=== PATIENT | male | born 1945 | race Caucasian/White ===

== ENCOUNTER 2017-01-25 09:02 | Outpatient (CLI) | payer MEDICARE, OTHER | END 2017-01-25 09:03 | disposition home or self-care (01) | DX: R73.02 Impaired glucose tolerance (oral) (principal); I25.10 Atherosclerotic heart disease of native coronary artery without angina pectoris; I10 Essential (primary) hypertension; E55.9 Vitamin D deficiency, unspecified; E78.00 Pure hypercholesterolemia, unspecified; E78.1 Pure hyperglyceridemia; E78.2 Mixed hyperlipidemia ==

== ENCOUNTER 2017-04-26 09:44 | Outpatient (CLI) | payer MEDICARE, OTHER ==
[2017-04-26 11:14] LABS: GTT GLUCOSE,FASTING 111 mg/dL (70-100)
[2017-04-28 18:48] LABS: TEST RESULT REPORT (())
== END 2017-04-26 09:45 | disposition home or self-care (01) ==
LOC: LAB 09:44
PROVIDERS: ATTEND Nurse Practitioner
DX: E55.9 Vitamin D deficiency, unspecified (principal); I10 Essential (primary) hypertension; E78.00 Pure hypercholesterolemia, unspecified; E78.2 Mixed hyperlipidemia
CPT/HCPCS: 36415; 81599; 82951; 83525; 85384

== ENCOUNTER 2017-07-26 09:59 | Outpatient (CLI) | payer MEDICARE, OTHER ==
[2017-07-26 11:05] LABS: CHOL/HDL RATIO 2.5 (<5.0); CHOLESTEROL 113 mg/dL; HDL CHOLESTEROL 45 mg/dL; LDL/HDL RATIO 1.3 (<3.6); TRIGLYCERIDES 53 mg/dL; VLDL CHOLESTEROL 11 mg/dL
[2017-07-28 11:01] LABS: TEST RESULT REPORT (())
== END 2017-07-26 10:00 | disposition home or self-care (01) ==
LOC: LAB 09:59
PROVIDERS: ATTEND Nurse Practitioner
DX: I10 Essential (primary) hypertension (principal); R73.02 Impaired glucose tolerance (oral); E55.9 Vitamin D deficiency, unspecified; E78.00 Pure hypercholesterolemia, unspecified; E78.2 Mixed hyperlipidemia; I25.10 Atherosclerotic heart disease of native coronary artery without angina pectoris
CPT/HCPCS: 36415; 80061; 81599; 82172

== ENCOUNTER 2017-11-28 09:57 | Outpatient (CLI) | payer MEDICARE, OTHER ==
[2017-11-28 11:26] LABS: CHOL/HDL RATIO 2.3 (<5.0); CHOLESTEROL 117 mg/dL; HDL CHOLESTEROL 51 mg/dL; LDL CHOLESTEROL,CALCULATED 56 mg/dL; LDL/HDL RATIO 1.1 (<3.6); VLDL CHOLESTEROL 10 mg/dL
== END 2017-11-28 09:58 | disposition home or self-care (01) ==
LOC: LAB 09:57
PROVIDERS: ATTEND Nurse Practitioner
DX: R73.02 Impaired glucose tolerance (oral) (principal); E78.2 Mixed hyperlipidemia; I10 Essential (primary) hypertension; E55.9 Vitamin D deficiency, unspecified; E78.00 Pure hypercholesterolemia, unspecified; E88.81 Metabolic syndrome and other insulin resistance; I25.10 Atherosclerotic heart disease of native coronary artery without angina pectoris
CPT/HCPCS: 36415; 80061; 81599; 82172; 83721

== ENCOUNTER 2018-03-14 10:07 | Outpatient (CLI) | payer MEDICARE, OTHER ==
[2018-03-14 11:13] LABS: BILIRUBIN,URINE NEGATIVE (NEGATIVE); GLUCOSE, URINE (UA) NEGATIVE (NEGATIVE); KETONES,URINE (UA) NEGATIVE (NEGATIVE); LEUKOCYTE ESTERASE, URINE NEGATIVE (NEGATIVE); NITRITE,URINE NEGATIVE (NEGATIVE); OCCULT BLOOD,URINE NEGATIVE (NEGATIVE); PROTEIN,URINE NEGATIVE (NEGATIVE); UROBILINOGEN,URINE 0.2 (NORMAL) E.U./dL (NORMAL)
[2018-03-14 11:28] LABS: CLARITY,URINE CLEAR (CLEAR)
[2018-03-14 11:29] LABS: CHOL/HDL RATIO 2.8 (<5.0); CHOLESTEROL 116 mg/dL; HDL CHOLESTEROL 41 mg/dL; LDL CHOLESTEROL,CALCULATED 66 mg/dL; LDL/HDL RATIO 1.6 (<3.6); VLDL CHOLESTEROL 9 mg/dL
[2018-03-15 11:16] LABS: HEPATITIS C ANTIBODY NON-REACTIVE (NON-REACTIVE)
== END 2018-03-14 10:08 | disposition home or self-care (01) ==
LOC: LAB 10:07
PROVIDERS: ATTEND Nurse Practitioner
DX: R73.02 Impaired glucose tolerance (oral) (principal); I10 Essential (primary) hypertension; E55.9 Vitamin D deficiency, unspecified; E78.00 Pure hypercholesterolemia, unspecified; E78.2 Mixed hyperlipidemia; E88.81 Metabolic syndrome and other insulin resistance; I25.10 Atherosclerotic heart disease of native coronary artery without angina pectoris
CPT/HCPCS: 36415; 80061; 81003; 81599; 82172; 82951; 83721; 84402; 84403; 85384; 86803

== ENCOUNTER 2018-08-24 11:00 | Outpatient (CLI) | payer MEDICARE, OTHER ==
[2018-08-24 17:37] LABS: BASOPHILS % (AUTO) 0.5 %; EOSINOPHILS # (AUTO) 0.1 10^3/uL (0.0-0.7); HGB - HEMOGLOBIN 10.6 g/dL (14.0-18.0); LYMPHOCYTES # (AUTO) 1.8 10^3/uL (1.5-3.5); LYMPHOCYTES % (AUTO) 21.8 %; MEAN CORPUSCULAR HEMOGLOBIN 28.2 pg (27.0-31.0); MEAN CORPUSCULAR HGB CONC 32.9 g/dL (32.0-36.0); MEAN CORPUSCULAR VOLUME 85.7 fL (80.0-94.0); MEAN PLATELET VOLUME 7.5 fL (7.4-11.4); MONOCYTES # (AUTO) 0.7 10^3/uL (0.0-1.0); MONOCYTES % (AUTO) 7.8 %; NEUTROPHILS # (AUTO) 5.8 10^3/uL (1.5-6.6); NEUTROPHILS % (AUTO) 68.9 %; PLT - PLATELET COUNT 341 10^3/uL (130-450); RED BLOOD COUNT 3.77 10^6/uL (4.70-6.10); RED CELL DISTRIBUTION WIDTH 15.8 % (12.0-15.0); WHITE BLOOD COUNT 8.4 x10^3/uL (4.8-10.8)
[2018-08-24 17:59] LABS: ALBUMIN/GLOBULIN RATIO 1.3 (1.0-2.2); BILIRUBIN,TOTAL 0.3 mg/dL (0.2-1.0); CALCIUM 9.8 mg/dL (8.5-10.3); CREATININE 0.7 mg/dL (0.6-1.2); TOTAL PROTEIN 7.1 g/dL (6.7-8.2)
== END 2018-08-24 11:01 | disposition home or self-care (01) ==
LOC: LAB.F 11:00
PROVIDERS: ATTEND Internal Medicine
DX: R10.13 Epigastric pain (principal)
CPT/HCPCS: 36415; 80053; 85025

== ENCOUNTER 2018-08-29 14:01 | Outpatient (CLI) | payer MEDICARE, OTHER ==
[2018-08-29 18:05] LABS: BASOPHILS % (AUTO) 0.4 %; EOSINOPHILS # (AUTO) 0.1 10^3/uL (0.0-0.7); EOSINOPHILS % (AUTO) 0.7 %; HGB - HEMOGLOBIN 10.6 g/dL (14.0-18.0); LYMPHOCYTES # (AUTO) 1.8 10^3/uL (1.5-3.5); LYMPHOCYTES % (AUTO) 21.5 %; MEAN CORPUSCULAR HEMOGLOBIN 28.4 pg (27.0-31.0); MEAN CORPUSCULAR HGB CONC 33.3 g/dL (32.0-36.0); MEAN CORPUSCULAR VOLUME 85.1 fL (80.0-94.0); MEAN PLATELET VOLUME 7.2 fL (7.4-11.4); MEAN RETIC VALUE 112.8; MONOCYTES # (AUTO) 0.6 10^3/uL (0.0-1.0); MONOCYTES % (AUTO) 7.1 %; NEUTROPHILS # (AUTO) 5.7 10^3/uL (1.5-6.6); NEUTROPHILS % (AUTO) 70.3 %; PLT - PLATELET COUNT 338 10^3/uL (130-450); RED BLOOD COUNT 3.72 10^6/uL (4.70-6.10); RED CELL DISTRIBUTION WIDTH 16.1 % (12.0-15.0); WHITE BLOOD COUNT 8.1 x10^3/uL (4.8-10.8)
[2018-08-29 18:38] LABS: THYROID STIMULATING HORMONE 1.11 uIU/mL (0.34-5.60)
[2018-08-29 18:46] LABS: FERRITIN 15.7 ng/mL (23.9-336.2)
[2018-08-29 18:49] LABS: FOLATE 20.45 ng/mL (5.90 - >24.8)
[2018-08-29 19:20] LABS: % IRON SATURATION 5 % (20-50); IRON 27 ug/dL (45-182); TOTAL IRON BINDING CAPACITY 504 ug/dL (250-450); TRANSFERRIN 360 mg/dL (180-329)
== END 2018-08-29 14:02 | disposition home or self-care (01) ==
LOC: LAB.F 14:01
PROVIDERS: ATTEND Internal Medicine
DX: D64.9 Anemia, unspecified (principal)
CPT/HCPCS: 36415; 81599; 82607; 82728; 82746; 83540; 84443; 84466; 85025; 85044

== ENCOUNTER 2018-09-04 16:57 | Outpatient (CLI) | payer MEDICARE, OTHER ==
--- NOTE | 2018-09-04 23:42 | Ultrasound Report ---
Reason: ABDOMINAL PAIN, EPIGASTRIC, ABDOMINAL AORTIC ANEUR Procedure Date: 09/04/2018 Accession Number: [id number] / [id number] Procedure: US - Abdomen Complete CPT Code: FULL RESULT: EXAM: ABDOMEN ULTRASOUND EXAM DATE: 09/04/2018 06:05 PM. CLINICAL HISTORY: Abdominal pain, epigastric, abdominal aortic aneurysm. COMPARISON: Retroperitoneal limited 11/25/2015 9:22 AM. Abdomen/pelvis with and without contrast 05/07/2014 1:27 PM. 11/26/2014 9:32 AM. TECHNIQUE: Real-time scanning was performed with static images obtained. FINDINGS: Liver: Normal in size and echotexture. 15.2 cm. Main portal vein flow: Hepatopetal. Gallbladder: Surgically absent. Biliary System: Common bile duct measures 6 mm. No intrahepatic or extrahepatic ductal dilatation. Pancreas: No mass, atrophy or calcifications. Pancreatic duct measures up to 2 mm. Kidneys: Right: 12.9 cm longitudinally. 0.7 cm echogenic focus noted in the mid right kidney with posterior acoustic shadowing. No renal mass is noted. There are multiple simple right-sided renal cysts with the largest including a 2.9 x 2.5 x 2.6 cm inferior right and 2.1 x 1.7 x 2.2 cm mid right renal simple cyst. Left: 12.7 cm longitudinally. No contour-deforming mass, stones, or hydronephrosis. There are multiple simple left-sided renal cysts with the largest cyst including a 4.7 x 3.4 x 4.8 cm superior left and 4.8 x 4.5 x 5.1 cm inferior left renal simple cyst. No concerning features. Spleen: 8 x 3.1 x 8.1 cm. Normal in size and echotexture. Aorta and Inferior Vena Cava: Distal abdominal aortic aneurysm measures 5.3 x 4.6 cm. Previously measuring 5.1 x 4.8 cm. Length of the aneurysm measures 7.2 cm. Mid abdominal aorta is ectatic measuring between 2.6 cm and 3.3 cm respectively. Normal proximal abdominal aorta. Eccentric thrombus is noted. Normal IVC. Other: Technically limited study due to body habitus. IMPRESSION: 1. No liver mass or intrahepatic bile duct dilation. 2. Gallbladder is surgically absent. No common bile duct or intrahepatic bile duct dilation. Pancreas grossly unremarkable. Pancreatic duct measures 2 mm. 3. Relatively stable distal abdominal aortic aneurysm with eccentric thrombus. No retroperitoneal hematoma. Ectasia of the midabdominal aorta. 4. Multiple bilateral renal cysts. No concerning features. Nonobstructing right-sided 0.7 cm renal stone. No mass. RADIA
== END 2018-09-04 16:58 | disposition home or self-care (01) ==
LOC: DI 16:57
PROVIDERS: ATTEND Internal Medicine
DX: I71.4 Abdominal aortic aneurysm, without rupture (principal); Q61.02 Congenital multiple renal cysts; N20.0 Calculus of kidney
CPT/HCPCS: 76700

== ENCOUNTER 2018-09-05 09:39 | Outpatient (CLI) | payer MEDICARE, OTHER ==
[2018-09-05 10:37] LABS: ALT ALANINE AMINOTRANSFERASE 13 IU/L (10-60); AST ASPARTATE AMINOTRANSFERASE 36 IU/L (10-42); CHOL/HDL RATIO 2.4 (<5.0); CHOLESTEROL 129 mg/dL; CREATININE 0.7 mg/dL (0.6-1.2); GFR - MDRD 111 (>89); GLUCOSE 102 mg/dL (70-100); HDL CHOLESTEROL 53 mg/dL
[2018-09-05 10:49] LABS: HEMOGLOBIN A1C 0.46 g/dL
[2018-09-05 10:57] LABS: LDL CHOLESTEROL,DIRECT 66 mg/dL; LDLD/HDL RATIO 1.2 (<3.6)
[2018-09-06 11:41] LABS: HEPATITIS C ANTIBODY NON-REACTIVE (NON-REACTIVE)
== END 2018-09-05 09:40 | disposition home or self-care (01) ==
LOC: LAB 09:39
PROVIDERS: ATTEND Nurse Practitioner
DX: R73.02 Impaired glucose tolerance (oral) (principal); I25.10 Atherosclerotic heart disease of native coronary artery without angina pectoris; I10 Essential (primary) hypertension; E55.9 Vitamin D deficiency, unspecified; E78.00 Pure hypercholesterolemia, unspecified; E78.2 Mixed hyperlipidemia
CPT/HCPCS: 36415; 80061; 81599; 82565; 82947; 83036; 83721; 84450; 84460; 86803

== ENCOUNTER 2018-11-27 10:49 | Outpatient (CLI) | payer MEDICARE, OTHER | END 2018-11-27 10:50 | disposition home or self-care (01) | LOC: LAB.F 10:49 | PROVIDERS: ATTEND Internal Medicine Gastroenterology | DX: R19.4 Change in bowel habit (principal); D50.9 Iron deficiency anemia, unspecified; R10.84 Generalized abdominal pain | CPT/HCPCS: 36415; 81599; 83516; 86255 ==

== ENCOUNTER 2019-01-16 09:27 | Outpatient (CLI) | payer MEDICARE, OTHER ==
[2019-01-16 10:25] LABS: CHOLESTEROL 110 mg/dL; HDL CHOLESTEROL 54 mg/dL
[2019-01-16 10:45] LABS: LDL CHOLESTEROL,DIRECT 53 mg/dL
== END 2019-01-16 09:28 | disposition home or self-care (01) ==
LOC: LAB 09:27
PROVIDERS: ATTEND Nurse Practitioner
DX: E55.9 Vitamin D deficiency, unspecified (principal); I10 Essential (primary) hypertension; E78.2 Mixed hyperlipidemia; I25.10 Atherosclerotic heart disease of native coronary artery without angina pectoris; R73.02 Impaired glucose tolerance (oral)
CPT/HCPCS: 36415; 80061; 81599; 82172; 83721

== ENCOUNTER 2019-04-04 08:10 | Outpatient (CLI) | payer MEDICARE, OTHER ==
[2019-04-04 10:56] LABS: BASOPHILS # (AUTO) 0.1 10^3/uL (0.0-0.1); BASOPHILS % (AUTO) 0.7 %; EOSINOPHILS # (AUTO) 0.2 10^3/uL (0.0-0.7); EOSINOPHILS % (AUTO) 2.2 %; HGB - HEMOGLOBIN 9.8 g/dL (14.0-18.0); LYMPHOCYTES # (AUTO) 1.7 10^3/uL (1.5-3.5); LYMPHOCYTES % (AUTO) 18.9 %; MEAN CORPUSCULAR HEMOGLOBIN 27.4 pg (27.0-31.0); MEAN CORPUSCULAR HGB CONC 32.2 g/dL (32.0-36.0); MEAN CORPUSCULAR VOLUME 85.2 fL (80.0-94.0); MONOCYTES # (AUTO) 0.7 10^3/uL (0.0-1.0); MONOCYTES % (AUTO) 7.3 %; NEUTROPHILS # (AUTO) 6.3 10^3/uL (1.5-6.6); NEUTROPHILS % (AUTO) 70.9 %; PLT - PLATELET COUNT 398 10^3/uL (130-450); RED BLOOD COUNT 3.58 10^6/uL (4.70-6.10); RED CELL DISTRIBUTION WIDTH 15.8 % (12.0-15.0); WHITE BLOOD COUNT 8.9 x10^3/uL (4.8-10.8)
[2019-04-04 11:01] LABS: ALBUMIN 3.6 g/dL (3.2-5.5); BILIRUBIN,TOTAL 0.3 mg/dL (0.2-1.0); CREATININE 0.9 mg/dL (0.6-1.2); TOTAL PROTEIN 7.3 g/dL (6.7-8.2)
[2019-04-04 11:17] LABS: HB2 TOTAL 10.2 g/dL; HEMOGLOBIN A1C 0.56 g/dL; HEMOGLOBIN A1C % 7.2 % (4.6-6.2)
== END 2019-04-04 08:11 | disposition home or self-care (01) ==
LOC: LAB.F 08:10
PROVIDERS: ATTEND Internal Medicine
DX: R63.4 Abnormal weight loss (principal); Z12.5 Encounter for screening for malignant neoplasm of prostate
CPT/HCPCS: 36415; 83036; G0103; 80053; 84153; 84443; 85025

== ENCOUNTER 2019-05-10 11:26 | Outpatient (CLI) | payer MEDICARE, OTHER ==
--- NOTE | 2019-05-10 16:30 | XRAY Report ---
Reason: WEIGHT LOSS ABNORMAL Procedure Date: 05/10/2019 Accession Number: [id number] / [id number] Procedure: XR - Chest 2 View X-Ray CPT Code: 15777 FULL RESULT: EXAM: CHEST RADIOGRAPHY 2 VIEWS EXAM DATE: 05/10/2019. CLINICAL HISTORY: Abnormal weight loss. COMPARISON: None. TECHNIQUE: PA and lateral views. FINDINGS: Lungs/Pleura: Normal vasculature. Left upper lobe mass anterior to the left hilum, 8.2 x 9.5 x 9.5 cm. The mass is contiguous with the left hilum, the left mediastinum, the ascending aorta in the anterior chest wall. The left diaphragm is elevated suggesting phrenic nerve involvement. No pleural fluid or pneumothorax. Mediastinum: Heart size is normal. Atherosclerotic calcifications in the aorta. Bones: Mild degenerative changes of the spine. Other: Upper abdominal aortic stent. Cholecystectomy clips in the upper abdomen. IMPRESSION: Large left upper lobe mass contiguous with the left hilum, left side of the mediastinum, ascending aorta and anterior left chest wall, consistent with carcinoma. Elevation of the left diaphragm suggests left phrenic nerve involvement. Recommend further evaluation with chest CT. Note: The findings were called to Perla, a nurse practitioner at the clinic, at 1625 on 05/10/2019. SANCHO
== END 2019-05-10 11:27 | disposition home or self-care (01) ==
LOC: DI 11:26
PROVIDERS: ATTEND Internal Medicine
DX: R63.4 Abnormal weight loss (principal); R91.8 Other nonspecific abnormal finding of lung field
CPT/HCPCS: 71046

== ENCOUNTER 2019-05-17 10:38 | Outpatient (CLI) | payer MEDICARE, OTHER ==
[2019-05-17] MEDS ORDERED: IOVERSOL 320 100 ML VIAL IVP ONE ×2 (10:53→11:07)
--- NOTE | 2019-05-17 17:25 | CT Report ---
Reason: WEIGHT LOSS ABNORMAL, NEOPLASM, LUNG, UNCERTAIN BE Procedure Date: 05/17/2019 Accession Number: [id number] / [id number] Procedure: CT - CHEST W CPT Code: FULL RESULT: EXAM: CT CHEST EXAM DATE: 05/17/2019 11:06 AM. CLINICAL HISTORY: WEIGHT LOSS ABNORMAL, NEOPLASM, LUNG, UNCERTAIN BE. COMPARISONS: CHEST 2 VIEW 05/10/2019 12:10 PM. TECHNIQUE: Routine helical CT imaging was performed through the chest. IV contrast: 80 cc Optiray 320. Reconstructions: Coronal and sagittal. In accordance with CT protocol optimization, one or more of the following dose reduction techniques were utilized for this exam: automated exposure control, adjustment of mA and/or KV based on patient size, or use of iterative reconstructive technique. FINDINGS: Lungs/Pleura: Large slightly lobulated anterior left upper lobe mass measuring as much as 10.0 x 7.7 x 8.4 cm, inseparable from the adjacent mediastinum and displacing it slightly. 4.5 mm nodule in right lower lobe on series 4 image 28. Roughly 5 mm poorly defined nodule in the left lung base on that same image. No effusion or pneumothorax. Mediastinum: Normal overall heart size. No pericardial effusion. At least 3 vessel coronary artery calcification. Left lung mass inseparable from mediastinum, making it difficult to exclude AP window adenopathy. No other evidence of lymphadenopathy. Bones: Mild scoliosis with degenerative changes. Visualized Abdomen: Abdominal aortic aneurysm incompletely seen, with stent in place. Multiple renal cysts. Status post cholecystectomy. Other: Mild to moderate bilateral gynecomastia. IMPRESSION: 1. Large anterior left upper lobe mass inseparable from adjacent mediastinum. Biopsy is recommended. 2. Other small nodular densities, one on the right and one on the left, benign versus metastatic. 3. Coronary artery calcifications and other chronic or incidental findings. RADIA
== END 2019-05-17 10:39 | disposition home or self-care (01) ==
LOC: DI 10:38
PROVIDERS: ATTEND Internal Medicine
DX: R91.8 Other nonspecific abnormal finding of lung field (principal); D38.1 Neoplasm of uncertain behavior of trachea, bronchus and lung; R63.4 Abnormal weight loss
CPT/HCPCS: 71260; Q9967

== ENCOUNTER 2019-06-12 08:56 | Outpatient (CLI) | payer MEDICARE, OTHER ==
[2019-06-12 10:19] LABS: BILIRUBIN,URINE NEGATIVE (NEGATIVE); GLUCOSE, URINE (UA) NEGATIVE (NEGATIVE); KETONES,URINE (UA) NEGATIVE (NEGATIVE); LEUKOCYTE ESTERASE, URINE NEGATIVE (NEGATIVE); NITRITE,URINE NEGATIVE (NEGATIVE); OCCULT BLOOD,URINE NEGATIVE (NEGATIVE); PROTEIN,URINE NEGATIVE (NEGATIVE); UROBILINOGEN,URINE 0.2 (NORMAL) E.U./dL (NORMAL)
[2019-06-12 10:20] LABS: BACTERIA,URINE None Seen /HPF (None Seen); CLARITY,URINE CLEAR (CLEAR); RBC,URINE None Seen /HPF (0-5); SQUAMOUS EPITHELIAL CELL,UR NONE SEEN (<= Few)
== END 2019-06-12 08:57 | disposition home or self-care (01) ==
LOC: LAB 08:56
PROVIDERS: ATTEND Nurse Practitioner
DX: E55.9 Vitamin D deficiency, unspecified (principal); E78.00 Pure hypercholesterolemia, unspecified; E78.2 Mixed hyperlipidemia; I10 Essential (primary) hypertension; R73.02 Impaired glucose tolerance (oral); E79.0 Hyperuricemia without signs of inflammatory arthritis and tophaceous disease; I25.10 Atherosclerotic heart disease of native coronary artery without angina pectoris; I70.90 Unspecified atherosclerosis
CPT/HCPCS: 36415; 81001; 82951; 82977; 87086

== ENCOUNTER 2019-07-17 15:27 | Outpatient (CLI) | payer MEDICARE, OTHER ==
[2019-07-17 17:45] LABS: CREATININE 1.1 mg/dL (0.6-1.2)
== END 2019-07-17 15:28 | disposition home or self-care (01) ==
LOC: LAB.S 15:27
PROVIDERS: ATTEND Specialist
DX: C79.31 Secondary malignant neoplasm of brain (principal); C34.90 Malignant neoplasm of unspecified part of unspecified bronchus or lung
CPT/HCPCS: 36415; 82565; 84520

== ENCOUNTER 2019-08-13 14:20 | Outpatient (CLI) | payer MEDICARE, OTHER ==
[2019-08-13 15:19] LABS: BASOPHILS # (AUTO) 0.1 10^3/uL (0.0-0.1); BASOPHILS % (AUTO) 0.5 %; EOSINOPHILS # (AUTO) 0.1 10^3/uL (0.0-0.7); EOSINOPHILS % (AUTO) 1.3 %; HGB - HEMOGLOBIN 8.2 g/dL (14.0-18.0); LYMPHOCYTES # (AUTO) 1.9 10^3/uL (1.5-3.5); LYMPHOCYTES % (AUTO) 17.7 %; MEAN CORPUSCULAR HEMOGLOBIN 24.1 pg (27.0-31.0); MEAN CORPUSCULAR VOLUME 80.3 fL (80.0-94.0); MEAN PLATELET VOLUME 7.9 fL (7.4-11.4); MONOCYTES # (AUTO) 0.8 10^3/uL (0.0-1.0); MONOCYTES % (AUTO) 7.3 %; NEUTROPHILS # (AUTO) 7.7 10^3/uL (1.5-6.6); NEUTROPHILS % (AUTO) 72.8 %; PLT - PLATELET COUNT 506 10^3/uL (130-450); RED CELL DISTRIBUTION WIDTH 15.7 % (12.0-15.0); WHITE BLOOD COUNT 10.6 x10^3/uL (4.8-10.8)
[2019-08-13 15:34] LABS: ALBUMIN 3.5 g/dL (3.2-5.5); ALBUMIN/GLOBULIN RATIO 0.9 (1.0-2.2); ALKALINE PHOSPHATASE 37 IU/L (42-121); ALT ALANINE AMINOTRANSFERASE < 10 IU/L (10-60); AST ASPARTATE AMINOTRANSFERASE 24 IU/L (10-42); BILIRUBIN,TOTAL 0.4 mg/dL (0.2-1.0); BUN - BLOOD UREA NITROGEN 21 mg/dL (6-20); CALCIUM 10.5 mg/dL (8.5-10.3); CARBON DIOXIDE - CO2 29 mmol/L (21-32); CHLORIDE 99 mmol/L (101-111); CREATININE 0.9 mg/dL (0.6-1.2); GFR - MDRD 83 (>89); GLUCOSE 141 mg/dL (70-100); SODIUM 139 mmol/L (135-145); TOTAL PROTEIN 7.4 g/dL (6.7-8.2)
== END 2019-08-13 14:21 | disposition home or self-care (01) ==
LOC: LAB.S 14:20 → LAB 14:21
PROVIDERS: ATTEND Internal Medicine
DX: C79.31 Secondary malignant neoplasm of brain (principal)
CPT/HCPCS: 36415; 80053; 84443; 85025

== ENCOUNTER 2019-08-21 12:59 | Outpatient (CLI) | payer MEDICARE, OTHER ==
[2019-08-21 17:22] LABS: BASOPHILS % (AUTO) 0.3 %; EOSINOPHILS # (AUTO) 0.2 10^3/uL (0.0-0.7); EOSINOPHILS % (AUTO) 2.5 %; HGB - HEMOGLOBIN 8.2 g/dL (14.0-18.0); LYMPHOCYTES # (AUTO) 1.2 10^3/uL (1.5-3.5); LYMPHOCYTES % (AUTO) 17.2 %; MEAN CORPUSCULAR HEMOGLOBIN 23.8 pg (27.0-31.0); MEAN CORPUSCULAR VOLUME 79.1 fL (80.0-94.0); MEAN PLATELET VOLUME 9.5 fL (7.4-11.4); MONOCYTES # (AUTO) 0.2 10^3/uL (0.0-1.0); MONOCYTES % (AUTO) 3.4 %; NEUTROPHILS # (AUTO) 5.5 10^3/uL (1.5-6.6); NEUTROPHILS % (AUTO) 76.2 %; PLT - PLATELET COUNT 471 10^3/uL (130-450); RED BLOOD COUNT 3.45 10^6/uL (4.70-6.10); RED CELL DISTRIBUTION WIDTH 15.9 % (12.0-15.0); WHITE BLOOD COUNT 7.2 x10^3/uL (4.8-10.8)
[2019-08-21 18:04] LABS: ALBUMIN 3.4 g/dL (3.2-5.5); ALBUMIN/GLOBULIN RATIO 0.9 (1.0-2.2); ALKALINE PHOSPHATASE 32 IU/L (42-121); ALT ALANINE AMINOTRANSFERASE < 10 IU/L (10-60); AST ASPARTATE AMINOTRANSFERASE 27 IU/L (10-42); BILIRUBIN,TOTAL 0.5 mg/dL (0.2-1.0); BUN - BLOOD UREA NITROGEN 28 mg/dL (6-20); CALCIUM 9.6 mg/dL (8.5-10.3); CARBON DIOXIDE - CO2 30 mmol/L (21-32); CHLORIDE 99 mmol/L (101-111); CREATININE 1.1 mg/dL (0.6-1.2); GFR - MDRD 66 (>89); GLUCOSE 164 mg/dL (70-100); SODIUM 138 mmol/L (135-145)
== END 2019-08-21 13:00 | disposition home or self-care (01) ==
LOC: LAB.S 12:59
PROVIDERS: ATTEND Internal Medicine
DX: C79.31 Secondary malignant neoplasm of brain (principal)
CPT/HCPCS: 36415; 80053; 85025

== ENCOUNTER 2019-09-04 11:25 | Outpatient (CLI) | payer MEDICARE, OTHER ==
[2019-09-04 17:54] LABS: BASOPHILS # (AUTO) 0.1 10^3/uL (0.0-0.1); EOSINOPHILS # (AUTO) 0.2 10^3/uL (0.0-0.7); EOSINOPHILS % (AUTO) 3.3 %; HGB - HEMOGLOBIN 8.6 g/dL (14.0-18.0); LYMPHOCYTES # (AUTO) 1.7 10^3/uL (1.5-3.5); LYMPHOCYTES % (AUTO) 27.8 %; MEAN CORPUSCULAR HEMOGLOBIN 23.2 pg (27.0-31.0); MEAN CORPUSCULAR HGB CONC 29.2 g/dL (32.0-36.0); MEAN CORPUSCULAR VOLUME 79.7 fL (80.0-94.0); MEAN PLATELET VOLUME 8.9 fL (7.4-11.4); MONOCYTES # (AUTO) 0.9 10^3/uL (0.0-1.0); MONOCYTES % (AUTO) 15.3 %; NEUTROPHILS # (AUTO) 3.2 10^3/uL (1.5-6.6); NEUTROPHILS % (AUTO) 51.9 %; PLT - PLATELET COUNT 393 10^3/uL (130-450); RED CELL DISTRIBUTION WIDTH 16.8 % (12.0-15.0); WHITE BLOOD COUNT 6.1 x10^3/uL (4.8-10.8)
[2019-09-04 18:23] LABS: ALBUMIN 3.6 g/dL (3.2-5.5); ALBUMIN/GLOBULIN RATIO 0.9 (1.0-2.2); ALKALINE PHOSPHATASE 38 IU/L (42-121); ALT ALANINE AMINOTRANSFERASE < 10 IU/L (10-60); AST ASPARTATE AMINOTRANSFERASE 21 IU/L (10-42); BILIRUBIN,TOTAL 0.5 mg/dL (0.2-1.0); BUN - BLOOD UREA NITROGEN 24 mg/dL (6-20); CALCIUM 9.7 mg/dL (8.5-10.3); CARBON DIOXIDE - CO2 29 mmol/L (21-32); CHLORIDE 102 mmol/L (101-111); CREATININE 0.9 mg/dL (0.6-1.2); GFR - MDRD 83 (>89); GLUCOSE 109 mg/dL (70-100); SODIUM 139 mmol/L (135-145); TOTAL PROTEIN 7.5 g/dL (6.7-8.2)
== END 2019-09-04 11:26 | disposition home or self-care (01) ==
LOC: LAB.S 11:25
PROVIDERS: ATTEND Internal Medicine
DX: C79.31 Secondary malignant neoplasm of brain (principal); C34.12 Malignant neoplasm of upper lobe, left bronchus or lung
CPT/HCPCS: 36415; 80053; 85025

== ENCOUNTER 2019-09-24 13:57 | Outpatient (CLI) | payer MEDICARE, OTHER ==
[2019-09-24 17:24] LABS: BASOPHILS % (AUTO) 0.4 %; EOSINOPHILS # (AUTO) 0.1 10^3/uL (0.0-0.7); EOSINOPHILS % (AUTO) 1.6 %; HGB - HEMOGLOBIN 9.1 g/dL (14.0-18.0); LYMPHOCYTES # (AUTO) 1.9 10^3/uL (1.5-3.5); LYMPHOCYTES % (AUTO) 41.5 %; MEAN CORPUSCULAR HEMOGLOBIN 24.3 pg (27.0-31.0); MEAN CORPUSCULAR HGB CONC 28.6 g/dL (32.0-36.0); MEAN PLATELET VOLUME 9.3 fL (7.4-11.4); MONOCYTES # (AUTO) 0.7 10^3/uL (0.0-1.0); MONOCYTES % (AUTO) 15.5 %; NEUTROPHILS # (AUTO) 1.8 10^3/uL (1.5-6.6); NEUTROPHILS % (AUTO) 40.6 %; PLT - PLATELET COUNT 340 10^3/uL (130-450); RED BLOOD COUNT 3.74 10^6/uL (4.70-6.10); RED CELL DISTRIBUTION WIDTH 24.7 % (12.0-15.0); WHITE BLOOD COUNT 4.5 x10^3/uL (4.8-10.8)
[2019-09-24 18:19] LABS: % IRON SATURATION 22 % (20-50); ALBUMIN 3.9 g/dL (3.2-5.5); ALBUMIN/GLOBULIN RATIO 1.1 (1.0-2.2); ALKALINE PHOSPHATASE 48 IU/L (42-121); ALT ALANINE AMINOTRANSFERASE < 10 IU/L (10-60); AST ASPARTATE AMINOTRANSFERASE 18 IU/L (10-42); BILIRUBIN,TOTAL 0.3 mg/dL (0.2-1.0); BUN - BLOOD UREA NITROGEN 24 mg/dL (6-20); CALCIUM 9.4 mg/dL (8.5-10.3); CARBON DIOXIDE - CO2 32 mmol/L (21-32); CHLORIDE 102 mmol/L (101-111); GFR - MDRD 73 (>89); GLUCOSE 123 mg/dL (70-100); IRON 115 ug/dL (45-182); SODIUM 142 mmol/L (135-145); TOTAL IRON BINDING CAPACITY 524 ug/dL (250-450); TOTAL PROTEIN 7.3 g/dL (6.7-8.2); TRANSFERRIN 374 mg/dL (180-329)
[2019-09-24 18:46] LABS: PLATELET ESTIMATE, MANUAL NORMAL (130-450,000) (NORMAL); PLATELET MORPHOLOGY NORMAL APPEARANCE (NORMAL)
== END 2019-09-24 13:58 | disposition home or self-care (01) ==
LOC: LAB.S 13:57
PROVIDERS: ATTEND Internal Medicine
DX: C34.12 Malignant neoplasm of upper lobe, left bronchus or lung (principal); C79.31 Secondary malignant neoplasm of brain
CPT/HCPCS: 36415; 80053; 82728; 83540; 84466; 85025

== ENCOUNTER 2019-09-25 08:46 | Outpatient (CLI) | payer MEDICARE, OTHER ==
[2019-09-25 09:47] LABS: CHOL/HDL RATIO 3.7 (<5.0); CHOLESTEROL 162 mg/dL; HDL CHOLESTEROL 44 mg/dL; LDL CHOLESTEROL,CALCULATED 101 mg/dL; LDL/HDL RATIO 2.3 (<3.6); VLDL CHOLESTEROL 17 mg/dL
== END 2019-09-25 08:47 | disposition home or self-care (01) ==
LOC: LAB 08:46
PROVIDERS: ATTEND Nurse Practitioner
DX: I10 Essential (primary) hypertension (principal); R73.02 Impaired glucose tolerance (oral); E55.9 Vitamin D deficiency, unspecified; E78.00 Pure hypercholesterolemia, unspecified; E78.2 Mixed hyperlipidemia; R73.09 Other abnormal glucose; E78.5 Hyperlipidemia, unspecified; I25.10 Atherosclerotic heart disease of native coronary artery without angina pectoris
CPT/HCPCS: 36415; 80061; 83721

== ENCOUNTER 2019-10-08 16:15 | Emergency (ER) | payer MEDICARE, OTHER ==
[2019-10-08] MEDS ORDERED: oxyCODONE 5 MG TABLET PO STA (17:27)
[2019-10-08] MEDS ORDERED: METHOCARBAMOL 500 MG TABLET PO STA (17:27)
[2019-10-08 18:20] LABS: BASOPHILS % (AUTO) 0.6 %; EOSINOPHILS % (AUTO) 0.6 %; HGB - HEMOGLOBIN 8.9 g/dL (14.0-18.0); LYMPHOCYTES % (AUTO) 29.7 %; MEAN CORPUSCULAR HEMOGLOBIN 25.9 pg (27.0-31.0); MEAN CORPUSCULAR HGB CONC 29.9 g/dL (32.0-36.0); MEAN CORPUSCULAR VOLUME 86.9 fL (80.0-94.0); MEAN PLATELET VOLUME 9.1 fL (7.4-11.4); MONOCYTES # (AUTO) 0.3 10^3/uL (0.0-1.0); MONOCYTES % (AUTO) 10.6 %; NEUTROPHILS # (AUTO) 1.9 10^3/uL (1.5-6.6); NEUTROPHILS % (AUTO) 58.2 %; PLT - PLATELET COUNT 186 10^3/uL (130-450); RED BLOOD COUNT 3.43 10^6/uL (4.70-6.10); RED CELL DISTRIBUTION WIDTH 27.8 % (12.0-15.0); WHITE BLOOD COUNT 3.2 x10^3/uL (4.8-10.8)
--- NOTE | 2019-10-08 18:36 | XRAY Report ---
Reason: Fall, R lat/post rib pain Procedure Date: 10/08/2019 Accession Number: [id number] / [id number] Procedure: XR - Ribs w/PA Chest RT CPT Code: Addended Final Report FULL RESULT: EXAM: RIGHT RIB RADIOGRAPHY EXAM DATE: 10/08/2019 05:54 PM. CLINICAL HISTORY: Fall, R lat/post rib pain. COMPARISON: CHEST 2 VIEW 05/10/2019 12:10 PM CHEST W/ 05/17/2019 10:57 AM. TECHNIQUE: 1 view of the chest and 4 views of the ribs. FINDINGS: Bones: Positive for a fracture of the lateral right seventh, eighth, and ninth ribs. There are nondisplaced fractures of the right 10th and 11th ribs. Lungs: There is a new moderate right pneumothorax. There is 73 mm of apical pleural separation. Mediastinum: There is a left hilar or AP window mass which appears less conspicuous or smaller in size. There is a new right-sided Port-A-Cath Other: There is subcutaneous emphysema in the lower lateral right chest wall. IMPRESSION: 1. New moderate right pneumothorax with 73 mm of apical pleural separation. 2. Fractures of the lateral right seventh through 11th ribs. RADIA The critical result notification system was initiated by Dr. Bam Patel at 06:34 PM on 10/08/2019. ADDENDUM: 10/08/19 18:40 The above critical result findings were discussed with Andrea Hernandez by Dr. Bam Patel at 06:40 PM on 10/08/2019.
[2019-10-08 18:37] LABS: ALBUMIN 4.1 g/dL (3.2-5.5); ALBUMIN/GLOBULIN RATIO 1.2 (1.0-2.2); BILIRUBIN,TOTAL 0.4 mg/dL (0.2-1.0); CALCIUM 9.8 mg/dL (8.5-10.3); CREATININE 0.8 mg/dL (0.6-1.2); TOTAL PROTEIN 7.6 g/dL (6.7-8.2)
[2019-10-08] MEDS ORDERED: LIDOCAINE 2%-EPI 1:100000 20 ML MDV SUBQ STA (18:51)
[2019-10-08] MEDS ORDERED: fentaNYL 100 MCG/2 ML VIAL IVP STA ×2 (18:53→19:56)
[2019-10-08 19:21] LABS: PLATELET ESTIMATE, MANUAL NORMAL (130-450,000) (NORMAL); PLATELET MORPHOLOGY NORMAL APPEARANCE (NORMAL)
--- NOTE | 2019-10-08 21:09 | ED Physician Documentation ---
History of Present Illness - Stated complaint Stated Complaint: GLF - RT SIDE PAIN - Chief complaint Chief Complaint: Trauma Ch/Bk - Additonal information Additional information: This is a 74-year-old male with a history of diabetes, peripheral vascular disease, hypertension, hyperlipidemia, lung cancer currently on chemotherapy, he follows at [facility] for his oncology, who presents with right sided chest pain. Patient was getting out of the shower and try to dry his feet when he tripped and fell landing with his right side on the edge of the bathtub. This occurred yesterday. He had immediate pain in the area and it worsened through today, it is worse when he takes of breath and when he moves. He states that he takes a deep breath and he has extreme pain so he is been breathing shallowly. He denies loss of consciousness pain in his neck, or any significant pain in his extremities. No abdominal pain or vomiting. Review of Systems Constitutional: denies: Fever Throat: denies: Dental pain / toothache Cardiac: reports: Chest pain / pressure Respiratory: reports: Dyspnea GI: denies: Abdominal Pain : denies: Dysuria Musculoskeletal: denies: Neck pain Neurologic: denies: Generalized weakness PD PAST MEDICAL HISTORY - Past Medical History Cardiovascular: High cholesterol, Coronary artery disease, Peripheral Vascular Disease, Other Respiratory: None Neuro: Peripheral neuropathy Endocrine/Autoimmune: Type 2 diabetes GI: Diverticulitis : Kidney stones HEENT: None Psych: None Musculoskeletal: Osteoarthritis Derm: None - Past Surgical History General: Cholecystectomy, Colonoscopy - Present Medications Home Medications: Ambulatory Orders Medication Instructions Recorded Confirmed Aspirin [Aspir 81] 81 mg PO DAILY 09/01/15 09/01/15 Cholecalciferol (Vitamin D3) 5,000 unit PO DAILY 09/01/15 09/01/15 [Vitamin D] Cinnamon Bark [Cinnamon] 1,700 mg PO DAILY 09/01/15 09/01/15 Fenofibrate Nanocrystallized 145 mg PO DAILY 09/01/15 09/01/15 [Tricor] Ferrous Gluconate 27 mg PO DAILY 09/01/15 09/03/15 Multivit-Mins/Iron/Folic/Lycop 1 tab PO DAILY 09/01/15 09/01/15 [Centrum Men's Tablet] Niacin [Niacin ER] 500 mg PO DAILY 09/01/15 09/01/15 Pioglitazone HCl [Actos] 45 mg PO DAILY 09/01/15 09/03/15 Ramipril 10 mg PO DAILY 09/01/15 09/03/15 Rosuvastatin Calcium [Crestor] 20 mg PO DAILY 09/01/15 09/03/15 - Allergies Allergies/Adverse Reactions: Allergies Allergy/AdvReac Type Severity Reaction Status Date / Time No Known Drug Allergies Allergy Verified 10/08/19 16:31 - Social History Does the pt smoke?: No Smoking Status: Former smoker Does the pt drink ETOH?: No Does the pt have substance abuse?: No - Immunizations Immunizations are current?: No PD ED PE NORMAL - Vitals Vital signs reviewed: Yes - General General: Alert and oriented X 3, No acute distress - HEENT HEENT: Atraumatic, PERRL, Pharynx benign - Neck Neck: Supple, no meningeal sign, No bony TTP - Cardiac Cardiac: Other (Mild tachycardia, regular rhythm) - Respiratory Respiratory: Other (Shallow breath sounds bilaterally, there is palpable crepitus on the right lateral side of his chest. There is no open wound. 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, No motor deficit, No sensory deficit, Normal speech Results - Vitals Vitals: Vital Signs - 24 hr 10/08/19 10/08/19 10/08/19 16:31 16:55 19:00 Temperature 36.6 C 36.8 C Heart Rate 114 H 104 H 88 Respiratory 16 22 18 Rate Blood Pressure 156/92 H 180/91 H 170/78 H O2 Saturation 94 92 91 L 10/08/19 10/08/19 10/08/19 20:20 20:34 20:41 Temperature Heart Rate 91 94 98 Respiratory 16 16 17 Rate Blood Pressure 197/106 H 192/104 H 182/92 H O2 Saturation 100 100 100 10/08/19 10/08/19 10/08/19 20:55 21:10 21:24 Temperature Heart Rate 97 93 Respiratory 17 18 Rate Blood Pressure 185/91 H 174/93 H O2 Saturation 93 91 L 95 10/08/19 10/08/19 22:03 22:24 Temperature 36.6 C Heart Rate 85 87 Respiratory 16 18 Rate Blood Pressure 152/86 H 155/91 H O2 Saturation 95 96 Oxygen O2 Source Nasal cannula - Labs Labs: Laboratory Tests 10/08/19 10/08/19 18:15 18:15 WBC 3.2 L RBC 3.43 L Hgb 8.9 L Hct 29.8 L MCV 86.9 MCH 25.9 L MCHC 29.9 L RDW 27.8 H Plt Count 186 MPV 9.1 Neut # (Auto) 1.9 Lymph # (Auto) 1.0 L [place] # (Auto) 0.3 Eos # (Auto) 0.0 Baso # (Auto) 0.0 Absolute Nucleated RBC 0.00 Nucleated RBC % 0.0 Manual Slide Review Indicated Platelet Estimate NORMAL (130-450,000) Platelet Morphology NORMAL APPEARANCE RBC Morph Micro Appear 2+ OVALOCYTES Sodium 139 Potassium 3.9 Chloride 101 Carbon Dioxide 27 Anion Gap 11.0 BUN 27 H Creatinine 0.8 Estimated GFR (MDRD) 95 Glucose 158 H Calcium 9.8 Total Bilirubin 0.4 AST 24 ALT 12 Alkaline Phosphatase 32 L Total Protein 7.6 Albumin 4.1 Globulin 3.5 Albumin/Globulin Ratio 1.2 Lipase 24 - Rads (name of study) Chest + ribs R Radiology: Other (Right seventh through 11th rib fractures, moderate pneumothorax on the right.) CXR post-chest tube Radiology: Other (Interval placement of right-sided chest tube terminating at the level of the right lung apex, reexpansion of the right lung with no residual pneumothorax, persistent right-sided rib fractures, trace right-sided pleural effusion/pneumothorax) Procedures - Chest Tube (location) 4th anterior axillary line Chest tube preparation: Consent obtained, Time out completed, Sterile prep and drape Chest tube location: Right, Anterior axillary line Chest tube anesthesia: Lidocaine Chest tube size: 16 (Nepali) Chest tube return: Air, Connected to suction Chest tube after care: Sutured, Confirmed with xray, Pt tolerated well PD MEDICAL DECISION MAKING - ED course Complexity details: considered differential (Rib fracture, pneumothorax, contusion, pneumonia) ED course: On arrival pt is non-toxic, his oxygen saturation is low-normal and he is tachycardic. XR shows moderate R pneumothorax and 7th-11th rib fractures. He has no signs of head, neck, abdomen, or extremity trauma. After consenting the patient a 16F surgical chest tube was placed and secured and pt had immediate improvement in his symptoms. Post-placement XR showed re-expansion of the lung and good placement. Labs showed stable anemia and expected leukopenia given his chemotherapy. Given he has 4 rib fractures, hospital policy is that he needs transfer a facility with higher level of care. I attempted to contact [facility] since he is established there with oncology, however they are on divert so he was transferred to [facility]. Dr. Hernández in the emergency department was accepting. Pt agrees with the plan, remains hemodynamically stable and pain is well controlled with intermittent fentanyl. He was transferred ALS. Departure - Departure Disposition: 02 Transfer Acute Care Hosp Clinical Impression: Ribs, multiple fractures Qualifiers: Encounter type: initial encounter Fracture type: closed Laterality: right Qualified Code(s): S22.41XA - Multiple fractures of ribs, right side, initial encounter for closed fracture Pneumothorax Qualifiers: Pneumothorax type: traumatic Encounter type: initial encounter Qualified Code(s): S27.0XXA - Traumatic pneumothorax, initial encounter Condition: Stable Discharge Date/Time: 10/08/19 23:15
--- NOTE | 2019-10-08 21:42 | XRAY Report ---
Reason: Chest tube placement Procedure Date: 10/08/2019 Accession Number: [id number] / [id number] Procedure: XR - Chest 1 View X-Ray CPT Code: 97339 Final Report FULL RESULT: EXAM: CHEST RADIOGRAPHY EXAM DATE: 10/08/2019 09:09 PM. CLINICAL HISTORY: Chest tube placement. COMPARISON: RIBS W/PA CHEST RT 10/08/2019 5:31 PM. TECHNIQUE: 1 view. FINDINGS: Lines and tubes: Interval placement of a right-sided chest tube which terminates at the level of the right lung apex. Stable position of the right chest wall infusion port. Lungs/Pleura: Interval reexpansion of the right lung. No significant residual pneumothorax identified status post chest tube placement. Trace right-sided pleural effusion. Mediastinum: Heart size within normal limits. No pulmonary vascular congestion. Osseous structures: Redemonstration of the displaced right sixth, seventh, and eighth rib fractures. The other rib fractures identified on the prior radiographs are not well visualized on this exam. IMPRESSION: 1. Interval placement of right-sided chest tube which terminates at the level of the right lung apex. 2. Interval reexpansion of the right lung. No significant residual pneumothorax identified status post tube placement. 3. Right-sided rib fractures. 4. Probable trace right-sided pleural effusion. RADIA
[2019-10-08 22:25] VITALS: BP 155/91
== END 2019-10-08 23:15 | disposition short-term general hospital (02) ==
LOC: ED 16:15
DX: S27.0XXA Traumatic pneumothorax, initial encounter (principal); S22.41XA Multiple fractures of ribs, right side, initial encounter for closed fracture; W18.2XXA Fall in (into) shower or empty bathtub, initial encounter; W22.8XXA Striking against or struck by other objects, initial encounter; Y93.E1 Activity, personal bathing and showering; Y92.002 Bathroom of unspecified non-institutional (private) residence as the place of occurrence of the external cause; I10 Essential (primary) hypertension; E11.42 Type 2 diabetes mellitus with diabetic polyneuropathy; Z79.899 Other long term (current) drug therapy; Z87.891 Personal history of nicotine dependence
CPT/HCPCS: 32551; 36415; 71101; 80053; 83690; 85025; 96374; 99284; 99285; A9270; 71045

== ENCOUNTER 2019-10-08 23:21 | Outpatient (CLI) | payer MEDICARE, OTHER | END 2019-10-08 23:59 | disposition short-term general hospital (02) | LOC: EMS 23:21 | PROVIDERS: ATTEND Surgery | DX: S27.0XXA Traumatic pneumothorax, initial encounter (principal); S22.41XA Multiple fractures of ribs, right side, initial encounter for closed fracture; W18.30XA Fall on same level, unspecified, initial encounter; M25.511 Pain in right shoulder; Z95.828 Presence of other vascular implants and grafts | CPT/HCPCS: A0425; A0426 ==

== ENCOUNTER 2019-10-17 10:35 | Outpatient (CLI) | payer MEDICARE, OTHER ==
[2019-10-17 10:56] LABS: BASOPHILS % (AUTO) 0.3 %; EOSINOPHILS # (AUTO) 0.1 10^3/uL (0.0-0.7); EOSINOPHILS % (AUTO) 1.4 %; HGB - HEMOGLOBIN 9.2 g/dL (14.0-18.0); LYMPHOCYTES # (AUTO) 1.8 10^3/uL (1.5-3.5); LYMPHOCYTES % (AUTO) 26.9 %; MEAN CORPUSCULAR HEMOGLOBIN 27.5 pg (27.0-31.0); MEAN CORPUSCULAR HGB CONC 29.8 g/dL (32.0-36.0); MEAN CORPUSCULAR VOLUME 92.2 fL (80.0-94.0); MEAN PLATELET VOLUME 8.7 fL (7.4-11.4); MONOCYTES # (AUTO) 0.8 10^3/uL (0.0-1.0); NEUTROPHILS # (AUTO) 3.8 10^3/uL (1.5-6.6); PLT - PLATELET COUNT 248 10^3/uL (130-450); RED BLOOD COUNT 3.35 10^6/uL (4.70-6.10); WHITE BLOOD COUNT 6.5 x10^3/uL (4.8-10.8)
[2019-10-17 11:14] LABS: ALBUMIN 3.7 g/dL (3.2-5.5); ALBUMIN/GLOBULIN RATIO 1.2 (1.0-2.2); BILIRUBIN,TOTAL 0.3 mg/dL (0.2-1.0); CALCIUM 9.4 mg/dL (8.5-10.3); CREATININE 0.8 mg/dL (0.6-1.2); TOTAL PROTEIN 6.9 g/dL (6.7-8.2)
[2019-10-17 11:24] LABS: THYROID STIMULATING HORMONE 5.1 uIU/mL (0.34-5.60)
[2019-10-17 11:29] LABS: FERRITIN 349.4 ng/mL (23.9-336.2)
== END 2019-10-17 10:36 | disposition home or self-care (01) ==
LOC: LAB 10:35
PROVIDERS: ATTEND Internal Medicine
DX: C34.12 Malignant neoplasm of upper lobe, left bronchus or lung (principal); C79.31 Secondary malignant neoplasm of brain
CPT/HCPCS: 36415; 80053; 82728; 83540; 84443; 84466; 85025

== ENCOUNTER 2019-10-25 03:54 | Outpatient (CLI) | payer MEDICARE, OTHER | END 2019-10-25 03:55 | disposition critical access hospital (66) | LOC: EMS 03:54 | PROVIDERS: ATTEND Surgery | DX: R06.02 Shortness of breath (principal); R19.5 Other fecal abnormalities; Z99.81 Dependence on supplemental oxygen | CPT/HCPCS: A0425; A0429 ==

== ENCOUNTER 2019-10-25 04:26 | Inpatient (IN) | payer MEDICARE, OTHER ==
--- NOTE | 2019-10-25 04:38 | ED Physician Documentation ---
History of Present Illness - Stated complaint Stated Complaint: SOA - Chief complaint Chief Complaint: Resp - Additonal information Additional information: This is a 74-year-old male with a history of lung cancer, currently on chemotherapy, recent fall with rib fractures and pneumothorax status post tube thoracostomy and hospitalization at [facility] on 10/08/2019, who presents with shortness of breath. Patient states that since recovering from his pneumothorax he has had slightly increased work of breathing, but tonight his breathing got a lot worse so EMS was called, they found him tripoding, put him on a nonrebreather and his work of breathing did improve somewhat. Patient states that he developed some increased shortness of breath a few hours ago and that mid abdominal pain shortly after this. He denies any vomiting, but EMS noted he had some bright red blood in the toilet bowl, which patient did not notice until EMS pointed out to him. He takes 81 mg of aspirin daily, no other blood thinners. He has a known anemia but this is been stable for him on past visits. Review of Systems Constitutional: denies: Fever Nose: denies: Rhinorrhea / runny nose Throat: denies: Sore throat Respiratory: reports: Dyspnea GI: denies: Abdominal Pain : denies: Dysuria Skin: denies: Rash Neurologic: reports: Generalized weakness Immunocompromised: reports: Chemotherapy PD PAST MEDICAL HISTORY - Past Medical History Past Medical History: Yes Cardiovascular: High cholesterol, Coronary artery disease, Peripheral Vascular Disease, Other Respiratory: None Neuro: Peripheral neuropathy Endocrine/Autoimmune: Type 2 diabetes GI: Diverticulitis : Kidney stones HEENT: None Psych: None Musculoskeletal: Osteoarthritis Derm: None - Past Surgical History Past Surgical History: Yes General: Cholecystectomy, Colonoscopy - Present Medications Home Medications: Ambulatory Orders Medication Instructions Recorded Confirmed Aspirin [Aspir 81] 81 mg PO DAILY 09/01/15 09/01/15 Cholecalciferol (Vitamin D3) 5,000 unit PO DAILY 09/01/15 09/01/15 [Vitamin D] Cinnamon Bark [Cinnamon] 1,700 mg PO DAILY 09/01/15 09/01/15 Fenofibrate Nanocrystallized 145 mg PO DAILY 09/01/15 09/01/15 [Tricor] Ferrous Gluconate 27 mg PO DAILY 09/01/15 09/03/15 Multivit-Mins/Iron/Folic/Lycop 1 tab PO DAILY 09/01/15 09/01/15 [Centrum Men's Tablet] Niacin [Niacin ER] 500 mg PO DAILY 09/01/15 09/01/15 Pioglitazone HCl [Actos] 45 mg PO DAILY 09/01/15 09/03/15 Ramipril 10 mg PO DAILY 09/01/15 09/03/15 Rosuvastatin Calcium [Crestor] 20 mg PO DAILY 09/01/15 09/03/15 - Allergies Allergies/Adverse Reactions: Allergies Allergy/AdvReac Type Severity Reaction Status Date / Time No Known Drug Allergies Allergy Verified 10/25/19 05:03 - Social History Does the pt smoke?: No Smoking Status: Never smoker Does the pt drink ETOH?: No Does the pt have substance abuse?: No - Immunizations Immunizations are current?: No PD ED PE NORMAL - Vitals Vital signs reviewed: Yes - General General: Alert and oriented X 3, No acute distress - HEENT HEENT: PERRL - Neck Neck: Supple, no meningeal sign - Cardiac Cardiac: RRR, No murmur - Respiratory Respiratory: Other (Thoracostomy tube site is closed with a clean bandage on the right anterior axillary line. Lung sounds are present bilaterally, no wheeze or stridor.) - Abdomen Abdomen: Normal bowel sounds, Soft, Non distended, Other (Mild tenderness in the mid abdomen palpation. No guarding) - Derm Derm: Warm and dry - Extremities Extremities: No deformity - Neuro Neuro: Alert and oriented X 3 - Psych Psych: Normal mood, Normal affect Results - Vitals Vitals: Vital Signs - 24 hr 10/25/19 10/25/19 10/25/19 04:30 05:20 06:21 Temperature 36.3 C L Heart Rate 111 H 103 H 98 Respiratory 26 H 22 18 Rate Blood Pressure 120/81 H 125/87 H 135/86 H O2 Saturation 100 98 100 10/25/19 10/25/19 10/25/19 07:02 07:07 07:18 Temperature 36.9 C 37.1 C 36.9 C Heart Rate 95 96 95 Respiratory 14 14 16 Rate Blood Pressure 119/104 H 120/100 H 143/88 H O2 Saturation 10/25/19 07:28 Temperature Heart Rate 90 Respiratory 13 Rate Blood Pressure 143/88 H O2 Saturation 100 Oxygen O2 Source Room air Oxygen Flow Rate 6 - EKG (time done) 4:32 Other comments: Other comments (Rate 107, rhythm sinus tachycardia cardia, there are no ST segment changes. Computer reads as borderline ST elevation in the lateral leads, I disagree. Intervals within normal limits.) - Labs Labs: Laboratory Tests 10/25/19 10/25/19 10/25/19 04:42 04:42 04:42 WBC 5.8 RBC 2.43 L Hgb 6.6 L* Hct 22.0 L MCV 90.5 MCH 27.2 MCHC 30.0 L Plt Count 192 MPV 10.1 Neut # (Auto) 4.2 Lymph # (Auto) 1.4 L Morgan # (Auto) 0.2 Eos # (Auto) 0.1 Baso # (Auto) 0.0 Absolute Nucleated RBC 0.00 Nucleated RBC % 0.0 Manual Slide Review Indicated Platelet Estimate NORMAL (130-450,000) RBC Morph Micro Appear 1+ OVALOCYTES PT 15.9 H INR 1.4 H Sodium 133 L Potassium 4.5 Chloride 94 L Carbon Dioxide 28 Anion Gap 11.0 BUN 41 H Creatinine 1.2 Estimated GFR (MDRD) 60 L Glucose 237 H Calcium 8.3 L Total Bilirubin 0.5 AST 19 ALT 10 Alkaline Phosphatase 33 L Troponin I High Sens B-Natriuretic Peptide Total Protein 5.7 L Albumin 2.9 L Globulin 2.8 Albumin/Globulin Ratio 1.0 Lipase 22 Blood Type Blood Type Recheck Antibody Screen Crossmatch IS Only 10/25/19 10/25/19 10/25/19 04:42 04:42 04:42 WBC RBC Hgb Hct MCV MCH MCHC Plt Count MPV Neut # (Auto) Lymph # (Auto) Morgan # (Auto) Eos # (Auto) Baso # (Auto) Absolute Nucleated RBC Nucleated RBC % Manual Slide Review Platelet Estimate RBC Morph Micro Appear PT INR Sodium Potassium Chloride Carbon Dioxide Anion Gap BUN Creatinine Estimated GFR (MDRD) Glucose Calcium Total Bilirubin AST ALT Alkaline Phosphatase Troponin I High Sens 7.0 B-Natriuretic Peptide 29 Total Protein Albumin Globulin Albumin/Globulin Ratio Lipase Blood Type Blood Type Recheck O POSITIVE Antibody Screen Crossmatch IS Only 10/25/19 05:10 WBC RBC Hgb Hct MCV MCH MCHC Plt Count MPV Neut # (Auto) Lymph # (Auto) Morgan # (Auto) Eos # (Auto) Baso # (Auto) Absolute Nucleated RBC Nucleated RBC % Manual Slide Review Platelet Estimate RBC Morph Micro Appear PT INR Sodium Potassium Chloride Carbon Dioxide Anion Gap BUN Creatinine Estimated GFR (MDRD) Glucose Calcium Total Bilirubin AST ALT Alkaline Phosphatase Troponin I High Sens B-Natriuretic Peptide Total Protein Albumin Globulin Albumin/Globulin Ratio Lipase Blood Type O POSITIVE Blood Type Recheck Antibody Screen NEGATIVE Crossmatch IS Only See Detail - Rads (name of study) CXR Radiology: Other (Left hilar enlargement with decreased right basilar opacities) CT abd/pelvis Radiology: Other (Multiple renal cysts and a new cystic structure in the right lobe of the liver, 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 ) CT chest angio Radiology: Other PD MEDICAL DECISION MAKING - ED course Complexity details: considered differential (PE, pneumonia, pneumothorax, ACS, dysrhythmia, pleural effusion, pericardial effusion, asthma, heart failure, Anemia, GI bleed, AAA complication) ED course: On arrival patient is tachycardic, he feels that he is breathing well and calmly when he is on a nonrebreather. IV was inserted labs were drawn, patient was placed in the monitor. EKG shows no signs of ischemia arrhythmia, shows sinus tachycardia, and his troponin is negative, making ACS highly unlikely. Chest x- ray shows no pneumothorax or other obvious acute cardiopulmonary abnormality. Labs are notable for hemoglobin of 6.6, which is an approximate three-point drop from his most recent labs. This in the setting of his bloody stool was concerning for symptomatic anemia. Because of his history of aortic repair as well as his abdominal pain, and his shortness of breath and history of cancer, CT PE study as well as CT abdomen were obtained, this shows no PE, no new focal consolidation or acute pulmonary pathology, no pericardial effusion. It also does not show any endograft leak. 2 units of blood are ordered and 1 unit was transfused. At this time I feel that patient has symptomatic anemia in the setting of relatively low respiratory reserve given his lung cancer and rib fractures, this combination of factors likely led to his acute worsening. On a non-rebreather he has remained comfortable. He was admitted to the hospital for further evaluation and work-up. Departure - Departure Disposition: 66 [facility] DC/Xfer Clinical Impression: Symptomatic anemia Condition: Stable
[2019-10-25 04:55] LABS: BASOPHILS % (AUTO) 0.3 %; EOSINOPHILS # (AUTO) 0.1 10^3/uL (0.0-0.7); EOSINOPHILS % (AUTO) 0.9 %; LYMPHOCYTES # (AUTO) 1.4 10^3/uL (1.5-3.5); LYMPHOCYTES % (AUTO) 23.4 %; MEAN CORPUSCULAR HEMOGLOBIN 27.2 pg (27.0-31.0); MEAN CORPUSCULAR VOLUME 90.5 fL (80.0-94.0); MEAN PLATELET VOLUME 10.1 fL (7.4-11.4); MONOCYTES # (AUTO) 0.2 10^3/uL (0.0-1.0); MONOCYTES % (AUTO) 3.3 %; NEUTROPHILS # (AUTO) 4.2 10^3/uL (1.5-6.6); NEUTROPHILS % (AUTO) 71.6 %; PLT - PLATELET COUNT 192 10^3/uL (130-450); RED BLOOD COUNT 2.43 10^6/uL (4.70-6.10); WHITE BLOOD COUNT 5.8 x10^3/uL (4.8-10.8)
[2019-10-25 04:58] LABS: INR 1.4 (0.8-1.2); PT - PROTHROMBIN TIME 15.9 secs (9.9-12.6)
[2019-10-25 05:00] LABS: HGB - HEMOGLOBIN 6.6 g/dL (14.0-18.0)
[2019-10-25 05:01] LABS: ALBUMIN 2.9 g/dL (3.2-5.5); BILIRUBIN,TOTAL 0.5 mg/dL (0.2-1.0); CALCIUM 8.3 mg/dL (8.5-10.3); CREATININE 1.2 mg/dL (0.6-1.2); TOTAL PROTEIN 5.7 g/dL (6.7-8.2)
--- NOTE | 2019-10-25 05:23 | XRAY Report ---
Reason: Chest Pain Procedure Date: 10/25/2019 Accession Number: [id number] / [id number] Procedure: XR - Chest 1 View X-Ray CPT Code: 46306 Final Report FULL RESULT: EXAM: CHEST RADIOGRAPHY EXAM DATE: 10/25/2019 04:47 AM. CLINICAL HISTORY: Chest Pain. COMPARISON: CHEST 1 VIEW 10/08/2019 8:50 PM. TECHNIQUE: 1 view. FINDINGS: Lungs/Pleura: Decreased right basilar opacities. No focal consolidation, pleural effusion, or pneumothorax. Mediastinum: Left hilar enlargement. Normal heart size. Other: The right internal jugular approach port catheter tip overlies the cavoatrial junction. IMPRESSION: Left hilar enlargement. Decreased right basilar opacities. RADIA
[2019-10-25 05:32] LABS: PLATELET ESTIMATE, MANUAL NORMAL (130-450,000) (NORMAL)
[2019-10-25] MEDS ORDERED: IOVERSOL 320 100 ML VIAL IVP ONE ×2 (06:20→07:01)
[2019-10-25] MEDS ORDERED: MORPHINE 2 MG/ML CARPUJECT IVP STA (07:46)
--- NOTE | 2019-10-25 08:25 | CT Report ---
Reason: Shortness of breath, abdominal pain, blood in stol Procedure Date: 10/25/2019 Accession Number: [id number] / [id number] Procedure: CT - Abdomen/Pelvis W CPT Code: Final Report FULL RESULT: EXAM: CT ABDOMEN AND PELVIS EXAM DATE: 10/25/2019 07:03 AM. CLINICAL HISTORY: PE study with abd run off please. COMPARISONS: CHEST W/ 05/17/2019 10:57 AM ABDOMEN/PELVIS W/ 10/25/2019 6:05 AM ABDOMEN/PELVIS W/WO 05/07/2014 1:27 PM. TECHNIQUE: Routine helical CT imaging was performed through the abdomen and pelvis. IV contrast: 80 mL Optiray 320. Enteric contrast: No. Reconstructions: Coronal and sagittal. In accordance with CT protocol optimization, one or more of the following dose reduction techniques were utilized for this exam: automated exposure control, adjustment of mA and/or KV based on patient size, or use of iterative reconstructive technique. FINDINGS: Lung Bases: Unremarkable. Liver: There is an ovoid hypodensity in the posterior inferior aspect of the right lobe of the liver measuring 2.4 cm and 34 HU (series 8, image 31). Gallbladder/Bile Ducts: Gallbladder is absent. Spleen: Normal. Pancreas: The pancreas is atrophic with multiple calcifications in the head of the pancreas Adrenal Glands: Normal. Kidneys: Multiple cystic structures in the right and left kidneys measuring up to 5.7 cm and 16 HU on the left 3.1 cm and 16 HU on the right. Multiple nonobstructing stones in the right kidney measuring up to 4 mm and left kidney measuring up to 3 mm. No hydronephrosis. Peritoneal Cavity/Bowel: Normal. No free fluid, free air or adenopathy. No masses or acute inflammatory process. The appendix is well visualized and normal. Pelvic Organs: Normal. The bladder and visualized pelvic organs are within normal limits. 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 The aneurysmal sac measures 5.7 x 5.0 cm, previously 4.7 x 4.5 cm on 05/15/2014. Bones: Multiple right-sided rib fractures. Please see separate chest CT report for details. Other: None. IMPRESSION: 1. There is a new ovoid hypodense structure in the posterior inferior aspect of the right lobe of the liver measuring 2.4 cm and 34 HU which does not meet imaging criteria for a simple cyst but may represent a proteinaceous cyst. Other etiologies not entirely excluded. This can be further assessed with a dedicated liver ultrasound to ensure that this is a simple cystic structure. 2. Multiple renal cysts redemonstrated, as described above. Multiple nonobstructing renal stones bilaterally. No hydronephrosis. 3. 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 The aneurysmal sac measures up to 5.7 x 5.0 cm, previously 4.7 x 4.5 cm on 05/15/2014. 4. Multiple right-sided rib fractures described in detail in the chest CT report. 5. Please see separate chest CT report from today for supradiaphragmatic findings. RADIA
--- NOTE | 2019-10-25 08:25 | CT Report ---
Reason: PE study with abd run off please Procedure Date: 10/25/2019 Accession Number: [id number] / [id number] Procedure: CT - ANGIO CHEST W/WO CPT Code: Final Report FULL RESULT: EXAM: CT ANGIOGRAM CHEST EXAM DATE: 10/25/2019 07:03 AM. CLINICAL HISTORY: Chest pain with history of lung cancer. Recent fall with rib fractures and pneumothorax. Status post tube thoracotomy and hospitalization. COMPARISON: CHEST W/ 05/17/2019 10:57 AM. TECHNIQUE: Routine helical imaging was performed through the chest in the pulmonary arterial phase. IV Contrast: 80 mL Optiray 320. Reconstructions: Coronal 3-D MIP reconstructions.Sagittal and coronal. In accordance with CT protocol optimization, one or more of the following dose reduction techniques were utilized for this exam: automated exposure control, adjustment of mA and/or KV based on patient size, or use of iterative reconstructive technique. FINDINGS: Pulmonary Arteries: Diagnostic quality: Adequate through the segmental arteries. No evidence for acute or chronic pulmonary emboli. RV/LV is within normal limits. There is no interventricular septal bowing. There is no reflux of contrast material in the IVC. Lungs/Pleura: There is a 6.1 x 5.2 cm, previously 8.3 x 8.1 cm, mass along the anterior medial aspect of left upper lobe (series 4, image 65) which contacts the left lateral aspect of the ascending thoracic aorta and proximal aortic arch and main pulmonary artery and left pulmonary artery. This produces significant mass-effect on the pulmonary bronchi supplying the left upper lobe and pulmonary artery supplying the left upper lobe. Small right-sided pleural effusion. Atelectatic changes in the right lung base posteriorly. Mild underlying emphysematous changes in the upper lobes. Mediastinum: Normal. No cardiac enlargement or adenopathy. Thoracic Aorta: Unremarkable. Upper Abdomen: Unremarkable. Other: Displaced fractures of the right seventh, eighth, ninth and 10th rib and nondisplaced fracture of the right 12th rib. In addition, the eighth, ninth, 10th and 11th ribs are fractured posterior medially. Flail chest? IMPRESSION: 1. No pulmonary emboli. 2. There is a 6.1 x 5.2 cm, previously 8.3 x 8.1 cm, mass along the anterior medial aspect of left upper lobe. 3. No new focal consolidation or new suspicious pulmonary masses. 4. Small right-sided pleural effusion with atelectatic changes in the right lung base. 5. Please see separate abdomen and pelvis CT report from today for subdiaphragmatic findings. 6. Displaced fractures of the right seventh, eighth, ninth and 10th rib and nondisplaced fracture of the right 12th rib. In addition, the eighth, ninth, 10th and 11th ribs are fractured posterior medially. Flail chest? RADIA
[2019-10-25] MEDS ORDERED: MORPHINE 2 MG/ML CARPUJECT IVP PRN (08:44)
[2019-10-25] MEDS ORDERED: ONDANSETRON ODT 4 MG TABLET TL PRN (08:44)
[2019-10-25] MEDS ORDERED: PROCHLORPERAZINE 10 MG/2 ML VIAL IVP PRN (08:44)
--- NOTE | 2019-10-25 08:50 | HISTORY & PHYSICAL EXAMINATION ---
Chief Complaint - Chief Complaint Chief Complaint: Shortness of breath History of Present Illness - Admitted From Admitted From:: Emergency Departement - History Obtained From Records Reviewed: Yes History obtained from: Patient Exam Limitations: None - History of Present Illness HPI Comment/Other: Patient is a very pleasant 74-year-old gentleman with a past medical history of diabetes mellitus type 2, hyperlipidemia, Coronary artery disease, peripheral vascular disease, History of tobacco abuse, history of abdominal aortic aneurysm status post repair and unfortunate diagnosis of metastatic lung cancer which was made in May 2019 with metastasis to his liver currently undergoing chemotherapy. The patient was recently seen here at [facility] on 10/08/2019 in the emergency department as he had had a fall. Due to the fall the patient suffered a moderate right pneumothorax with fractures of the lateral right seventh through 11th ribs. Patient had a chest tube placed in the emergency department and was sent to [facility] for this unfortunate trauma. The patient was hospitalized there until 10/13/2019 at which point he was discharged home. Patient states that when he returned home he felt okay. He states he was still suffering from some mild shortness of breath but was using an incentive spirometer and appeared to be improving. He states that on 10/18/2019 he received a dose of chemotherapy. He states that he has a 4 drug regimen and gets his chemotherapy at [facility] in [place]. The patient states that initially after the chemo he was feeling pretty good for abo ut 2 days. He states that on 10/21/2019 he began noticing increasing fatigue which is normal after chemotherapy and some shortness of breath. He states that shortness of breath continued to progress over the next 4 days and yesterday he states that he could not breathe. He became so short of breath that his called EMS and patient was brought to the emergency department. The patient denies any cough, fevers or chills. The patient denies any black or bloody stools but according to EMS the patient's stool was bloody when they picked him up at his home. The patient denies any chest pain. He does state he has had very poor appetite and poor oral intake for the last week. He denies any nausea or vomiting. The patient denies any diarrhea. The patient denies any urinary urgency or frequency. Patient denies any dysuria. The patient denies any focal neurologic deficits. On presentation to the emergency department the patient was in significant respiratory distress. He was tachycardic with a heart rate of 111, tachypneic with respiratory rate of 26 and was placed on a nonrebreather for comfort. The patient was in a tripod position and had increased work of breathing. Routine lab work was done in the emergency department which revealed the patient had a hemoglobin of 6.6 which was down from a baseline of 9.2. The patient's lab work also revealed that he was hyponatremic with a sodium of 133, hyperglycemic with a blood glucose of 237 and his creatinine was slightly up from his baseline of 0.8 up to 1.2 with a elevated BUN of 41. The patient did admit to some lower abdominal pain when he was in the emergency department therefore he did undergo a CT of his abdomen and pelvis this revealed a new ovoid hypodense structure in the posterior inferior aspect of the right lower lobe of the liver measuring 2.4 cm, there was also multiple renal cysts, nonobstructing renal stones and findings consistent with endograft repair of an infrarenal abdominal aortic aneurysm. Given his presentation with respiratory failure the patient also underwent a CT angiogram of his lungs to rule out a PE. There was no finding of PE but there was finding of 6.1 x 5.2 cm mass which had decreased in size from previous in the left upper lobe. There was no focal consolidation or suspicion of pneumonia. The patient did have displaced fractures of the right seventh, eighth, ninth and 10th ribs and a nondisplaced fracture of the 12th rib. The patient was admitted with symptomatic anemia and concern for possible GI bleed. Patient was transfused 1 unit of packed RBCs in the emergency department. History - Past Medical History Cardiovascular: reports: High cholesterol, Coronary artery disease, Peripheral Vascular Disease, Other Respiratory: reports: None Neuro: reports: Peripheral neuropathy Endocrine/Autoimmune: reports: Type 2 diabetes GI: reports: Diverticulitis : reports: Kidney stones HEENT: reports: None Psych: reports: None Musculoskeletal: reports: Osteoarthritis Derm: reports: None MRSA Hx?: No - Past Surgical History General: reports: Cholecystectomy, Colonoscopy - Family & Social History Family History: Mother: , CAD, Father: , CAD, Brother: , Renal Disease/Failure Living arrangement: At home Living Situation: With spouse/s.o. Social History Notes: Patient lives with his in [place], [place]. Patient is a former smoker smoked just less than 1 pack a day for 30 to 35 years. He occasionally drinks alcohol but is not a heavy drinker. He denies any illicit drug use. - Substance History Use: Uses substance without health or social issues: NONE Abuse: Recurrent use of substance despite neg consequences: NONE - POLST Patient has POLST: No POLST Status: Full Code Meds/Allgy - Home Medications Home Medications: Ambulatory Orders Medication Instructions Recorded Confirmed Aspirin [Aspir 81] 81 mg PO DAILY 09/01/15 10/25/19 Cholecalciferol (Vitamin D3) 5,000 unit PO DAILY 09/01/15 10/25/19 [Vitamin D] Cinnamon Bark [Cinnamon] 1,700 mg PO DAILY 09/01/15 10/25/19 Fenofibrate Nanocrystallized 145 mg PO DAILY 09/01/15 10/25/19 [Tricor] Multivit-Mins/Iron/Folic/Lycop 1 tab PO DAILY 09/01/15 10/25/19 [Centrum Men's Tablet] Niacin [Niacin ER] 500 mg PO DAILY 09/01/15 10/25/19 Pioglitazone HCl [Actos] 45 mg PO DAILY 09/01/15 10/25/19 Ramipril 10 mg PO BID 09/01/15 10/25/19 Rosuvastatin Calcium [Crestor] 20 mg PO DAILY 09/01/15 10/25/19 oxyCODONE [Roxicodone] 5 mg PO QID PRN 10/25/19 10/25/19 - Allergies Allergies/Adverse Reactions: Allergies Allergy/AdvReac Type Severity Reaction Status Date / Time No Known Drug Allergies Allergy Verified 10/25/19 05:03 Review of Systems - Other Findings Other Findings: A comprehensive review of systems was performed the pertinent positives and negatives are stated above in the HPI and the remainder of the review of systems is negative. Prior Level of Functionality: LIves at home with his and is independent Exam - Vital Signs Reviewed Vital Signs: Yes Vital Signs: Vital Signs x48h Temp Pulse Resp BP Pulse Ox 10/25/19 07:28 90 13 143/88 H 100 10/25/19 07:18 36.9 C 95 16 143/88 H 10/25/19 07:07 37.1 C 96 14 120/100 H 10/25/19 07:02 36.9 C 95 14 119/104 H 10/25/19 06:21 98 18 135/86 H 100 10/25/19 05:20 103 H 22 125/87 H 98 10/25/19 04:30 36.3 C L 111 H 26 H 120/81 H 100 - Physical Exam General Appearance: positive: Alert, Other (No longer in any distress, appears very thin and chronically ill-appearing) Eyes Bilateral: positive: Normal inspection, PERRL, EOMI, No lid inflammation, Conjunctivae nml, No scleral icterus ENT: positive: ENT inspection nml, Pharynx nml, Dry mucous membranes. negative: Purulent nasal drainage, Pharyngeal erythema, Oral lesions Neck: positive: Nml inspection, Thyroid nml, No JVD, Trachea midline. negative: Lymphadenopathy (R), Lymphadenopathy (L), Stiff neck Respiratory: positive: Chest non-tender, Other (Decreased breath sounds at the bases, coarse sounds bilaterally) Cardiovascular: positive: Regular rate & rhythm, No murmur, No gallop Peripheral Pulses: positive: 2+ Abdomen: positive: No organomegaly, Nml bowel sounds, No distention, Other (Mild tenderness in the lower abdomen). negative: Guarding, Rebound, Hepatomegaly Rectal: positive: Stool - heme POS Back: positive: Nml inspection. negative: CVA tenderness (R), CVA tenderness (L) Skin: positive: No rash, Warm, Dry, Pallor. negative: Cyanosis, Skin rash Extremities: positive: Non-tender, Full ROM, Nml appearance, No pedal edema Neurologic/Psychiatric: positive: Oriented x3, CN's nml (2-12), Motor nml, Sensation nml Conclusion/Plan - Problem List (1) Acute respiratory failure with hypoxia Conclusion/Plan: Likely multifactorial as the patient recently had multiple rib fractures with flail chest and pneumothorax which has been treated effectively but he likely continues to have some residual symptoms, with history of metastatic lung cancer which is being treated effectively with chemotherapy all in the setting of an acute anemia with hemoglobin down to 6.6 in the setting of getting chemotherapy. On presentation to the emergency department the patient was tachypneic, in tripod position and had significant respiratory distress. He had to be placed on a nonrebreather. Patient seen to have significant improvement after receiving just 1 unit of packed RBCs. He is now on room air and his respiratory failure appears to be improving. (2) Anemia Conclusion/Plan: Likely the patient's anemia secondary to chemotherapy. Patient had chemotherapy session about 1 week ago and hemoglobin dropped to 6.6. Patient was transfused 1 unit in the emergency department and will receive 1 more unit of packed RBCs on admission. With first unit of packed RBCs patient's hypoxia has resolved and patient is no longer having respiratory distress. The patient's stool guaiac was positive and patient had bright red blood per rectum per EMS. Patient does not report any recent black or bloody stools that he noticed at home. Patient could be having GI bleed. Continue to monitor hemoglobin Qualifiers: Anemia type: unspecified type Qualified Code(s): D64.9 - Anemia, unspecified (3) GI bleed Conclusion/Plan: Patient presented with symptomatic anemia Hemoglobin dropped from 9 down to 6.6 Patient is hemodynamically stable Although patient had positive stool guaiac and bloody stools according to EMS he has not had any further bloody stools I spoke with general surgery and they would not want to do EGD and colonoscopy in this patient with metastatic lung cancer unless absolutely necessary. We will monitor the patient for further bleeding if patient's bleeding is controlled and his hemoglobin remained stable then we will not consult general surgery for EGD or colonoscopy however if the patient has continued bleeding then he may benefit from scope to find the source and stop bleeding. For now patient will be placed on Protonix IV twice daily We will monitor H&H every 6 Transfuse for hemoglobin less than 7 Monitor for hemodynamic instability Avoid NSAIDs or anticoagulation Qualifiers: GI bleed type/associated pathology: unspecified gastrointestinal hemorrhage type Qualified Code(s): K92.2 - Gastrointestinal hemorrhage, unspecified (4) Metastatic lung carcinoma Conclusion/Plan: Patient has a left upper lobe mass which is currently 6.1 x 5.2 cm shrunk from 8.3 x 8.1 cm. He also has metastasis to his liver. Patient is undergoing chemotherapy as an outpatient. Last chemotherapy session was 1 week ago Treat for side effects of chemotherapy including nausea and vomiting. Cancer is likely contributing to the patient shortness of breath however it is improved after his transfusion. Qualifiers: Laterality: left Qualified Code(s): C78.02 - Secondary malignant neoplasm of left lung (5) Diabetes mellitus with hyperglycemia Conclusion/Plan: Patient has history of diabetes on presentation is hyperglycemic We will place the patient on sliding scale insulin while he is hospitalized Patient will placed on diabetic diet We will monitor blood glucose AC at bedtime Hold Actos Qualifiers: Diabetes mellitus type: type 2 Diabetes mellitus nursing home insulin use: without termite exterminator helper use Qualified Code(s): E11.65 - Type 2 diabetes mellitus with hyperglycemia (6) Hyperlipidemia Conclusion/Plan: Continue TriCor and Crestor Qualifiers: Hyperlipidemia type: unspecified Qualified Code(s): E78.5 - Hyperlipidemia, unspecified (7) Ribs, multiple fractures Conclusion/Plan: Patient has displaced fractures of the right seventh, eighth, ninth and 10th ribs and nondisplaced fracture of the 12th rib. Patient appears to have a flail chest. Patient had previous pneumothorax and required chest tube at [facility] just 2 weeks ago due to fall which caused the above rib fractures. Treat with incentive spirometer Monitor Qualifiers: Encounter type: subsequent encounter Fracture type: closed Laterality: right Qualified Code(s): S22.41XA - Multiple fractures of ribs, right side, initial encounter for closed fracture (8) Hypertension Conclusion/Plan: Hold antihypertensives given possible GI bleed Qualifiers: Hypertension type: essential hypertension Qualified Code(s): I10 - Essential (primary) hypertension - Lab Results Lab results reviewed: Yes Fish Bones: 10/25/19 09:37 10/25/19 04:42 Other Lab Results: Laboratory Tests 10/25/19 10/25/19 10/25/19 04:42 04:42 04:42 WBC 5.8 RBC 2.43 L Hgb 6.6 L* Hct 22.0 L MCV 90.5 MCH 27.2 MCHC 30.0 L RDW Plt Count 192 MPV 10.1 Neut # (Auto) 4.2 Lymph # (Auto) 1.4 L Stanton # (Auto) 0.2 Eos # (Auto) 0.1 Baso # (Auto) 0.0 Absolute Nucleated RBC 0.00 Nucleated RBC % 0.0 Manual Slide Review Indicated Platelet Estimate NORMAL (130-450,000) Platelet Morphology RBC Morph Micro Appear 1+ OVALOCYTES PT 15.9 H INR 1.4 H Sodium 133 L Potassium 4.5 Chloride 94 L Carbon Dioxide 28 Anion Gap 11.0 BUN 41 H Creatinine 1.2 Estimated GFR (MDRD) 60 L Glucose 237 H Calcium 8.3 L Total Bilirubin 0.5 AST 19 ALT 10 Alkaline Phosphatase 33 L Troponin I High Sens B-Natriuretic Peptide Total Protein 5.7 L Albumin 2.9 L Globulin 2.8 Albumin/Globulin Ratio 1.0 Lipase 22 Blood Type Blood Type Recheck Antibody Screen Crossmatch IS Only 10/25/19 10/25/19 10/25/19 04:42 04:42 04:42 WBC RBC Hgb Hct MCV MCH MCHC RDW Plt Count MPV Neut # (Auto) Lymph # (Auto) Stanton # (Auto) Eos # (Auto) Baso # (Auto) Absolute Nucleated RBC Nucleated RBC % Manual Slide Review Platelet Estimate Platelet Morphology RBC Morph Micro Appear PT INR Sodium Potassium Chloride Carbon Dioxide Anion Gap BUN Creatinine Estimated GFR (MDRD) Glucose Calcium Total Bilirubin AST ALT Alkaline Phosphatase Troponin I High Sens 7.0 B-Natriuretic Peptide 29 Total Protein Albumin Globulin Albumin/Globulin Ratio Lipase Blood Type Blood Type Recheck O POSITIVE Antibody Screen Crossmatch IS Only 10/25/19 10/25/19 05:10 09:37 WBC 4.7 L RBC 2.81 L Hgb 7.9 L Hct 24.9 L MCV 88.6 MCH 28.1 MCHC 31.7 L RDW 25.2 H Plt Count 137 MPV 9.6 Neut # (Auto) 3.0 Lymph # (Auto) 1.3 L Stanton # (Auto) 0.3 Eos # (Auto) 0.0 Baso # (Auto) 0.0 Absolute Nucleated RBC 0.00 Nucleated RBC % 0.0 Manual Slide Review Indicated Platelet Estimate NORMAL (130-450,000) Platelet Morphology NORMAL APPEARANCE RBC Morph Micro Appear 2+ POIKILOCYTOSIS PT INR Sodium Potassium Chloride Carbon Dioxide Anion Gap BUN Creatinine Estimated GFR (MDRD) Glucose Calcium Total Bilirubin AST ALT Alkaline Phosphatase Troponin I High Sens B-Natriuretic Peptide Total Protein Albumin Globulin Albumin/Globulin Ratio Lipase Blood Type O POSITIVE Blood Type Recheck Antibody Screen NEGATIVE Crossmatch IS Only See Detail - Diagnostic Imaging Results Diagnostic Imaging Results: positive: Final report reviewed Diagnostic Imaging Results Comments: EXAM: CT ANGIOGRAM CHEST EXAM DATE: 10/25/2019 07:03 AM. CLINICAL HISTORY: Chest pain with history of lung cancer. Recent fall with rib fractures and pneumothorax. Status post tube thoracotomy and hospitalization. COMPARISON: CHEST W/ 05/17/2019 10:57 AM. TECHNIQUE: Routine helical imaging was performed through the chest in the pulmonary arterial phase. IV Contrast: 80 mL Optiray 320. Reconstructions: Coronal 3-D MIP reconstructions.Sagittal and coronal. In accordance with CT protocol optimization, one or more of the following dose reduction techniques were utilized for this exam: automated exposure control, adjustment of mA and/or KV based on patient size, or use of iterative reconstructive technique. FINDINGS: Pulmonary Arteries: Diagnostic quality: Adequate through the segmental arteries. No evidence for acute or chronic pulmonary emboli. RV/LV is within normal limits. There is no interventricular septal bowing. There is no reflux of contrast material in the IVC. Lungs/Pleura: There is a 6.1 x 5.2 cm, previously 8.3 x 8.1 cm, mass along the anterior medial aspect of left upper lobe (series 4, image 65) which contacts the left lateral aspect of the ascending thoracic aorta and proximal aortic arch and main pulmonary artery and left pulmonary artery. This produces significant mass-effect on the pulmonary bronchi supplying the left upper lobe and pulmonary artery supplying the left upper lobe. Small right-sided pleural effusion. Atelectatic changes in the right lung base posteriorly. Mild underlying emphysematous changes in the upper lobes. Mediastinum: Normal. No cardiac enlargement or adenopathy. Thoracic Aorta: Unremarkable. Upper Abdomen: Unremarkable. Other: Displaced fractures of the right seventh, eighth, ninth and 10th rib and nondisplaced fracture of the right 12th rib. In addition, the eighth, ninth, 10th and 11th ribs are fractured posterior medially. Flail chest? IMPRESSION: 1. No pulmonary emboli. 2. There is a 6.1 x 5.2 cm, previously 8.3 x 8.1 cm, mass along the anterior medial aspect of left upper lobe. 3. No new focal consolidation or new suspicious pulmonary masses. 4. Small right-sided pleural effusion with atelectatic changes in the right lung base. 5. Please see separate abdomen and pelvis CT report from today for subdiaphragmatic findings. 6. Displaced fractures of the right seventh, eighth, ninth and 10th rib and nondisplaced fracture of the right 12th rib. In addition, the eighth, ninth, 10th and 11th ribs are fractured posterior medially. Flail chest? EXAM: CT ABDOMEN AND PELVIS EXAM DATE: 10/25/2019 07:03 AM. CLINICAL HISTORY: PE study with abd run off please. COMPARISONS: CHEST W/ 05/17/2019 10:57 AM ABDOMEN/PELVIS W10/25/2019 6:05 AM ABDOMEN/PELVIS W/WO 05/07/2014 1:27 PM. TECHNIQUE: Routine helical CT imaging was performed through the abdomen and pelvis. IV contrast: 80 mL Optiray 320. Enteric contrast: No. Reconstructions: Coronal and sagittal. In accordance with CT protocol optimization, one or more of the following dose reduction techniques were utilized for this exam: automated exposure control, adjustment of mA and/or KV based on patient size, or use of iterative reconstructive technique. FINDINGS: Lung Bases: Unremarkable. Liver: There is an ovoid hypodensity in the posterior inferior aspect of the right lobe of the liver measuring 2.4 cm and 34 HU (series 8, image 31). Gallbladder/Bile Ducts: Gallbladder is absent. Spleen: Normal. Pancreas: The pancreas is atrophic with multiple calcifications in the head of the pancreas Adrenal Glands: Normal. Kidneys: Multiple cystic structures in the right and left kidneys measuring up to 5.7 cm and 16 HU on the left 3.1 cm and 16 HU on the right. Multiple nonobstructing stones in the right kidney measuring up to 4 mm and left kidney measuring up to 3 mm. No hydronephrosis. Peritoneal Cavity/Bowel: Normal. No free fluid, free air or adenopathy. No masses or acute inflammatory process. The appendix is well visualized and normal. Pelvic Organs: Normal. The bladder and visualized pelvic organs are within normal limits. 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 The aneurysmal sac measures 5.7 x 5.0 cm, previously 4.7 x 4.5 cm on 05/15/2014. Bones: Multiple right-sided rib fractures. Please see separate chest CT report for details. Other: None. IMPRESSION: 1. There is a new ovoid hypodense structure in the posterior inferior aspect of the right lobe of the liver measuring 2.4 cm and 34 HU which does not meet imaging criteria for a simple cyst but may represent a proteinaceous cyst. Other etiologies not entirely excluded. This can be further assessed with a dedicated liver ultrasound to ensure that this is a simple cystic structure. 2. Multiple renal cysts redemonstrated, as described above. Multiple nonobstructing renal stones bilaterally. No hydronephrosis. 3. 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 The aneurysmal sac measures up to 5.7 x 5.0 cm, previously 4.7 x 4.5 cm on 05/15/2014. 4. Multiple right-sided rib fractures described in detail in the chest CT report. 5. Please see separate chest CT report from today for supradiaphragmatic findings. EXAM: CHEST RADIOGRAPHY EXAM DATE: 10/25/2019 04:47 AM. CLINICAL HISTORY: Chest Pain. COMPARISON: CHEST 1 VIEW 10/08/2019 8:50 PM. TECHNIQUE: 1 view. FINDINGS: Lungs/Pleura: Decreased right basilar opacities. No focal consolidation, pleural effusion, or pneumothorax. Mediastinum: Left hilar enlargement. Normal heart size. Other: The right internal jugular approach port catheter tip overlies the cavoatrial junction. IMPRESSION: Left hilar enlargement. Decreased right basilar opacities. - EKG Results EKG Interpreted Independently: Yes Core Measures - Anticipated LOS I expect patient to be DC'd or transferred within 96 hours.: Yes - DVT/VTE - Prophylaxis VTE/DVT Device ordered at admit?: Yes VTE/DVT Prophylaxis med ordered at admit?: No Not Ordered - Medical Reason: Contraindicated
[2019-10-25 09:44] LABS: BASOPHILS % (AUTO) 0.4 %; EOSINOPHILS % (AUTO) 0.2 %; HGB - HEMOGLOBIN 7.9 g/dL (14.0-18.0); LYMPHOCYTES # (AUTO) 1.3 10^3/uL (1.5-3.5); LYMPHOCYTES % (AUTO) 28.3 %; MEAN CORPUSCULAR HEMOGLOBIN 28.1 pg (27.0-31.0); MEAN CORPUSCULAR HGB CONC 31.7 g/dL (32.0-36.0); MEAN CORPUSCULAR VOLUME 88.6 fL (80.0-94.0); MEAN PLATELET VOLUME 9.6 fL (7.4-11.4); MONOCYTES # (AUTO) 0.3 10^3/uL (0.0-1.0); MONOCYTES % (AUTO) 5.8 %; NEUTROPHILS % (AUTO) 64.7 %; PLT - PLATELET COUNT 137 10^3/uL (130-450); RED BLOOD COUNT 2.81 10^6/uL (4.70-6.10); RED CELL DISTRIBUTION WIDTH 25.2 % (12.0-15.0); WHITE BLOOD COUNT 4.7 x10^3/uL (4.8-10.8)
[2019-10-25 10:30] LABS: PLATELET ESTIMATE, MANUAL NORMAL (130-450,000) (NORMAL); PLATELET MORPHOLOGY NORMAL APPEARANCE (NORMAL)
[2019-10-25] MEDS ORDERED: SODIUM CHLORIDE 0.9% 500 ML ONE (10:30)
[2019-10-25] MEDS: FERROUS GLUCONATE 324 MG TABLET PO SCH (10:36)
[2019-10-25] MEDS: SODIUM CHLORIDE FLUSH 0.9% 10 ML SYRINGE IVP SCH ×2 (10:36→18:10)
[2019-10-25] MEDS: PANTOPRAZOLE 40 MG VIAL IVP SCH ×2 (10:36→21:18)
[2019-10-25] MEDS: oxyCODONE 5 MG TABLET PO PRN ×2 (10:37→18:38)
[2019-10-25] MEDS: CHOLECALCIFEROL 5,000 UNIT CAPSULE PO SCH (10:37)
[2019-10-25] MEDS: MULTIVITAMIN W/MINERALS TABLET PO SCH (10:37)
[2019-10-25] MEDS: NIACIN ER 500 MG TABLET PO SCH (10:38)
[2019-10-25] MEDS: SODIUM CHLORIDE 0.9% 1,000 ML IV SCH ×2 (10:38→21:16)
--- NOTE | 2019-10-25 10:47 | PHARMACY PROGRESS NOTE ---
- Best Possible Medication History Admit Date and Time: 10/25/19 0844 Processed by: Pharmacy Medication History completed: Yes Patient Interview: Pt interview ONLY source As the person ultimately responsible for medication therapy, providers are able to order a medication from an existing home medication list in [facility] via the "Reconcile Routine" prior to Confirmation of that medication by collection support specialist. Such practice is discouraged except when the physician, in their clinical judgment, deems that a medical need exists for a medication without regard to previous use.
[2019-10-25 12:01] LABS: HB2 TOTAL 8.1 g/dL; HEMOGLOBIN A1C 0.36 g/dL; HEMOGLOBIN A1C % 6.2 % (4.6-6.2)
[2019-10-25] MEDS: INSULIN ASPART 300 UNIT/3 ML PEN SUBQ SCH ×3 (12:27→21:18)
[2019-10-25] MEDS: ONDANSETRON 4 MG/2 ML VIAL IVP PRN ×2 (12:29→18:38)
[2019-10-25 14:49] LABS: BASOPHILS % (AUTO) 0.5 %; HGB - HEMOGLOBIN 8.4 g/dL (14.0-18.0); LYMPHOCYTES % (AUTO) 25.6 %; MEAN CORPUSCULAR HGB CONC 32.1 g/dL (32.0-36.0); MEAN CORPUSCULAR VOLUME 87.3 fL (80.0-94.0); MEAN PLATELET VOLUME 10.2 fL (7.4-11.4); MONOCYTES # (AUTO) 0.2 10^3/uL (0.0-1.0); MONOCYTES % (AUTO) 6.1 %; NEUTROPHILS # (AUTO) 2.6 10^3/uL (1.5-6.6); NEUTROPHILS % (AUTO) 66.3 %; PLT - PLATELET COUNT 110 10^3/uL (130-450); RED CELL DISTRIBUTION WIDTH 23.2 % (12.0-15.0); WHITE BLOOD COUNT 3.9 x10^3/uL (4.8-10.8)
[2019-10-25 15:23] LABS: DIFFERENTIAL COMMENT MANUAL=AUTO DIFF; PLATELET ESTIMATE, MANUAL DECREASED (<130,000) (NORMAL); PLATELET MORPHOLOGY NORMAL APPEARANCE (NORMAL)
[2019-10-25 20:44] LABS: BASOPHILS % (AUTO) 0.2 %; EOSINOPHILS # (AUTO) 0.1 10^3/uL (0.0-0.7); EOSINOPHILS % (AUTO) 3.2 %; HGB - HEMOGLOBIN 7.8 g/dL (14.0-18.0); LYMPHOCYTES # (AUTO) 1.2 10^3/uL (1.5-3.5); LYMPHOCYTES % (AUTO) 29.5 %; MEAN CORPUSCULAR HEMOGLOBIN 27.8 pg (27.0-31.0); MEAN CORPUSCULAR HGB CONC 32.1 g/dL (32.0-36.0); MEAN CORPUSCULAR VOLUME 86.5 fL (80.0-94.0); MEAN PLATELET VOLUME 9.6 fL (7.4-11.4); MONOCYTES # (AUTO) 0.3 10^3/uL (0.0-1.0); MONOCYTES % (AUTO) 6.8 %; NEUTROPHILS # (AUTO) 2.5 10^3/uL (1.5-6.6); NEUTROPHILS % (AUTO) 59.8 %; PLT - PLATELET COUNT 109 10^3/uL (130-450); RED BLOOD COUNT 2.81 10^6/uL (4.70-6.10); RED CELL DISTRIBUTION WIDTH 23.5 % (12.0-15.0); WHITE BLOOD COUNT 4.1 x10^3/uL (4.8-10.8)
[2019-10-25 21:09] LABS: PLATELET ESTIMATE, MANUAL DECREASED (<130,000) (NORMAL); PLATELET MORPHOLOGY NORMAL APPEARANCE (NORMAL)
[2019-10-25] MEDS: ATORVASTATIN 40 MG TABLET PO SCH (21:18)
[2019-10-26] MEDS: oxyCODONE 5 MG TABLET PO PRN ×5 (00:51→21:20)
[2019-10-26] MEDS: ONDANSETRON 4 MG/2 ML VIAL IVP PRN ×2 (00:52→07:48)
[2019-10-26] MEDS: SODIUM CHLORIDE FLUSH 0.9% 10 ML SYRINGE IVP SCH ×3 (00:57→16:43)
[2019-10-26 02:57] LABS: BASOPHILS % (AUTO) 0.5 %; EOSINOPHILS # (AUTO) 0.2 10^3/uL (0.0-0.7); EOSINOPHILS % (AUTO) 4.2 %; HGB - HEMOGLOBIN 7.7 g/dL (14.0-18.0); LYMPHOCYTES # (AUTO) 1.1 10^3/uL (1.5-3.5); LYMPHOCYTES % (AUTO) 29.2 %; MEAN CORPUSCULAR HEMOGLOBIN 27.7 pg (27.0-31.0); MEAN CORPUSCULAR HGB CONC 31.6 g/dL (32.0-36.0); MEAN CORPUSCULAR VOLUME 87.8 fL (80.0-94.0); MEAN PLATELET VOLUME 9.5 fL (7.4-11.4); MONOCYTES # (AUTO) 0.3 10^3/uL (0.0-1.0); NEUTROPHILS # (AUTO) 2.3 10^3/uL (1.5-6.6); NEUTROPHILS % (AUTO) 59.1 %; PLT - PLATELET COUNT 105 10^3/uL (130-450); RED BLOOD COUNT 2.78 10^6/uL (4.70-6.10); RED CELL DISTRIBUTION WIDTH 23.5 % (12.0-15.0); WHITE BLOOD COUNT 3.8 x10^3/uL (4.8-10.8)
[2019-10-26 03:06] LABS: INR 1.3 (0.8-1.2); PT - PROTHROMBIN TIME 14.2 secs (9.9-12.6)
[2019-10-26 03:13] LABS: ALBUMIN 2.8 g/dL (3.2-5.5); ALBUMIN/GLOBULIN RATIO 1.1 (1.0-2.2); ALKALINE PHOSPHATASE 31 IU/L (42-121); ALT ALANINE AMINOTRANSFERASE < 10 IU/L (10-60); AST ASPARTATE AMINOTRANSFERASE 14 IU/L (10-42); BILIRUBIN,TOTAL 0.6 mg/dL (0.2-1.0); BUN - BLOOD UREA NITROGEN 27 mg/dL (6-20); CALCIUM 8.2 mg/dL (8.5-10.3); CARBON DIOXIDE - CO2 28 mmol/L (21-32); CHLORIDE 104 mmol/L (101-111); CREATININE 0.6 mg/dL (0.6-1.2); GFR - MDRD 132 (>89); GLUCOSE 97 mg/dL (70-100); SODIUM 138 mmol/L (135-145); TOTAL PROTEIN 5.3 g/dL (6.7-8.2)
[2019-10-26 03:23] LABS: PLATELET ESTIMATE, MANUAL DECREASED (<130,000) (NORMAL); PLATELET MORPHOLOGY NORMAL APPEARANCE (NORMAL)
[2019-10-26] MEDS ORDERED: BENZOCAINE/MENTHOL LOZENGE MM PRN (04:04)
[2019-10-26] MEDS: SODIUM CHLORIDE 0.9% 1,000 ML IV SCH ×2 (06:35→16:42)
[2019-10-26] MEDS: FERROUS GLUCONATE 324 MG TABLET PO SCH (07:41)
[2019-10-26] MEDS: MULTIVITAMIN W/MINERALS TABLET PO SCH (07:41)
[2019-10-26] MEDS: INSULIN ASPART 300 UNIT/3 ML PEN SUBQ SCH ×4 (08:06→21:13)
[2019-10-26 08:52] LABS: BASOPHILS % (AUTO) 0.5 %; EOSINOPHILS # (AUTO) 0.2 10^3/uL (0.0-0.7); HGB - HEMOGLOBIN 8.4 g/dL (14.0-18.0); LYMPHOCYTES # (AUTO) 1.4 10^3/uL (1.5-3.5); LYMPHOCYTES % (AUTO) 32.3 %; MEAN CORPUSCULAR HEMOGLOBIN 27.9 pg (27.0-31.0); MEAN CORPUSCULAR HGB CONC 32.2 g/dL (32.0-36.0); MEAN CORPUSCULAR VOLUME 86.7 fL (80.0-94.0); MEAN PLATELET VOLUME 9.7 fL (7.4-11.4); MONOCYTES # (AUTO) 0.3 10^3/uL (0.0-1.0); MONOCYTES % (AUTO) 7.7 %; NEUTROPHILS # (AUTO) 2.3 10^3/uL (1.5-6.6); NEUTROPHILS % (AUTO) 54.3 %; PLT - PLATELET COUNT 124 10^3/uL (130-450); RED BLOOD COUNT 3.01 10^6/uL (4.70-6.10); RED CELL DISTRIBUTION WIDTH 23.8 % (12.0-15.0); WHITE BLOOD COUNT 4.2 x10^3/uL (4.8-10.8)
[2019-10-26] MEDS: CHOLECALCIFEROL 5,000 UNIT CAPSULE PO SCH (10:52)
[2019-10-26] MEDS: FENOFIBRATE 48 MG TABLET PO SCH (10:52)
[2019-10-26] MEDS: NIACIN ER 500 MG TABLET PO SCH (10:52)
[2019-10-26] MEDS: PANTOPRAZOLE 40 MG VIAL IVP SCH ×2 (10:52→21:13)
--- NOTE | 2019-10-26 15:44 | PROVIDER PROGRESS NOTE ---
Assessment/Plan - Problem List (1) Acute respiratory failure with hypoxia Assessment/Plan: Patient still requiring supplemental O2. Continue to treat underlying pneumonia Will start to increase activity with physical therapy and assess oximetry before discharge (2) Anemia Qualifiers: Anemia type: unspecified type Qualified Code(s): D64.9 - Anemia, unspecified Assessment/Plan: He is required blood transfusion and if the hemoglobin stabilizes, no EGD will be done if possible. Follow CBC daily (3) GI bleed Qualifiers: GI bleed type/associated pathology: unspecified gastrointestinal hemorrhage type Qualified Code(s): K92.2 - Gastrointestinal hemorrhage, unspecified Assessment/Plan: He is get empiric treatment for ulcer disease. Continue to watch CBC daily (4) Metastatic lung carcinoma Qualifiers: Laterality: left Qualified Code(s): C78.02 - Secondary malignant neoplasm of left lung Assessment/Plan: He received chemotherapy recently which was the last 1 according to the patient. A PET scan is planned on November 04 and then if things are "under control" then maintenance therapy is planned (5) Diabetes mellitus Assessment/Plan: Continue with carb controlled diet and SS Insulin (6) Hyperlipidemia Qualifiers: Hyperlipidemia type: unspecified Qualified Code(s): E78.5 - Hyperlipidemia, unspecified Assessment/Plan: Continue his home tx (7) Hypertension Qualifiers: Hypertension type: essential hypertension Qualified Code(s): I10 - Essential (primary) hypertension Assessment/Plan: Home blood pressure meds reordered with hold orders if blood pressure is low (8) Ribs, multiple fractures Qualifiers: Encounter type: subsequent encounter Fracture type: closed Laterality: right Assessment/Plan: This occurred last month for which she required transfer to [facility] and had a chest tube and is stable from this standpoint, during this admission - Current Meds Current Meds: Current Medications Generic Name Dose Route Start Last Admin Trade Name Freq PRN Reason Stop Dose Admin Atorvastatin Calcium 40 mg 10/25/19 21:00 10/25/19 21:18 Lipitor PO 40 mg QPM KHUSHI Administration Cholecalciferol 5,000 unit 10/25/19 10:00 10/26/19 10:52 Vitamin D3 PO 5,000 unit DAILY KHUSHI Administration Fenofibrate 144 mg 10/26/19 09:00 10/26/19 10:52 Tricor PO 144 mg DAILY KHUSHI Administration Ferrous Gluconate 324 mg 10/25/19 10:00 10/26/19 07:41 Fergon PO 324 mg DAILYWM KHUHSI Administration Sodium Chloride 1,000 mls @ 100 mls/hr 10/25/19 09:00 10/26/19 06:35 Normal Saline 0.9% IV 100 mls/hr .Q10H KHUSHI Administration Insulin Aspart 1 - 5 unit 10/25/19 12:00 10/26/19 12:09 Novolog SUBQ Not Given 0800,1200,1700,2100 [facility] Protocol Morphine Sulfate 2 mg 10/25/19 08:44 10/25/19 16:03 Morphine (Carpuject) IVP 2 mg Q2HR PRN Administration Pain 8 to 10 Multivitamins/Minerals 1 tab 10/25/19 09:00 10/26/19 07:41 Theragran M PO 1 tab DAILYWM KHUSHI Administration Niacin 500 mg 10/25/19 09:00 10/26/19 10:52 Niaspan PO 500 mg DAILY KHUSHI Administration Ondansetron HCl 4 mg 10/25/19 08:44 10/26/19 07:48 Zofran Inj IVP 4 mg Q6HR PRN Administration Nausea / Vomiting Oxycodone HCl 5 mg 10/25/19 08:44 10/26/19 12:13 Roxicodone PO 5 mg Q4HR PRN Administration Pain 5 to 7 Pantoprazole Sodium 40 mg 10/25/19 09:00 10/26/19 10:52 Protonix IVP 40 mg BID KHUSHI Administration Sodium Chloride 10 ml 10/25/19 09:00 10/26/19 10:52 Normal Saline Flush 0.9% IVP 10 ml 0100,0900,1700 KHUSHI Administration Throat Lozenges 1 lozenge 10/26/19 04:04 10/26/19 04:12 Cepacol MM 1 lozenge Q2HR PRN Administration Throat pain - Lab Result Fish Bone Diagrams: 10/26/19 15:40 10/26/19 02:50 - Additional Planning My Orders: My Active Orders 10/26/19 10:37 Telemetry- [RC] Q4HR Subjective - Subjective Patient Reports: Feeling Better, Resting Comfortably, No Complaints Objective Vital Signs: Vital Signs - 24 hr 10/25/19 10/25/19 10/25/19 15:58 16:00 20:30 Temperature 36.6 C 36.7 C Heart Rate [ 80 85 83 Brachial] Respiratory 18 18 Rate Blood Pressure 148/87 H 170/81 H 131/70 H [Right Brachial artery] O2 Saturation 93 92 10/26/19 10/26/19 10/26/19 00:00 05:38 08:00 Temperature 36.6 C 36.8 C 36.5 C Heart Rate [ 87 86 87 Brachial] Respiratory 16 16 18 Rate Blood Pressure 148/79 H 164/83 H 152/90 H [Right Brachial artery] O2 Saturation 92 92 96 10/26/19 12:00 Temperature 36.6 C Heart Rate [ 84 Brachial] Respiratory 18 Rate Blood Pressure 149/122 H [Right Brachial artery] O2 Saturation 97 Oxygen O2 Source Room air Oxygen Flow Rate 6 I&O (Last 24 Hrs): Intake and Output Totals x24h 10/24/19 10/25/19 10/26/19 23:59 23:59 23:59 Intake Total 2101 1591.667 Balance 2101 1591.667 General: Alert, Oriented x3 HEENT: Mucous membr. moist/pink Neck: Supple, No JVD Neuro: Alert, Non Focal Cardiovascular: Regular rate Respiratory: No respiratory distress, Breath sounds nml Abdomen: Soft Extremities: No edema - Results Results: Laboratory Results WBC 4.2 x10^3/uL (4.8-10.8) L 10/26/19 08:30 RBC 3.01 10^6/uL (4.70-6.10) L 10/26/19 08:30 Hgb 8.4 g/dL (14.0-18.0) L 10/26/19 08:30 Hct 26.1 % (42.0-52.0) L 10/26/19 08:30 MCV 86.7 fL (80.0-94.0) 10/26/19 08:30 MCH 27.9 pg (27.0-31.0) 10/26/19 08:30 MCHC 32.2 g/dL (32.0-36.0) 10/26/19 08:30 RDW 23.8 % (12.0-15.0) H 10/26/19 08:30 Plt Count 124 10^3/uL (130-450) L 10/26/19 08:30 MPV 9.7 fL (7.4-11.4) 10/26/19 08:30 Neut # (Auto) 2.3 10^3/uL (1.5-6.6) 10/26/19 08:30 Lymph # (Auto) 1.4 10^3/uL (1.5-3.5) L 10/26/19 08:30 [place] # (Auto) 0.3 10^3/uL (0.0-1.0) 10/26/19 08:30 Eos # (Auto) 0.2 10^3/uL (0.0-0.7) 10/26/19 08:30 Baso # (Auto) 0.0 10^3/uL (0.0-0.1) 10/26/19 08:30 Absolute Nucleated RBC 0.00 x10^3/uL 10/26/19 08:30 Band Neuts % (Manual) Not Reportable 10/25/19 14:40 Abnorm Lymph % (Manual) Not Reportable 10/25/19 14:40 Nucleated RBC % 0.0 /100WBC 10/26/19 08:30 Neutrophils # (Manual) Not Reportable 10/25/19 14:40 Lymphocytes # (Manual) Not Reportable 10/25/19 14:40 Monocytes # (Manual) Not Reportable 10/25/19 14:40 Eosinophils # (Manual) Not Reportable 10/25/19 14:40 Basophils # (Manual) Not Reportable 10/25/19 14:40 Differential Comment MANUAL=AUTO DIFF 10/25/19 14:40 Manual Slide Review Indicated 10/26/19 02:50 WBC Morphology NORMAL APPEARANCE (NORMAL) 10/26/19 02:50 Platelet Estimate DECREASED (<130,000) (NORMAL) 10/26/19 02:50 Platelet Morphology NORMAL APPEARANCE (NORMAL) 10/26/19 02:50 RBC Morph Micro Appear 3+ ANISOCYTOSIS (NORMAL) 2+ HYPOCHROMASIA (NORMAL) 2+ POIKILOCYTOSIS (NORMAL) 10/25/19 09:37 RBC Morph Micro Appear 2+ ANISOCYTOSIS (NORMAL) 1+ MACROCYTOSIS (NORMAL) 1+ MICROCYTOSIS (NORMAL) 1+ OVALOCYTES (NORMAL) 1+ SCHISTOCYTES (NORMAL) 10/25/19 14:40 RBC Morph Micro Appear 2+ ANISOCYTOSIS (NORMAL) 1+ MACROCYTOSIS (NORMAL) 1+ MICROCYTOSIS (NORMAL) 1+ OVALOCYTES (NORMAL) 1+ SCHISTOCYTES (NORMAL) 10/25/19 14:40 RBC Morph Micro Appear 2+ ANISOCYTOSIS (NORMAL) 1+ MACROCYTOSIS (NORMAL) 1+ MICROCYTOSIS (NORMAL) 1+ OVALOCYTES (NORMAL) 1+ SCHISTOCYTES (NORMAL) 1 12/26/18 14:40 RBC Morph Micro Appear 2+ ANISOCYTOSIS (NORMAL) 1+ MACROCYTOSIS (NORMAL) 1+ MICROCYTOSIS (NORMAL) 1+ OVALOCYTES (NORMAL) 1+ SCHISTOCYTES (NORMAL) 10/25/19 14:40 RBC Morph Micro Appear 2+ ANISOCYTOSIS (NORMAL) 1+ MACROCYTOSIS (NORMAL) 1+ MICROCYTOSIS (NORMAL) 1+ OVALOCYTES (NORMAL) 1+ SCHISTOCYTES (NORMAL) 10/25/19 14:40 RBC Morph Micro Appear 2+ ANISOCYTOSIS (NORMAL) 1+ MACROCYTOSIS (NORMAL) 1+ MICROCYTOSIS (NORMAL) 2+ HYPOCHROMASIA (NORMAL) 1+ OVALOCYTES (NORMAL) 10/25/19 20:36 RBC Morph Micro Appear 2+ ANISOCYTOSIS (NORMAL) 1+ MACROCYTOSIS (NORMAL) 1+ MICROCYTOSIS (NORMAL) 2+ HYPOCHROMASIA (NORMAL) 1+ OVALOCYTES (NORMAL) 10/25/19 20:36 RBC Morph Micro Appear 2+ ANISOCYTOSIS (NORMAL) 1+ MACROCYTOSIS (NORMAL) 1+ MICROCYTOSIS (NORMAL) 2+ HYPOCHROMASIA (NORMAL) 1+ OVALOCYTES (NORMAL) 10/25/19 20:36 RBC Morph Micro Appear 2+ ANISOCYTOSIS (NORMAL) 1+ MACROCYTOSIS (NORMAL) 1+ MICROCYTOSIS (NORMAL) 2+ HYPOCHROMASIA (NORMAL) 1+ OVALOCYTES (NORMAL) 10/25/19 20:36 RBC Morph Micro Appear 2+ ANISOCYTOSIS (NORMAL) 1+ MACROCYTOSIS (NORMAL) 1+ MICROCYTOSIS (NORMAL) 2+ HYPOCHROMASIA (NORMAL) 1+ OVALOCYTES (NORMAL) 10/25/19 20:36 RBC Morph Micro Appear 2+ ANISOCYTOSIS (NORMAL) 1+ HYPOCHROMASIA (NORMAL) 10/26/19 02:50 RBC Morph Micro Appear 2+ ANISOCYTOSIS (NORMAL) 1+ HYPOCHROMASIA (NORMAL) 10/26/19 02:50 PT 14.2 secs (9.9-12.6) H 10/26/19 02:50 INR 1.3 (0.8-1.2) H 10/26/19 02:50 Sodium 138 mmol/L (135-145) 10/26/19 02:50 Potassium 3.9 mmol/L (3.5-5.0) 10/26/19 02:50 Chloride 104 mmol/L (101-111) 10/26/19 02:50 Carbon Dioxide 28 mmol/L (21-32) 10/26/19 02:50 Anion Gap 6.0 (6-13) 10/26/19 02:50 BUN 27 mg/dL (6-20) H 10/26/19 02:50 Creatinine 0.6 mg/dL (0.6-1.2) 10/26/19 02:50 Estimated GFR (MDRD) 132 (>89) 10/26/19 02:50 Glucose 97 mg/dL (70-100) 10/26/19 02:50 Glycated Hemoglobin 6.2 % (4.6-6.2) 10/25/19 09:43 Estim Average Glucose 131 (70-100) H 10/25/19 09:43 Calcium 8.2 mg/dL (8.5-10.3) L 10/26/19 02:50 Total Bilirubin 0.6 mg/dL (0.2-1.0) 10/26/19 02:50 AST 14 IU/L (10-42) 10/26/19 02:50 ALT < 10 IU/L (10-60) L 10/26/19 02:50 Alkaline Phosphatase 31 IU/L (42-121) L 10/26/19 02:50 Troponin I High Sens 7.0 ng/L (2.3-19.7) 10/25/19 04:42 B-Natriuretic Peptide 29 pg/mL (5-100) 10/25/19 04:42 Total Protein 5.3 g/dL (6.7-8.2) L 10/26/19 02:50 Albumin 2.8 g/dL (3.2-5.5) L 10/26/19 02:50 Globulin 2.5 g/dL (2.1-4.2) 10/26/19 02:50 Albumin/Globulin Ratio 1.1 (1.0-2.2) 10/26/19 02:50 Lipase 22 U/L (22-51) 10/25/19 04:42 Blood Type O POSITIVE 10/25/19 05:10 Blood Type Recheck O POSITIVE 10/25/19 04:42 Antibody Screen NEGATIVE 10/25/19 05:10 Crossmatch IS Only See Detail 10/25/19 05:10 - Procedures Procedures: Procedures EXCISION OF RIGHT KNEE JOINT, PERC ENDO APPROACH (09/03/15)
[2019-10-26 16:28] LABS: BASOPHILS % (AUTO) 0.5 %; EOSINOPHILS # (AUTO) 0.2 10^3/uL (0.0-0.7); EOSINOPHILS % (AUTO) 4.7 %; HGB - HEMOGLOBIN 7.7 g/dL (14.0-18.0); LYMPHOCYTES # (AUTO) 1.5 10^3/uL (1.5-3.5); LYMPHOCYTES % (AUTO) 38.4 %; MEAN CORPUSCULAR HEMOGLOBIN 27.6 pg (27.0-31.0); MEAN CORPUSCULAR HGB CONC 31.2 g/dL (32.0-36.0); MEAN CORPUSCULAR VOLUME 88.5 fL (80.0-94.0); MEAN PLATELET VOLUME 9.9 fL (7.4-11.4); MONOCYTES # (AUTO) 0.3 10^3/uL (0.0-1.0); MONOCYTES % (AUTO) 8.8 %; NEUTROPHILS # (AUTO) 1.8 10^3/uL (1.5-6.6); NEUTROPHILS % (AUTO) 47.1 %; PLT - PLATELET COUNT 113 10^3/uL (130-450); RED BLOOD COUNT 2.79 10^6/uL (4.70-6.10); RED CELL DISTRIBUTION WIDTH 23.6 % (12.0-15.0); WHITE BLOOD COUNT 3.9 x10^3/uL (4.8-10.8)
[2019-10-26 16:55] LABS: PLATELET MORPHOLOGY NORMAL APPEARANCE (NORMAL)
[2019-10-26 16:56] LABS: PLATELET ESTIMATE, MANUAL DECREASED (<130,000) (NORMAL)
[2019-10-26] MEDS: ATORVASTATIN 40 MG TABLET PO SCH (21:13)
[2019-10-26] MEDS: SODIUM CHLORIDE FLUSH 0.9% 10 ML SYRINGE IVP PRN (21:14)
[2019-10-27] MEDS: SODIUM CHLORIDE FLUSH 0.9% 10 ML SYRINGE IVP SCH ×3 (00:24→16:31)
[2019-10-27] MEDS: SODIUM CHLORIDE 0.9% 1,000 ML IV SCH (01:09)
[2019-10-27] MEDS: ONDANSETRON 4 MG/2 ML VIAL IVP PRN (01:13)
[2019-10-27] MEDS: LABETALOL 20 MG/4 ML SYRINGE IVP PRN ×2 (01:22→16:51)
[2019-10-27] MEDS: SODIUM CHLORIDE FLUSH 0.9% 10 ML SYRINGE IVP PRN ×3 (04:41→16:51)
[2019-10-27] MEDS: ACETAMINOPHEN 325 MG TABLET PO PRN ×2 (04:42→18:13)
[2019-10-27 04:59] LABS: BASOPHILS % (AUTO) 0.7 %; EOSINOPHILS # (AUTO) 0.1 10^3/uL (0.0-0.7); EOSINOPHILS % (AUTO) 4.6 %; HGB - HEMOGLOBIN 7.5 g/dL (14.0-18.0); LYMPHOCYTES # (AUTO) 1.4 10^3/uL (1.5-3.5); LYMPHOCYTES % (AUTO) 44.3 %; MEAN CORPUSCULAR HEMOGLOBIN 27.6 pg (27.0-31.0); MEAN PLATELET VOLUME 9.8 fL (7.4-11.4); MONOCYTES # (AUTO) 0.3 10^3/uL (0.0-1.0); MONOCYTES % (AUTO) 9.1 %; NEUTROPHILS # (AUTO) 1.3 10^3/uL (1.5-6.6); NEUTROPHILS % (AUTO) 41.3 %; PLT - PLATELET COUNT 113 10^3/uL (130-450); RED BLOOD COUNT 2.72 10^6/uL (4.70-6.10); RED CELL DISTRIBUTION WIDTH 23.5 % (12.0-15.0); WHITE BLOOD COUNT 3.1 x10^3/uL (4.8-10.8)
[2019-10-27 05:06] LABS: CREATININE 0.5 mg/dL (0.6-1.2)
[2019-10-27 05:21] LABS: RBC MORPHOLOGY (MULTIPLE) 2+ ANISOCYTOSIS (NORMAL)
[2019-10-27 05:22] LABS: PLATELET ESTIMATE, MANUAL DECREASED (<130,000) (NORMAL); PLATELET MORPHOLOGY NORMAL APPEARANCE (NORMAL)
[2019-10-27] MEDS: INSULIN ASPART 300 UNIT/3 ML PEN SUBQ SCH ×4 (08:37→20:47)
--- NOTE | 2019-10-27 08:52 | PROVIDER PROGRESS NOTE ---
Assessment/Plan - Problem List (1) Bradycardia Assessment/Plan: Patient received IV Labetalol x1 overnight, for treating high blood pressure and 2 hours later had profound bradycardia, during sleep (was asymptomatic), with two pauses of 2 seconds in sinus rhythm. Will avoid heart rate slowing medications. Continue telemetry (2) Acute respiratory failure with hypoxia Assessment/Plan: The etiology was felt to be multifactorial: R lung opacity, R pleural effusion a nd non-healed R sided rib fractures, plus lung cancer and anemia. He is comfortable at rest. Will order PT to begin Try to wean supplemental oxygen to off Probable DCh tomorrow (3) Anemia Qualifiers: Anemia type: unspecified type Qualified Code(s): D64.9 - Anemia, unspecified Assessment/Plan: Hemoglobin was 6.6 on admission and he received 2 units of PRBCs. He started oral iron replacement at admission The hemoglobin is now fluctuating between 8.4 and 7.5, watching it every 12 hours. (4) GI bleed Qualifiers: GI bleed type/associated pathology: unspecified gastrointestinal hemorrhage type Qualified Code(s): K92.2 - Gastrointestinal hemorrhage, unspecified Assessment/Plan: Patient would like to try to avoid an EGD if possible. The hemoglobin has been stable after 2 units PRBCs transfused immediately after admission: Hemoglobin ranging 8.4-7.5. Continue to watch the hemoglobin every 12 hours Treating with PPI empirically for ulcer prophylaxis (5) Metastatic lung carcinoma Qualifiers: Laterality: left Qualified Code(s): C78.02 - Secondary malignant neoplasm of left lung Assessment/Plan: He got "his last" chemo recently and a PET scan for planning maintenance therapy is scheduled for 11/04/19. (6) Diabetes mellitus Assessment/Plan: Continue cc diet and ss Insulin (7) Hyperlipidemia Qualifiers: Hyperlipidemia type: unspecified Qualified Code(s): E78.5 - Hyperlipidemia, unspecified Assessment/Plan: Continue his home meds (8) Hypertension Qualifiers: Hypertension type: essential hypertension Qualified Code(s): I10 - Essential (primary) hypertension Assessment/Plan: Bp control is OK on present meds and management. (9) Hx of coronary artery disease Assessment/Plan: No NV this admission - Current Meds Current Meds: Current Medications Generic Name Dose Route Start Last Admin Trade Name Freq PRN Reason Stop Dose Admin Acetaminophen 650 mg 10/25/19 08:44 10/27/19 04:42 Tylenol PO 650 mg Q4HR PRN Administration Pain 1 to 4 Atorvastatin Calcium 40 mg 10/25/19 21:00 10/26/19 21:13 Lipitor PO 40 mg QPM KHUSHI Administration Cholecalciferol 5,000 unit 10/25/19 10:00 10/26/19 10:52 Vitamin D3 PO 5,000 unit DAILY KHUSHI Administration Fenofibrate 144 mg 10/26/19 09:00 10/26/19 10:52 Tricor PO 144 mg DAILY KHUSHI Administration Ferrous Gluconate 324 mg 10/25/19 10:00 10/26/19 07:41 Fergon PO 324 mg DAILYWM KHUSHI Administration Sodium Chloride 1,000 mls @ 100 mls/hr 10/25/19 09:00 10/27/19 01:09 Normal Saline 0.9% IV 100 mls/hr .Q10H KHUSHI Administration Insulin Aspart 1 - 5 unit 10/25/19 12:00 10/27/19 08:37 Novolog SUBQ Not Given 0800,1200,1700,2100 [facility] Protocol Labetalol HCl 10 mg 10/26/19 23:14 10/27/19 01:22 Trandate Syringe IVP 10 mg Q4H PRN Administration PER PHYSICIAN ORDER Morphine Sulfate 2 mg 10/25/19 08:44 10/25/19 16:03 Morphine (Carpuject) IVP 2 mg Q2HR PRN Administration Pain 8 to 10 Multivitamins/Minerals 1 tab 10/25/19 09:00 10/26/19 07:41 Theragran M PO 1 tab DAILYWM KHUSHI Administration Niacin 500 mg 10/25/19 09:00 10/26/19 10:52 Niaspan PO 500 mg DAILY KHUSHI Administration Ondansetron HCl 4 mg 10/25/19 08:44 10/27/19 01:13 Zofran Inj IVP 4 mg Q6HR PRN Administration Nausea / Vomiting Oxycodone HCl 5 mg 10/25/19 08:44 10/26/19 21:20 Roxicodone PO 5 mg Q4HR PRN Administration Pain 5 to 7 Pantoprazole Sodium 40 mg 10/25/19 09:00 10/26/19 21:13 Protonix IVP 40 mg BID KHUSHI Administration Sodium Chloride 10 ml 10/25/19 08:44 10/27/19 04:41 Normal Saline Flush 0.9% IVP 10 ml PRN PRN Administration NEEDED PER PROVIDER ORDERS Sodium Chloride 10 ml 10/25/19 09:00 10/27/19 00:24 Normal Saline Flush 0.9% IVP 10 ml 0100,0900,1700 KHUSHI Administration Sodium Chloride 20 ml 10/27/19 04:25 10/27/19 04:41 Normal Saline Flush 0.9% IVP 20 ml PRN PRN Administration After Blood Draw Throat Lozenges 1 lozenge 10/26/19 04:04 10/26/19 04:12 Cepacol MM 1 lozenge Q2HR PRN Administration Throat pain - Lab Result Fish Bone Diagrams: 10/28/19 04:15 10/28/19 04:15 - Additional Planning My Orders: My Active Orders 10/26/19 10:37 Telemetry- [RC] Q4HR 10/27/19 Evaluate and Treat PT [PT] Routine 10/28/19 05:00 BMP - BASIC METABOLIC PANEL [CHEM] DAILYLAB CBC - COMP BLD CT W/AUTO DIFF [HEME] DAILYLAB Subjective - Subjective Patient Reports: Feeling Better, Resting Comfortably Objective Vital Signs: Vital Signs - 24 hr 10/26/19 10/26/19 10/26/19 12:00 16:00 16:30 Temperature 36.6 C 36.6 C Heart Rate [ 84 84 Brachial] Respiratory 18 20 Rate Blood Pressure 149/122 H 173/90 H 164/89 H [Right Brachial artery] O2 Saturation 97 95 10/26/19 10/27/19 10/27/19 23:08 00:00 01:24 Temperature 36.5 C Heart Rate [ 79 84 81 Brachial] Respiratory 18 Rate Blood Pressure 189/76 H 168/87 H 167/86 H [Right Brachial artery] O2 Saturation 94 10/27/19 10/27/19 10/27/19 01:33 01:36 01:43 Temperature Heart Rate [ 74 70 71 Brachial] Respiratory Rate Blood Pressure 159/80 H 142/75 H 136/75 H [Right Brachial artery] O2 Saturation 10/27/19 10/27/19 10/27/19 01:49 02:05 02:12 Temperature Heart Rate [ 71 73 74 Brachial] Respiratory Rate Blood Pressure 149/74 H 158/80 H 159/80 H [Right Brachial artery] O2 Saturation 10/27/19 10/27/19 10/27/19 02:45 03:17 03:44 Temperature 36.4 C L Heart Rate [ 80 72 Brachial] Respiratory 18 17 Rate Blood Pressure 170/83 H 145/73 H [Right Brachial artery] O2 Saturation 100 92 10/27/19 08:00 Temperature 36.6 C Heart Rate [ 76 Brachial] Respiratory 20 Rate Blood Pressure 146/80 H [Right Brachial artery] O2 Saturation 92 Oxygen O2 Source Room air Oxygen Flow Rate 6 I&O (Last 24 Hrs): Intake and Output Totals x24h 10/25/19 10/26/19 10/27/19 23:59 23:59 23:59 Intake Total 2101 2831.667 1085 Balance 2101 2831.667 1085 General: Alert, Oriented x3 HEENT: Mucous membr. moist/pink Neck: Supple, No JVD Neuro: Alert, Non Focal Cardiovascular: Regular rate, No murmurs Respiratory: No respiratory distress, Breath sounds nml Extremities: No edema - Results Results: Laboratory Results WBC 3.1 x10^3/uL (4.8-10.8) L 10/27/19 04:30 RBC 2.72 10^6/uL (4.70-6.10) L 10/27/19 04:30 Hgb 7.5 g/dL (14.0-18.0) L 10/27/19 04:30 Hct 24.2 % (42.0-52.0) L 10/27/19 04:30 MCV 89.0 fL (80.0-94.0) 10/27/19 04:30 MCH 27.6 pg (27.0-31.0) 10/27/19 04:30 MCHC 31.0 g/dL (32.0-36.0) L 10/27/19 04:30 RDW 23.5 % (12.0-15.0) H 10/27/19 04:30 Plt Count 113 10^3/uL (130-450) L 10/27/19 04:30 MPV 9.8 fL (7.4-11.4) 10/27/19 04:30 Neut # (Auto) 1.3 10^3/uL (1.5-6.6) L 10/27/19 04:30 Lymph # (Auto) 1.4 10^3/uL (1.5-3.5) L 10/27/19 04:30 [place] # (Auto) 0.3 10^3/uL (0.0-1.0) 10/27/19 04:30 Eos # (Auto) 0.1 10^3/uL (0.0-0.7) 10/27/19 04:30 Baso # (Auto) 0.0 10^3/uL (0.0-0.1) 10/27/19 04:30 Absolute Nucleated RBC 0.00 x10^3/uL 10/27/19 04:30 Band Neuts % (Manual) Not Reportable 10/25/19 14:40 Abnorm Lymph % (Manual) Not Reportable 10/25/19 14:40 Nucleated RBC % 0.0 /100WBC 10/27/19 04:30 Neutrophils # (Manual) Not Reportable 10/25/19 14:40 Lymphocytes # (Manual) Not Reportable 10/25/19 14:40 Monocytes # (Manual) Not Reportable 10/25/19 14:40 Eosinophils # (Manual) Not Reportable 10/25/19 14:40 Basophils # (Manual) Not Reportable 10/25/19 14:40 Differential Comment MANUAL=AUTO DIFF 10/25/19 14:40 Manual Slide Review Indicated 10/27/19 04:30 WBC Morphology NORMAL APPEARANCE (NORMAL) 10/27/19 04:30 Platelet Estimate DECREASED (<130,000) (NORMAL) 10/27/19 04:30 Platelet Morphology NORMAL APPEARANCE (NORMAL) 10/27/19 04:30 RBC Morph Micro Appear 2+ ANISOCYTOSIS (NORMAL) 1+ MACROCYTOSIS (NORMAL) 1+ MICROCYTOSIS (NORMAL) 1+ OVALOCYTES (NORMAL) 1+ SCHISTOCYTES (NORMAL) 10/25/19 14:40 RBC Morph Micro Appear 2+ ANISOCYTOSIS (NORMAL) 1+ MACROCYTOSIS (NORMAL) 1+ MICROCYTOSIS (NORMAL) 1+ OVALOCYTES (NORMAL) 1+ SCHISTOCYTES (NORMAL) 10/25/19 14:40 RBC Morph Micro Appear 2+ ANISOCYTOSIS (NORMAL) 1+ MACROCYTOSIS (NORMAL) 1+ MICROCYTOSIS (NORMAL) 1+ OVALOCYTES (NORMAL) 1+ SCHISTOCYTES (NORMAL) 10/25/19 14:40 RBC Morph Micro Appear 2+ ANISOCYTOSIS (NORMAL) 1+ MACROCYTOSIS (NORMAL) 1+ MICROCYTOSIS (NORMAL) 1+ OVALOCYTES (NORMAL) 1+ SCHISTOCYTES (NORMAL) 10/25/19 14:40 RBC Morph Micro Appear 2+ ANISOCYTOSIS (NORMAL) 1+ MACROCYTOSIS (NORMAL) 1+ MICROCYTOSIS (NORMAL) 2+ HYPOCHROMASIA (NORMAL) 1+ OVALOCYTES (NORMAL) 10/25/19 20:36 RBC Morph Micro Appear 2+ ANISOCYTOSIS (NORMAL) 1+ MACROCYTOSIS (NORMAL) 1+ MICROCYTOSIS (NORMAL) 2+ HYPOCHROMASIA (NORMAL) 1+ OVALOCYTES (NORMAL) 10/25/19 20:36 RBC Morph Micro Appear 2+ ANISOCYTOSIS (NORMAL) 1+ MACROCYTOSIS (NORMAL) 1+ MICROCYTOSIS (NORMAL) 2+ HYPOCHROMASIA (NORMAL) 1+ OVALOCYTES (NORMAL) 10/25/19 20:36 RBC Morph Micro Appear 2+ ANISOCYTOSIS (NORMAL) 1+ MACROCYTOSIS (NORMAL) 1+ MICROCYTOSIS (NORMAL) 2+ HYPOCHROMASIA (NORMAL) 1+ OVALOCYTES (NORMAL) 10/25/19 20:36 RBC Morph Micro Appear 2+ ANISOCYTOSIS (NORMAL) 1+ MACROCYTOSIS (NORMAL) 1+ MICROCYTOSIS (NORMAL) 2+ HYPOCHROMASIA (NORMAL) 1+ OVALOCYTES (NORMAL) 10/25/19 20:36 RBC Morph Micro Appear 2+ ANISOCYTOSIS (NORMAL) 1+ HYPOCHROMASIA (NORMAL) 10/26/19 02:50 RBC Morph Micro Appear 2+ ANISOCYTOSIS (NORMAL) 1+ HYPOCHROMASIA (NORMAL) 10/26/19 02:50 RBC Morph Micro Appear 2+ ANISOCYTOSIS (NORMAL) 2+ HYPOCHROMASIA (NORMAL) 10/26/19 15:40 RBC Morph Micro Appear 2+ ANISOCYTOSIS (NORMAL) 2+ HYPOCHROMASIA (NORMAL) 10/26/19 15:40 RBC Morph Micro Appear 2+ ANISOCYTOSIS (NORMAL) 10/27/19 04:30 PT 14.2 secs (9.9-12.6) H 10/26/19 02:50 INR 1.3 (0.8-1.2) H 10/26/19 02:50 Sodium 139 mmol/L (135-145) 10/27/19 04:30 Potassium 3.6 mmol/L (3.5-5.0) 10/27/19 04:30 Chloride 103 mmol/L (101-111) 10/27/19 04:30 Carbon Dioxide 29 mmol/L (21-32) 10/27/19 04:30 Anion Gap 7.0 (6-13) 10/27/19 04:30 BUN 15 mg/dL (6-20) 10/27/19 04:30 Creatinine 0.5 mg/dL (0.6-1.2) L 10/27/19 04:30 Estimated GFR (MDRD) 163 (>89) 10/27/19 04:30 Glucose 111 mg/dL (70-100) H 10/27/19 04:30 Glycated Hemoglobin 6.2 % (4.6-6.2) 10/25/19 09:43 Estim Average Glucose 131 (70-100) H 10/25/19 09:43 Calcium 8.0 mg/dL (8.5-10.3) L 10/27/19 04:30 Total Bilirubin 0.6 mg/dL (0.2-1.0) 10/26/19 02:50 AST 14 IU/L (10-42) 10/26/19 02:50 ALT < 10 IU/L (10-60) L 10/26/19 02:50 Alkaline Phosphatase 31 IU/L (42-121) L 10/26/19 02:50 Troponin I High Sens 7.0 ng/L (2.3-19.7) 10/25/19 04:42 B-Natriuretic Peptide 29 pg/mL (5-100) 10/25/19 04:42 Total Protein 5.3 g/dL (6.7-8.2) L 10/26/19 02:50 Albumin 2.8 g/dL (3.2-5.5) L 10/26/19 02:50 Globulin 2.5 g/dL (2.1-4.2) 10/26/19 02:50 Albumin/Globulin Ratio 1.1 (1.0-2.2) 10/26/19 02:50 Lipase 22 U/L (22-51) 10/25/19 04:42 Blood Type O POSITIVE 10/25/19 05:10 Blood Type Recheck O POSITIVE 10/25/19 04:42 Antibody Screen NEGATIVE 10/25/19 05:10 Crossmatch IS Only See Detail 10/25/19 05:10 - Procedures Procedures: Procedures EXCISION OF RIGHT KNEE JOINT, PERC ENDO APPROACH (09/03/15)
[2019-10-27] MEDS: FERROUS GLUCONATE 324 MG TABLET PO SCH (09:58)
[2019-10-27] MEDS: NIACIN ER 500 MG TABLET PO SCH (09:59)
[2019-10-27] MEDS: FENOFIBRATE 48 MG TABLET PO SCH (09:59)
[2019-10-27] MEDS: CHOLECALCIFEROL 5,000 UNIT CAPSULE PO SCH (09:59)
[2019-10-27] MEDS: MULTIVITAMIN W/MINERALS TABLET PO SCH (09:59)
[2019-10-27] MEDS: PANTOPRAZOLE 40 MG VIAL IVP SCH ×2 (09:59→20:47)
[2019-10-27] MEDS: oxyCODONE 5 MG TABLET PO PRN (13:31)
[2019-10-27] MEDS ORDERED: hydrALAZINE INJ 20 MG/ML VIAL IVP PRN (19:48)
[2019-10-27] MEDS: ATORVASTATIN 40 MG TABLET PO SCH (20:48)
[2019-10-28] MEDS: oxyCODONE 5 MG TABLET PO PRN (00:13)
[2019-10-28] MEDS: SODIUM CHLORIDE FLUSH 0.9% 10 ML SYRINGE IVP SCH ×2 (00:19→08:10)
[2019-10-28] MEDS: SODIUM CHLORIDE FLUSH 0.9% 10 ML SYRINGE IVP PRN ×3 (02:21→05:12)
[2019-10-28 05:39] LABS: BASOPHILS % (AUTO) 0.4 %; EOSINOPHILS # (AUTO) 0.1 10^3/uL (0.0-0.7); EOSINOPHILS % (AUTO) 4.9 %; HGB - HEMOGLOBIN 7.9 g/dL (14.0-18.0); LYMPHOCYTES # (AUTO) 1.1 10^3/uL (1.5-3.5); LYMPHOCYTES % (AUTO) 47.3 %; MEAN CORPUSCULAR HEMOGLOBIN 28.2 pg (27.0-31.0); MEAN CORPUSCULAR HGB CONC 31.1 g/dL (32.0-36.0); MEAN CORPUSCULAR VOLUME 90.7 fL (80.0-94.0); MEAN PLATELET VOLUME 9.7 fL (7.4-11.4); MONOCYTES # (AUTO) 0.4 10^3/uL (0.0-1.0); MONOCYTES % (AUTO) 18.1 %; NEUTROPHILS # (AUTO) 0.7 10^3/uL (1.5-6.6); NEUTROPHILS % (AUTO) 29.3 %; PLT - PLATELET COUNT 132 10^3/uL (130-450); RED CELL DISTRIBUTION WIDTH 23.9 % (12.0-15.0); WHITE BLOOD COUNT 2.3 x10^3/uL (4.8-10.8)
[2019-10-28 05:48] LABS: CALCIUM 7.8 mg/dL (8.5-10.3); CREATININE 0.5 mg/dL (0.6-1.2)
[2019-10-28 07:43] VITALS: BP 150/77
[2019-10-28] MEDS: INSULIN ASPART 300 UNIT/3 ML PEN SUBQ SCH ×2 (07:45→11:54)
[2019-10-28] MEDS: ACETAMINOPHEN 325 MG TABLET PO PRN (08:09)
[2019-10-28] MEDS: CHOLECALCIFEROL 5,000 UNIT CAPSULE PO SCH (08:09)
[2019-10-28] MEDS: FERROUS GLUCONATE 324 MG TABLET PO SCH (08:10)
[2019-10-28] MEDS: NIACIN ER 500 MG TABLET PO SCH (08:10)
[2019-10-28] MEDS: PANTOPRAZOLE 40 MG VIAL IVP SCH (08:10)
[2019-10-28] MEDS: MULTIVITAMIN W/MINERALS TABLET PO SCH (08:10)
[2019-10-28] MEDS: FENOFIBRATE 48 MG TABLET PO SCH (08:10)
--- NOTE | 2019-10-28 08:40 | Discharge Plan ---
Discharge Plan Problem Reviewed?: Yes Disposition: Home, Self Care Condition: Stable Prescriptions: Azithromycin [Zithromax Tri-Tino] 500 mg PO DAILY #3 tablet Ferrous Gluconate 240 mg PO DAILY #30 tablet Omeprazole 20 mg PO BID #60 capsule. Diet: Diabetic Activity Restrictions: Activity as Tolerated Shower Restrictions: No Driving Restrictions: No Assistance Devices: Cane Weight Bearing: Full Weight Health Concerns: You were admitted due to severe shortness of breath which was multifactorial: Related to the recent rib fractures with incomplete lung expansion on the right side, small right-sided fluid present, possible small right-sided pneumonia, symptoms worsened due to work of breathing increased for anemia compensation. Your anemia is felt to be from chemotherapy plus GI blood loss. You wanted to avoid having endoscopy if possible. You received blood transfusions and then your hemoglobin has been stable. You are being treated empirically for peptic ulcer disease. Plan of Treatment: During hospitalization here, we found that your heart rate has profound slowing if you get a beta-anuj. You should avoid getting any beta-anuj medications. You may resume all your prehospital medications, except STOP daily aspirin for 2-4 weeks. Avoid aspirin and anti-inflammatory medications like Motrin, for 2 to 4 weeks. Resume you diabetic management. New prescriptions are being ordered for treatment of the probable pneumonia and for a probable peptic ulcer. and Iron for the anemia. The prescriptions are electronically sent to your [facility]. You should see your PCP in 1 to 2 weeks to determine when aspirin can be restarted, and to check your blood test regarding the anemia and check your lungs. Keep using an Incentive Spirometer to avoid lung under inflation or collapse. Care Goals: Stabilization is the goal Assessment: The patient is agreeable with the plan. Additional Instructions or Follow Up instructions: If you have new or worsening symptoms, contact your PCP for advice or come to the ER. No Smoking: If you smoke, Please STOP! Call for help. Follow-up with: Pavel Francois MD [Primary Care Provider] -
--- NOTE | 2019-10-28 09:05 | DISCHARGE SUMMARY ---
Discharge Summary Admit Date: 10/25/19 Discharge Date: 10/28/19 Discharging Provider: Dr Mya Cornejo Primary Care Provider: Dr Pavel Francois Code Status: Attempt Resuscitation Condition at Discharge: Stable Discharge Disposition: 01 Home, Self Care - DIAGNOSES Admission Diagnoses: (1) Acute respiratory failure with hypoxia (2) Anemia (3) GI bleed (4) Metastatic lung carcinoma (5) Diabetes mellitus with hyperglycemia (6) Hyperlipidemia (7) Ribs, multiple fractures (8) Hypertension Discharge Diagnoses with Status of Each Condition: See below - HPI History of Present Illness: From the admission H&P of Dr Juan M Toribio: Patient is a very pleasant 74-year-old gentleman with a past medical history of diabetes mellitus type 2, hyperlipidemia, Coronary artery disease, peripheral vascular disease, History of tobacco abuse, history of abdominal aortic aneurysm status post repair and unfortunate diagnosis of metastatic lung cancer which was made in May 2019 with metastasis to his liver currently undergoing chemotherapy. The patient was recently seen here at [facility] on 10/08/2019 in the emergency department as he had had a fall. Due to the fall the patient suffered a moderate right pneumothorax with fractures of the lateral right seventh through 11th ribs. Patient had a chest tube placed in the emergency department and was sent to [facility] for this unfortunate trauma. The patient was hospitalized there until 10/13/2019 at which point he was discharged home. Patient states that when he returned home he felt okay. He states he was still suffering from some mild shortness of breath but was using an incentive spirometer and appeared to be improving. He states that on 10/18/2019 he received a dose of chemotherapy. He states that he has a 4 drug regimen and gets his chemotherapy at [facility] in [place]. The patient states that initially after the chemo he was feeling pretty good for about 2 days. He states that on 10/21/2019 he began noticing increasing fatigue which is normal after chemotherapy and some shortness of breath. He states that shortness of breath continued to progress over the next 4 days and yesterday he states that he could not breathe. He became so short of breath that his called EMS and patient was brought to the emergency department. The patient denies any cough, fevers or chills. The patient denies any black or bloody stools but according to EMS the patient's stool was bloody when they picked him up at his home. The patient denies any chest pain. He does state he has had very poor appetite and poor oral intake for the last week. He denies any nausea or vomiting. The patient denies any diarrhea. The patient denies any urinary urgency or frequency. Patient denies any dysuria. The patient denies any focal neurologic deficits. On presentation to the emergency department the patient was in significant respiratory distress. He was tachycardic with a heart rate of 111, tachypneic with respiratory rate of 26 and was placed on a nonrebreather for comfort. The patient was in a tripod position and had increased work of breathing. Routine lab work was done in the emergency department which revealed the patient had a hemoglobin of 6.6 which was down from a baseline of 9.2. The patient's lab work also revealed that he was hyponatremic with a sodium of 133, hyperglycemic with a blood glucose of 237 and his creatinine was slightly up from his baseline of 0.8 up to 1.2 with a elevated BUN of 41. The patient did admit to some lower abdominal pain when he was in the emergency department therefore he did undergo a CT of his abdomen and pelvis this revealed a new ovoid hypodense structure in the posterior inferior aspect of the right lower lobe of the liver measuring 2.4 cm, there was also multiple renal cysts, nonobstructing renal stones and findings consistent with endograft repair of an infrarenal abdominal aortic aneurysm. Given his presentation with respiratory failure the patient also underwent a CT angiogram of his lungs to rule out a PE. There was no finding of PE but there was finding of 6.1 x 5.2 cm mass which had decreased in size from previous in the left upper lobe. There was a small opacity and pleural fluid of the right lung base. The patient did have displaced fractures of the right seventh, eighth, ninth and 10th ribs and a nondisplaced fracture of the 12th rib. The patient was admitted with symptomatic anemia and concern for possible GI bleed. He was transfused 1 unit of packed RBCs in the emergency department and a second unit at admission, and admitted for management of respiratory distress. - HOSPITAL COURSE Hospital Course: (1) Acute respiratory failure with hypoxia The etiology was felt to be multifactorial: R lung opacity, R pleural effusion and non-healed R sided rib fractures causing splinting, plus lung cancer and anemia. Supplemental oxygen was used then weaned to off, when he felt better after the blood transfusions (see below). He was seen by physical therapy and saturations were good with walking. (2) Anemia Hemoglobin was 6.6 on admission and he received 2 units of PRBCs. The hemoglobin fluctuated between 8.4 and 7.5, watching it every 12 hours. He was started oral iron replacement at admission and discharged on this. (3) GI bleed His stool was heme (+). Patient wanted to try to avoid an EGD if possible. The hemoglobin was stable after 2 units PRBCs transfused immediately after admission, ranging 8.4-7.5. He was treated with PPI empirically for ulcer prophylaxis and was discharged on new Omeprazole 20 mg bid and told to stop daily aspirin for at least 2 weeks and to resume it when OKd by his PCP at a hospital follow-up office vsit in 1-2 weeks. (4) Lung opacity He had initiation of empiric antibiotics for a short course of treatment. (5) Recent rib fractures There is likely still some splinting and he was ordered to use incentive spirometry. (6) Bradycardia The patient received IV Labetalol twice, which was ordered prn for treating high blood pressure and 2 hours later each time had profound bradycardia (he had 2-5 sec pauses). He should avoid heart rate slowing medications. (7) Metastatic lung carcinoma He got "his last" chemo recently and a PET scan for planning maintenance therapy is scheduled for 11/04/19. (8) Diabetes mellitus His Actos was on hold and he was on a diabetic diet and had sliding scale Insulin coverage. His A1c was good at 6.2. His prior management was advised to be resumed at discharge. (9) Hyperlipidemia Continue his home meds (10) Hypertension BP was intermittently elevated, for which he got prn iv Labetolol, which caused thew above profound bradycardia. He should probably avoid heart-rate slowing meds. His home medication was resumed at discharge. (11) Hx of coronary artery disease No SD this admission, with normal hs-troponins. (12) S/P AAA repair He needs blood pressure and cholesterol management lifelong. - ALLERGIES Allergies/Adverse Reactions: Allergies Allergy/AdvReac Type Severity Reaction Status Date / Time No Known Drug Allergies Allergy Verified 10/25/19 05:03 - MEDICATIONS Home Medications: Ambulatory Orders Medication Instructions Recorded Confirmed Cholecalciferol (Vitamin D3) 5,000 unit PO DAILY 09/01/15 10/25/19 [Vitamin D3] Cinnamon Bark [Cinnamon] 1,700 mg PO DAILY 09/01/15 10/25/19 Fenofibrate Nanocrystallized 145 mg PO DAILY 09/01/15 10/25/19 [Tricor] Multivit-Mins/Iron/Folic/Lycop 1 tab PO DAILY 09/01/15 10/25/19 [Centrum Men's Tablet] Niacin [Niacin ER] 500 mg PO DAILY 09/01/15 10/25/19 Pioglitazone HCl [Actos] 45 mg PO DAILY 09/01/15 10/25/19 Ramipril 10 mg PO BID 09/01/15 10/25/19 Rosuvastatin Calcium [Crestor] 20 mg PO DAILY 09/01/15 10/25/19 oxyCODONE [Roxicodone] 5 mg PO QID PRN 10/25/19 10/25/19 Azithromycin [Zithromax Tri-Tino] 500 mg PO DAILY #3 tablet 10/28/19 Ferrous Gluconate 240 mg PO DAILY #30 tablet 10/28/19 Omeprazole 20 mg PO BID #60 capsule. 10/28/19 - PHYSICAL EXAM AT DISCHARGE General Appearance: positive: No acute distress, Alert, Other (Pale) Eyes Bilateral: positive: Normal inspection, EOMI ENT: positive: ENT inspection nml Neck: positive: Nml inspection, No JVD Respiratory: positive: No respiratory distress, Other (Diminishe breath sounds at bases) Cardiovascular: positive: Regular rate & rhythm, No murmur Abdomen: positive: Non-tender, Nml bowel sounds, No distention Skin: positive: Pallor Extremities: positive: No pedal edema Neurologic/Psychiatric: positive: Oriented x3, Other (Grossly intact) - LABS Result Diagrams: 10/28/19 04:15 10/28/19 04:15 - DIAGNOSTIC IMAGING Diagnostic Imaging Results: Final report reviewed - FOLLOW UP Follow Up: See PCP in 1 to 2 weeks. - TIME SPENT Time Spent in Discharge (Minutes): 45
== END 2019-10-28 12:20 | disposition home or self-care (01) | DRG 189 ==
LOC: EDUNIT# → ED 04:26 → MS2 08:44
PROVIDERS: ADMIT Internal Medicine; ATTEND Internal Medicine
DX: D64.9 Anemia, unspecified (principal); J96.01 Acute respiratory failure with hypoxia; J18.9 Pneumonia, unspecified organism; K92.2 Gastrointestinal hemorrhage, unspecified; E78.00 Pure hypercholesterolemia, unspecified; C34.12 Malignant neoplasm of upper lobe, left bronchus or lung; C34.90 Malignant neoplasm of unspecified part of unspecified bronchus or lung; C78.7 Secondary malignant neoplasm of liver and intrahepatic bile duct; E87.1 Hypo-osmolality and hyponatremia; D64.81 Anemia due to antineoplastic chemotherapy; T45.1X5A Adverse effect of antineoplastic and immunosuppressive drugs, initial encounter; Y92.531 Health care provider office as the place of occurrence of the external cause; E11.65 Type 2 diabetes mellitus with hyperglycemia; E11.42 Type 2 diabetes mellitus with diabetic polyneuropathy; E11.51 Type 2 diabetes mellitus with diabetic peripheral angiopathy without gangrene; R00.1 Bradycardia, unspecified; T44.8X5A Adverse effect of centrally-acting and adrenergic-neuron-blocking agents, initial encounter; Y92.230 Patient room in hospital as the place of occurrence of the external cause; E78.5 Hyperlipidemia, unspecified; S22.41XD Multiple fractures of ribs, right side, subsequent encounter for fracture with routine healing; W19.XXXD Unspecified fall, subsequent encounter; I25.10 Atherosclerotic heart disease of native coronary artery without angina pectoris; M19.90 Unspecified osteoarthritis, unspecified site; Z79.82 Long term (current) use of aspirin; Z79.84 Long term (current) use of oral hypoglycemic drugs; Z79.899 Other long term (current) drug therapy; Z86.79 Personal history of other diseases of the circulatory system; Z87.891 Personal history of nicotine dependence
CPT/HCPCS: 36415; 71045; 71275; 74177; 80048; 80053; 83036; 83690; 83880; 84484; 85025; 85610; 86850; 86900; 86901; 86920; 93005; 96374; 97162; 97530; 99284; 99285; A9270; P9016; Q9967

== ENCOUNTER 2019-11-01 10:46 | Outpatient (CLI) | payer MEDICARE, OTHER ==
[2019-11-01 17:27] LABS: HGB - HEMOGLOBIN 8.6 g/dL (14.0-18.0); MEAN CORPUSCULAR HEMOGLOBIN 29.3 pg (27.0-31.0); MEAN CORPUSCULAR HGB CONC 29.8 g/dL (32.0-36.0); MEAN CORPUSCULAR VOLUME 98.3 fL (80.0-94.0); MEAN PLATELET VOLUME 9.6 fL (7.4-11.4); RED BLOOD COUNT 2.94 10^6/uL (4.70-6.10); RED CELL DISTRIBUTION WIDTH 25.7 % (12.0-15.0); WHITE BLOOD COUNT 3.5 x10^3/uL (4.8-10.8)
== END 2019-11-01 10:47 | disposition home or self-care (01) ==
LOC: LAB.S 10:46
PROVIDERS: ATTEND Internal Medicine
DX: D50.9 Iron deficiency anemia, unspecified (principal); K92.2 Gastrointestinal hemorrhage, unspecified
CPT/HCPCS: 36415; 85027

== ENCOUNTER 2019-11-05 08:57 | Inpatient (IN) | payer MEDICARE, OTHER ==
--- NOTE | 2019-11-05 09:17 | ED Physician Documentation ---
PD HPI DYSPNEA - Stated complaint Stated Complaint: SOA - Chief complaint Chief Complaint: Resp - History obtained from History obtained from: Patient - History of Present Illness Timing - onset: Last night Timing - onset during: Light activity Timing - details: Abrupt onset Pain level now: 0 Improved by: O2 Worsened by: Exertion Associated symptoms: Bilateral edema. No: Fever, Cough, Chest pain / discomfort, Palpitations Similar symptoms before: Diagnosis Recently seen: Admitted - Additional information Additional information: This is a 74-year-old man with a history of lung cancer with metastasis to the brain and anemia requiring transfusion just within the past week who presents with complaints that he had trouble sleeping last night and was short of breath whenever he got up to the bathroom. This morning he was needing increasing oxygen requirements. He is normally on O2 at night but not during the day. Was very lightheaded through the night whenever he was up and walking around but did not fall or pass out. When he was admitted to the hospital he was found to have blood in his stools and decision was made not to scope him at that time. He failed to stop his be daily baby aspirin and was placed on Prilosec. He denies any headache. He denies any cough or bringing up any phlegm. No palpitations or chest pain. He has noted some bilateral lower extremity edema starting about the day after [place]. He has some neuropathy in his lower extremities due to the chemotherapy for the lung cancer. He just went to have a PET scan yesterday as he has finished his 4 rounds of chemotherapy. He is also had radiation to the brain metastasis in August 2019. Patient denies history of asthma, emphysema or NM. Denies urinary symptoms or hematuria. Review of Systems Constitutional: denies: Fever Eyes: denies: Loss of vision Nose: denies: Congestion Throat: denies: Sore throat Cardiac: reports: Pedal edema. denies: Chest pain / pressure, Palpitations Respiratory: reports: Dyspnea. denies: Cough GI: reports: Bloody / black stool. denies: Abdominal Pain : denies: Dysuria, Frequency, Hematuria Skin: denies: Rash Neurologic: reports: Generalized weakness, Near syncope. denies: Headache, LOC Endocrine: reports: Other (Patient is a diabetic) Immunocompromised: denies: Chemotherapy (No current chemotherapy treatment) PD PAST MEDICAL HISTORY - Past Medical History Cardiovascular: High cholesterol, Coronary artery disease, Peripheral Vascular Disease, Other Respiratory: None Neuro: Peripheral neuropathy Endocrine/Autoimmune: Type 2 diabetes GI: Diverticulitis : Kidney stones HEENT: None Psych: None Musculoskeletal: Osteoarthritis Derm: None - Past Surgical History Past Surgical History: Yes General: Cholecystectomy, Colonoscopy Cardiovascular: AAA - Present Medications Home Medications: Ambulatory Orders Medication Instructions Recorded Confirmed Cholecalciferol (Vitamin D3) 5,000 unit PO DAILY 09/01/15 11/05/19 [Vitamin D3] Cinnamon Bark [Cinnamon] 1,700 mg PO DAILY 09/01/15 11/05/19 Fenofibrate Nanocrystallized 145 mg PO DAILY 09/01/15 11/05/19 [Tricor] Multivit-Mins/Iron/Folic/Lycop 1 tab PO DAILY 09/01/15 11/05/19 [Centrum Men's Tablet] Niacin [Niacin ER] 500 mg PO DAILY 09/01/15 11/05/19 Pioglitazone HCl [Actos] 45 mg PO DAILY 09/01/15 11/05/19 Ramipril 10 mg PO BID 09/01/15 11/05/19 Rosuvastatin Calcium [Crestor] 20 mg PO QPM 09/01/15 11/05/19 oxyCODONE [Roxicodone] 5 mg PO QID PRN 10/25/19 11/05/19 Ferrous Gluconate 240 mg PO DAILY #30 tablet 10/28/19 11/05/19 Omeprazole 20 mg PO BID #60 capsule. 10/28/19 11/05/19 - Allergies Allergies/Adverse Reactions: Allergies Allergy/AdvReac Type Severity Reaction Status Date / Time No Known Drug Allergies Allergy Verified 11/05/19 09:06 - Social History Does the pt smoke?: No Smoking Status: Former smoker Does the pt drink ETOH?: No Does the pt have substance abuse?: No - Immunizations Immunizations are current?: No - POLST Patient has POLST: No POLST Status: Full Code PD ED PE NORMAL - Vitals Vital signs reviewed: Yes - General General: Alert and oriented X 3, No acute distress, Well developed/nourished, Other (Pale 74-year-old man. He is able to speak in full sentences but appears dyspneic) - HEENT HEENT: Atraumatic, PERRL Results - Vitals Vitals: Vital Signs - 24 hr 11/05/19 11/05/19 11/05/19 09:02 09:36 09:54 Temperature 36.5 C Heart Rate 127 H 101 H 98 Respiratory 24 17 18 Rate Blood Pressure 149/86 H 133/68 H 144/81 H O2 Saturation 100 100 100 11/05/19 10:06 Temperature Heart Rate 99 Respiratory 19 Rate Blood Pressure 135/81 H O2 Saturation 100 Oxygen O2 Source [With Activity] Room air O2 Source Nasal cannula Oxygen Flow Rate 2 - EKG (time done) 0905 Rate: Rate (enter#) (115), Tachy Rhythm: Sinus tachycardia Intervals: No: Wide QRS Ischemia: Q waves (II, III, aVF, V4-6), Non specific changes Compare to prior EKG: Unchanged from prior EKG - Labs Labs: Laboratory Tests 11/05/19 11/05/19 11/05/19 09:12 09:23 09:23 WBC 7.8 RBC 1.96 L Hgb 5.8 L* Hct 19.4 L* MCV 99.0 H MCH 29.6 MCHC 29.9 L RDW 26.5 H Plt Count 159 MPV 9.3 Neut # (Auto) 5.3 Lymph # (Auto) 1.7 Otero # (Auto) 0.8 Eos # (Auto) 0.0 Baso # (Auto) 0.0 Absolute Nucleated RBC 0.00 Nucleated RBC % 0.0 Manual Slide Review Indicated WBC Morphology NORMAL APPEARANCE Platelet Estimate NORMAL (130-450,000) Platelet Morphology NORMAL APPEARANCE RBC Morph Micro Appear OVALOCYTES PT 15.1 H INR 1.3 H Sodium Potassium Chloride Carbon Dioxide Anion Gap BUN Creatinine Estimated GFR (MDRD) Glucose Calcium Total Bilirubin AST ALT Alkaline Phosphatase B-Natriuretic Peptide Total Protein Albumin Globulin Albumin/Globulin Ratio Lipase Blood Type O POSITIVE Antibody Screen NEGATIVE Crossmatch IS Only See Detail 11/05/19 11/05/19 09:23 09:23 WBC RBC Hgb Hct MCV MCH MCHC RDW Plt Count MPV Neut # (Auto) Lymph # (Auto) Otero # (Auto) Eos # (Auto) Baso # (Auto) Absolute Nucleated RBC Nucleated RBC % Manual Slide Review WBC Morphology Platelet Estimate Platelet Morphology RBC Morph Micro Appear PT INR Sodium 135 Potassium 3.7 Chloride 101 Carbon Dioxide 25 Anion Gap 9.0 BUN 27 H Creatinine 0.7 Estimated GFR (MDRD) 111 Glucose 224 H Calcium 7.9 L Total Bilirubin 0.4 AST 16 ALT 10 Alkaline Phosphatase 37 L B-Natriuretic Peptide 28 Total Protein 5.3 L Albumin 3.0 L Globulin 2.3 Albumin/Globulin Ratio 1.3 Lipase 27 Blood Type Antibody Screen Crossmatch IS Only Departure - Departure Disposition: 66 [facility] DC/Xfer Clinical Impression: Anemia Qualifiers: Anemia type: other cause Other causes of anemia: other cause, not classified Qualified Code(s): D64.89 - Other specified anemias GI bleed Qualifiers: GI bleed type/associated pathology: unspecified gastrointestinal hemorrhage type Qualified Code(s): K92.2 - Gastrointestinal hemorrhage, unspecified Condition: Good Discharge Date/Time: 11/05/19 11:05
[2019-11-05] MEDS ORDERED: SODIUM CHLORIDE 0.9% 1,000 ML IV ONE (09:19)
[2019-11-05 09:32] LABS: BASOPHILS % (AUTO) 0.3 %; LYMPHOCYTES # (AUTO) 1.7 10^3/uL (1.5-3.5); LYMPHOCYTES % (AUTO) 22.1 %; MEAN CORPUSCULAR HEMOGLOBIN 29.6 pg (27.0-31.0); MEAN CORPUSCULAR HGB CONC 29.9 g/dL (32.0-36.0); MEAN PLATELET VOLUME 9.3 fL (7.4-11.4); MONOCYTES # (AUTO) 0.8 10^3/uL (0.0-1.0); MONOCYTES % (AUTO) 9.7 %; NEUTROPHILS # (AUTO) 5.3 10^3/uL (1.5-6.6); NEUTROPHILS % (AUTO) 67.4 %; PLT - PLATELET COUNT 159 10^3/uL (130-450); RED BLOOD COUNT 1.96 10^6/uL (4.70-6.10); RED CELL DISTRIBUTION WIDTH 26.5 % (12.0-15.0); WHITE BLOOD COUNT 7.8 x10^3/uL (4.8-10.8)
[2019-11-05 09:34] LABS: HGB - HEMOGLOBIN 5.8 g/dL (14.0-18.0)
[2019-11-05] MEDS ORDERED: FUROSEMIDE 20 MG/2 ML VIAL IVP PRN (09:40)
[2019-11-05 09:42] LABS: INR 1.3 (0.8-1.2); PT - PROTHROMBIN TIME 15.1 secs (9.9-12.6)
[2019-11-05 09:47] LABS: ALBUMIN/GLOBULIN RATIO 1.3 (1.0-2.2); BILIRUBIN,TOTAL 0.4 mg/dL (0.2-1.0); CALCIUM 7.9 mg/dL (8.5-10.3); CREATININE 0.7 mg/dL (0.6-1.2); TOTAL PROTEIN 5.3 g/dL (6.7-8.2)
--- NOTE | 2019-11-05 10:00 | XRAY Report ---
Reason: chest pain Procedure Date: 11/05/2019 Accession Number: [id number] / [id number] Procedure: XR - Chest 1 View X-Ray CPT Code: 01361 Final Report FULL RESULT: EXAM: CHEST RADIOGRAPHY EXAM DATE: 11/05/2019 09:30 AM. CLINICAL HISTORY: Chest pain. COMPARISON: CHEST 1 VIEW 10/25/2019 4:[address] SKULL BASE TO M 11/04/2019 12:08 PM. TECHNIQUE: 1 view. FINDINGS: Lungs/Pleura: The left hemidiaphragm remains elevated. There is no new airspace consolidation or pulmonary edema. There is blunting of the right costophrenic angle, possibly trace pleural effusion. No pneumothorax. Mediastinum: The cardiomediastinal silhouette is essentially unchanged, including left suprahilar/mediastinal mass. Other: Right-sided chest port with distal tip at the superior cavoatrial junction is again noted. A stent in the epigastric region is partially imaged. IMPRESSION: Essentially unchanged appearance with prominent mediastinal mass redemonstrated, better characterized on the PET/CT study obtained 11/04/2019. RADIA
[2019-11-05 10:07] LABS: PLATELET MORPHOLOGY NORMAL APPEARANCE (NORMAL)
[2019-11-05 10:08] LABS: PLATELET ESTIMATE, MANUAL NORMAL (130-450,000) (NORMAL)
[2019-11-05] MEDS ORDERED: FAMOTIDINE 20 MG/2 ML VIAL IVP STA (10:17)
[2019-11-05 10:35] LABS: BILIRUBIN,URINE NEGATIVE (NEGATIVE); GLUCOSE, URINE (UA) NEGATIVE (NEGATIVE); KETONES,URINE (UA) NEGATIVE (NEGATIVE); LEUKOCYTE ESTERASE, URINE NEGATIVE (NEGATIVE); NITRITE,URINE NEGATIVE (NEGATIVE); OCCULT BLOOD,URINE NEGATIVE (NEGATIVE); PROTEIN,URINE NEGATIVE (NEGATIVE); UROBILINOGEN,URINE 0.2 (NORMAL) E.U./dL (NORMAL)
[2019-11-05 10:47] LABS: CLARITY,URINE CLEAR (CLEAR)
--- NOTE | 2019-11-05 11:55 | PHARMACY PROGRESS NOTE ---
- Best Possible Medication History Admit Date and Time: 11/05/19 1018 Processed by: Pharmacy Medication History completed: Yes Patient Interview: Completed Secondary Source(s): Previous admit records As the person ultimately responsible for medication therapy, providers are able to order a medication from an existing home medication list in [facility] via the "Reconcile Routine" prior to Confirmation of that medication by manager support. Such practice is discouraged except when the physician, in their clinical judgment, deems that a medical need exists for a medication without regard to previous use.
--- NOTE | 2019-11-05 12:55 | CONSULTATION NOTE ---
Referring Provider Name of Referring Provider:: Dr. Cornejo Consult Date: 11/05/19 Chief Complaint - Chief Complaint Chief Complaint: anemia/GI bleed History of Present Illness - Admitted From Admitted From:: ER - History Obtained From Records Reviewed: yes History obtained from: pt, records Exam Limitations: none - History of Present Illness HPI Comment/Other: 74 yo male with Stage 4 lung cancer receiving palliative chemotherapy admitted today with GI bleeding and severe anemia. He reports dark stools for approximately one month, with stools occasionally becoming grossly bloody/maroon colored. This gross bleeding occurred approximately 10 days ago prompting admission and transfusion. Given his multiple medical comorbidities and his stability, he was treated with PPI therapy and transfusion, his bleeding stopped and he was discharged home only to return this morning complaining of dyspnea and having had a large bloody stool yesterday and again this morning. He had been told to take a PPI at home but just got the prescription filled several da ys ago. There has been no N/V. He reports vague abdominal discomfort over the past year and has tried a 2 week course of Prilosec with some improvement. He reports occasional heartburn and no dysphagia or hx of PUD. He reports a hx of regular NSAID use including daily aspirin as well as frequent ibuprofen over the past month for headache as well as chest wall pain. He fell and sustained multiple right sided rib fractures and a pneumothorax earlier this month. Since his recent hospitalization he reports no further aspirin or NSAID use. Alcohol use is minimal, he no longer smokes. There has been a gradual 20# wt loss over the past year or so. 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 A CT abd/pelvis earlier this month did not show evidence of gi tract involvement. It did show liver mets and an endovascular repair of his infrarenal AAA without apparent complication. He reports having neg EGD/colon in November of this year at [facility] to evaluate his abd pain. He was noted today to have a HGB of 5.8 and surgical consultation was requested. He has been hemodynamically stable. He reports a neg FH GI tumors. History - Past Medical History Cardiovascular: reports: High cholesterol, Coronary artery disease, Peripheral Vascular Disease, Other Respiratory: reports: None Neuro: reports: Peripheral neuropathy Endocrine/Autoimmune: reports: Type 2 diabetes GI: reports: Diverticulitis : reports: Incontinence, Kidney stones HEENT: reports: None Psych: reports: None Musculoskeletal: reports: Osteoarthritis Derm: reports: None MRSA Hx?: No Other Past Medical History: Lung CA - Past Surgical History General: reports: Cholecystectomy, Colonoscopy (Nov 2018, neg), EGD (Nov 2018, neg) Cardiovascular: reports: AAA (endovascular repair) - Family & Social History Family History: Mother: , CAD, Father: , CAD, Brother: , Renal Disease/Failure Living arrangement: At home Living Situation: With spouse/s.o. Social History Notes: Patient lives with his in [place], [place]. Patient is a former smoker smoked just less than 1 pack a day for 30 to 35 years. He occasionally drinks alcohol but is not a heavy drinker. He denies any illicit drug use. - Substance History Use: Uses substance without health or social issues: NONE - POLST Patient has POLST: No POLST Status: Full Code Meds/Allgy - Home Medications Home Medications: Ambulatory Orders Medication Instructions Recorded Confirmed Cholecalciferol (Vitamin D3) 5,000 unit PO DAILY 09/01/15 11/05/19 [Vitamin D3] Cinnamon Bark [Cinnamon] 1,700 mg PO DAILY 09/01/15 11/05/19 Fenofibrate Nanocrystallized 145 mg PO DAILY 09/01/15 11/05/19 [Tricor] Multivit-Mins/Iron/Folic/Lycop 1 tab PO DAILY 09/01/15 11/05/19 [Centrum Men's Tablet] Niacin [Niacin ER] 500 mg PO DAILY 09/01/15 11/05/19 Pioglitazone HCl [Actos] 45 mg PO DAILY 09/01/15 11/05/19 Ramipril 10 mg PO BID 09/01/15 11/05/19 Rosuvastatin Calcium [Crestor] 20 mg PO QPM 09/01/15 11/05/19 oxyCODONE [Roxicodone] 5 mg PO QID PRN 10/25/19 11/05/19 Ferrous Gluconate 240 mg PO DAILY #30 tablet 10/28/19 11/05/19 Omeprazole 20 mg PO BID #60 capsule. 10/28/19 11/05/19 - Allergies Allergies/Adverse Reactions: Allergies Allergy/AdvReac Type Severity Reaction Status Date / Time No Known Drug Allergies Allergy Verified 11/05/19 09:06 Review of Systems - Constitutional Constitutional: reports: Fatigue, Weakness, Poor appetite, Weight loss. denies: Fever, Chills - Gastrointestinal Gastrointestinal: reports: Abdominal pain (vague, mild), Change in bowel habits, Rectal bleeding, Black stools, Bloody stools, Poor appetite. denies: Abdominal distention, Constipation, Diarrhea, Nausea, Vomiting, Coffee grounds emesis, Reflux/heartburn, Bloating - Hematologic/Lymphatic Hematologic/Lymphatic: reports: Anemia. denies: Bruising, Blood clots, Bleeding tendencies - All Other Systems All Other Systems: reports: Reviewed and negative (or covered in HPI/PMH) Exam - Vital Signs Reviewed Vital Signs: Yes Vital Signs: Vital Signs x48h Temp Pulse Pulse Resp BP BP Pulse Ox 11/05/19 11:55 36.5 C 91 18 148/79 H 11/05/19 11:50 36.4 C L 95 20 131/82 H 11/05/19 11:20 36.4 C L 99 18 152/90 H 100 11/05/19 11:00 101 H 17 151/83 H 100 11/05/19 10:30 96 15 151/86 H 100 11/05/19 10:06 99 19 135/81 H 100 11/05/19 09:54 98 18 144/81 H 100 11/05/19 09:36 101 H 17 133/68 H 100 11/05/19 09:02 36.5 C 127 H 24 149/86 H 100 - Physical Exam General Appearance: positive: No acute distress, Alert Eyes Bilateral: positive: Normal inspection, No scleral icterus ENT: positive: ENT inspection nml, Pharynx nml, No signs of dehydration Neck: positive: No JVD, Trachea midline. negative: Lymphadenopathy (R), Lymphadenopathy (L) Respiratory: positive: Chest non-tender, No respiratory distress, Breath sounds nml. negative: Wheezes, Rales, Rhonchi Cardiovascular: positive: Regular rate & rhythm, No murmur, No gallop Abdomen: positive: Non-tender, No organomegaly, No distention. negative: Guarding, Rebound, Hepatomegaly, Splenomegaly, Mass Skin: positive: No rash, Warm, Dry, Pallor. negative: Cyanosis Extremities: positive: No pedal edema. negative: Calf tenderness Neurologic/Psychiatric: positive: Oriented x3 Conclusion and Plan - Lab Results Laboratory Results 11/05/19 10:25: Urine Color LT. YELLOW, Urine Clarity CLEAR, Urine pH 6.0, Ur Specific [place] 1.010, Urine Protein NEGATIVE, Urine Glucose (UA) NEGATIVE, Urine Ketones NEGATIVE, Urine Occult Blood NEGATIVE, Urine Nitrite NEGATIVE, Urine Bilirubin NEGATIVE, Urine Urobilinogen 0.2 (NORMAL), Ur Leukocyte Esterase NEGATIVE, Ur Microscopic Review NOT INDICATED, Urine Culture Comments NOT INDICATED 11/05/19 09:23: B-Natriuretic Peptide 28 11/05/19 09:23: Sodium 135, Potassium 3.7, Chloride 101, Carbon Dioxide 25, Anion Gap 9.0, BUN 27 H, Creatinine 0.7, Estimated GFR (MDRD) 111, Glucose 224 H, Calcium 7.9 L, Total Bilirubin 0.4, AST 16, ALT 10, Alkaline Phosphatase 37 L, Total Protein 5.3 L, Albumin 3.0 L, Globulin 2.3, Albumin/Globulin Ratio 1.3, Lipase 27 11/05/19 09:23: PT 15.1 H, INR 1.3 H 11/05/19 09:23: WBC 7.8, RBC 1.96 L, Hgb 5.8 L*, Hct 19.4 L*, MCV 99.0 H, MCH 29.6, MCHC 29.9 L, RDW 26.5 H, Plt Count 159, MPV 9.3, Neut # (Auto) 5.3, Lymph # (Auto) 1.7, [place] # (Auto) 0.8, Eos # (Auto) 0.0, Baso # (Auto) 0.0, Absolute Nucleated RBC 0.00, Nucleated RBC % 0.0, Manual Slide Review Indicated, WBC Morphology NORMAL APPEARANCE, Platelet Estimate NORMAL (130-450,000), Platelet Morphology NORMAL APPEARANCE, RBC Morph Micro Appear OVALOCYTES 11/05/19 09:12: Blood Type O POSITIVE, Antibody Screen NEGATIVE, Crossmatch IS Only See Detail - Diagnostic Imaging Results Diagnostic Imaging Results: positive: Final report reviewed (CXR notable for large left perihilar mass CT abd/pelvis as per HPI), Read independently Diagnostic Imaging Results Comments: see HPI/PM - EKG Results EKG Interpreted Independently: No EKG Findings: sinus tach - Diagnosis Diagnosis: GI bleed, major, recurrent; ddx includes upper as well as lower gi sources. He appears to be actively bleeding at present although with hemodynamic stability. NSAID gastropathy, H. Pylori infection, neoplasm, dieulafoy lesion are possible UGI sources; lower gi sources include angiodysplasia, diverticulosis, doubt neoplasm given recent favorable evaluation. - Plan Plan: EGD today with possible therapy if source identified. If neg, proceed to colonoscopy tomorrow after bowel prep later today. PAR conf with pt and consent obtained. Thanks,
[2019-11-05] MEDS ORDERED: FAMOTIDINE 20 MG/2 ML VIAL IVP SCH ×2 (13:05→21:00)
--- NOTE | 2019-11-05 13:09 | ANESTHESIA ---
Pre-Anesthesia VS, & Labs - Diagnosis Diagnosis GI bleed, major, recurrent; ddx includes upper as well as lower gi sources. He appears to be actively bleeding at present although with hemodynamic stability. NSAID gastropathy, H. Pylori infection, neoplasm, dieulafoy lesion are possible UGI sources; lower gi sources include angiodysplasia, diverticulosis, doubt neoplasm given recent favorable evaluation. - Procedure EGD Vital Signs: Temp Pulse Resp BP Pulse Ox 36.5 C 91 18 148/79 H 100 11/05/19 11:55 11/05/19 11:55 11/05/19 11:55 11/05/19 11:55 11/05/19 11:20 Height 5 ft 9 in Weight (kg) 66 kg Body Mass Index 21.4 - Lab Results Current Lab Results: Laboratory Tests 11/05/19 09:23: B-Natriuretic Peptide 28 11/05/19 09:23: Sodium 135, Potassium 3.7, Chloride 101, Carbon Dioxide 25, Anion Gap 9.0, BUN 27 H, Creatinine 0.7, Estimated GFR (MDRD) 111, Glucose 224 H , Calcium 7.9 L, Total Bilirubin 0.4, AST 16, ALT 10, Alkaline Phosphatase 37 L, Total Protein 5.3 L, Albumin 3.0 L, Globulin 2.3, Albumin/Globulin Ratio 1.3, Lipase 27 11/05/19 09:23: PT 15.1 H, INR 1.3 H 11/05/19 09:23: WBC 7.8, RBC 1.96 L, Hgb 5.8 L*, Hct 19.4 L*, MCV 99.0 H, MCH 29.6, MCHC 29.9 L, RDW 26.5 H, Plt Count 159, MPV 9.3, Neut # (Auto) 5.3, Lymph # (Auto) 1.7, [place] # (Auto) 0.8, Eos # (Auto) 0.0, Baso # (Auto) 0.0, Absolute Nucleated RBC 0.00, Nucleated RBC % 0.0, Manual Slide Review Indicated, WBC Morphology NORMAL APPEARANCE, Platelet Estimate NORMAL (130-450,000), Platelet Morphology NORMAL APPEARANCE, RBC Morph Micro Appear OVALOCYTES 11/05/19 09:12: Blood Type O POSITIVE, Antibody Screen NEGATIVE, Crossmatch IS Only See Detail Fish Bones: 11/05/19 09:23 11/05/19 09:23 Home Medications and Allergies Active Medications Acetaminophen (Tylenol) 650 mg PO Q4HR PRN PRN Reason: Pain 1 to 4 Famotidine (Pepcid) 20 mg IVP BID [facility] Sodium Chloride (Normal Saline Flush 0.9%) 10 ml IVP PRN PRN PRN Reason: NEEDED PER PROVIDER ORDERS Sodium Chloride (Normal Saline Flush 0.9%) 10 ml IVP 0100,0900,1700 KHUSHI Cholecalciferol (Vitamin D3) [Vitamin D3] 5,000 unit PO DAILY 09/01/15 Cinnamon Bark [Cinnamon] 1,700 mg PO DAILY 09/01/15 Fenofibrate Nanocrystallized [Tricor] 145 mg PO DAILY 09/01/15 Multivit-Mins/Iron/Folic/Lycop [Centrum Men's Tablet] 1 tab PO DAILY 09/01/15 Niacin [Niacin ER] 500 mg PO DAILY 09/01/15 Pioglitazone HCl [Actos] 45 mg PO DAILY 09/01/15 Ramipril 10 mg PO BID 09/01/15 Rosuvastatin Calcium [Crestor] 20 mg PO QPM 09/01/15 oxyCODONE [Roxicodone] 5 mg PO QID PRN 10/25/19 Allergies/Adverse Reactions: Allergies Allergy/AdvReac Type Severity Reaction Status Date / Time No Known Drug Allergies Allergy Verified 11/05/19 09:06 Anes History & Medical History - Anesthetic History Anesthesia Complications: reports: No previous complications Family history of Anesthesia Complications: Denies Family history of Malignant Hyperthermia: Denies - Medical History Cardiovascular: reports: High cholesterol, Coronary artery disease, Peripheral Vascular Disease, Other Pulmonary: reports: None, Other (lung cancer. broke ribs on 07 of october. uses o2 at night since after the rib fractures) Gastrointestinal: reports: Diverticulitis, Other (GI Bleed) Urinary: reports: Incontinence, Kidney stones Neuro: reports: Peripheral neuropathy Musculoskeletal: reports: Osteoarthritis Endocrine/Autoimmune: reports: Type 2 diabetes Blood Disorders: reports: Anemia Skin: reports: None Smoking Status: Former smoker Psychosocial: reports: Alcohol (very seldom) Other Past Medical History: Lung CA - Surgical History General: Cholecystectomy, Colonoscopy (Nov 2018, neg), EGD (Nov 2018, neg) Cardiothoracic: AAA (endovascular repair) Results - EKG Results EKG Comparison: Reviewed EKG Exam General: Alert, Oriented x3, Cooperative, No acute distress Dental: WNL Mouth Openin Fingerbreadth Neck Mobility: Normal Mallampati classification: II Thyromental Distance: 4-6 cm Respiratory: Lungs clear, Normal breath sounds, No respiratory distress, No accessory muscle use, Decreased breath sounds Cardiovascular: Regular rate, Normal S1, Normal S2, No murmurs Abdomen: Normal bowel sounds, Soft, No tenderness, No hepatospenomegaly, No masses Extremities: No clubbing, No cyanosis, Normal pulses, No tenderness/swelling, Other (bilateral pedal edema) Neurological: Normal gait, Normal speech, Strength at 5/5 X4 ext, Normal tone, Sensation intact, Cranial nerves 3-12 NL, Reflexes 2+ Mental/Cognitive Status: Alert/Oriented X3, Normal for patient Cognitive Status: Within normal limits Plan Anesthesia Type: MAC Consent for Procedure(s) Verified and Reviewed: Yes Code Status: Attempt Resuscitation ASA classification: 3-Severe systemic disease Is this case an emergency?: Yes
[2019-11-05] MEDS: SODIUM CHLORIDE FLUSH 0.9% 10 ML SYRINGE IVP PRN ×5 (13:40→22:00)
[2019-11-05] MEDS ORDERED: EPINEPHrine 1 MG/ML AMP ONE (13:56)
--- NOTE | 2019-11-05 13:58 | HISTORY & PHYSICAL EXAMINATION ---
DATE OF SERVICE: 11/05/2019 Physician: Mya Cornejo MD HISTORY OF PRESENT ILLNESS: This is a 74-year-old white male with a history of metastatic lung carcinoma, diabetes mellitus, hyperlipidemia, hypertension, fall with rib fractures approximately a month ago, requiring a chest tube for which he was hospitalized at another hospital. He was admitted here from 10/25/2019 to 10/28/2019 with shortness of breath, which was felt to be multifactorial, from a right pleural effusion, splinting from not healed right-sided rib fractures, his lung cancer, anemia and possibly pneumonia. He received 2 units of blood for hemoglobin of 6.6, which ale to 8.4. The patient at that time stated that he would like to not have endoscopy if it was possible. His hemoglobin was watched and fluctuated between 8.4 and 7.5, he was started on oral iron and there were no signs of active bleeding. Therefore, he did not undergo endoscopy. He did have heme-positive stools on that admission and he was discharged with empiric PPI treatment, and told to stop his aspirin for at least two weeks and to followup with his PCP. He did have a blood test done four days ago, which showed a stable hemoglobin of 8.7. Over the past for three or four days, he has noticed worsening dyspnea on exertion, PND and orthopnea, dizziness with walking and marked fatigue. With this, he came to the emergency room today. He did not stop his aspirin, forgot to do so. He has noticed maroon stools. In the emergency room, he was now found to have a hemoglobin of 5.8, heme-positive stool and is being admitted for management of GI blood loss anemia with transfusion and now he will require endoscopy, which he agrees to. PAST MEDICAL HISTORY: Lung cancer, diabetes, history of CAD, hypertension, hyperlipidemia, bradycardia when he got IV labetalol twice in the last admission, recent rib fractures requiring a chest tube one month ago, and GI blood loss anemia as described above. FAMILY HISTORY: Heart disease runs in the family. SOCIAL HISTORY: He lives with his in [place], he has not smoked cigarettes in 30 years, drinks rare alcohol, no illicit drug use history. REVIEW OF SYSTEMS: A comprehensive review of systems was performed and pertinent positives are listed, the rest are negative. PHYSICAL EXAMINATION: GENERAL: Elderly white male. He is in mild respiratory distress at rest with talking. He is very pale. He has male pattern baldness. VITAL SIGNS: Blood pressure 130/80, heart rate 95 in sinus rhythm, but he was tachycardic on presentation at 127 in sinus rhythm, room air saturation 95%. HEENT: Moist oral mucosa. Good dentition and pallor. NECK: Without JVD in a vertical position. CHEST: Clear at the anterior bases. HEART: 2/6 systolic murmur heard throughout the precordium. There is no gallop or RV heave. ABDOMEN: Soft with positive bowel sounds, nontender. No organomegaly. EXTREMITIES: No clubbing, cyanosis or edema. NEUROLOGIC: Grossly intact. LABORATORY DATA: Normal electrolytes, BUN 27, creatinine 0.7. Normal liver tests. BNP normal at 28. White blood count 7.8, hemoglobin 5.8, platelet count normal at 159. INR 1.3. Urinalysis unremarkable. IMAGING: Chest x-ray, right-sided chest port is present, a mediastinal mass is noted, and there is no consolidation or pulmonary edema. There is a trace pleural effusion on the right. EKG: Sinus tachycardia at a rate of 115, left atrial enlargement, early R/S transition and these are old findings compared to his 10/25/2019 EKG. IMPRESSION: 1. Gastrointestinal blood loss anemia. 2. Continued nursing home antiplatelet use. 3. History of gastrointestinal bleed one week ago. 4. History of coronary artery disease. 5. Diabetes Mellitus, type 2. 6. Hypertension. 7. Hyperlipidemia. 8. Metastatic lung cancer. PLAN: Admit the patient on telemetry. Begin blood transfusion, and 1 U was started in the ER, continue with a second unit here. Stop the aspirin. Obtain general surgery consult for an EGD and colonoscopy that the patient agrees to now. Follow his H and H every 12 hours, transfuse if under 7 or if still symptomatic. Use Lasix between blood transfusions due to his dyspnea. Continue DM management, when a diet is started with ss Insulin coverage. CODE STATUS: FULL CODE. DEEP VENOUS THROMBOSIS PROPHYLAXIS: SCDs. ATTESTATION: The patient is expected to be discharged or transferred to another facility within 96 hours: Yes. TD: 11/05/2019 13:26 [facility]
[2019-11-05] MEDS: PANTOPRAZOLE 40 MG VIAL IVP SCH ×2 (14:51→22:00)
--- NOTE | 2019-11-05 15:29 | PROCEDURE REPORT ---
Hospitalist Procedure Note - Procedure Note Procedure Note: EGD: nl; plan colonoscopy in am tomorrow after bowel prep today.
[2019-11-05] MEDS: SODIUM CHLORIDE FLUSH 0.9% 10 ML SYRINGE IVP SCH (17:56)
--- NOTE | 2019-11-05 18:09 | Nuclear Medicine Report ---
Reason: Lower GI bleed Procedure Date: 11/05/2019 Accession Number: [id number] / [id number] Procedure: NM - GI Bleed/Tagged RBC CPT Code: Final Report FULL RESULT: EXAM: GASTROINTESTINAL BLEED LOCALIZATION STUDY WITH VASCULAR FLOW STUDY EXAM DATE: 11/05/2019 05:25 PM. CLINICAL HISTORY: Lower GI bleed. COMPARISON: PET/CT SKULL BASE TO MID THIGH 11/04/2019 12:49 PM. PET/CT SKULL BASE TO M 11/04/2019 12:08 PM. ABDOMEN/PELVIS W/ 10/25/2019 6:05 AM. TECHNIQUE: The patient's own red blood cells were labeled with 27.3 mCi Tc-99m pertechnetate according to department protocol. Following the administration of the radiolabeled red blood cells, dynamic flow images were acquired for the initial 2 minutes. Next, dynamic gamma camera imaging for a total of 60 minutes post injection was acquired from the anterior projection. Postvoid images were also acquired. FINDINGS: There appears to be abnormal activity in the region of the rectum or distal sigmoid colon on initial images acquired. The amount of activity decreases after the patient's bowel movement. Per report, the patient had a bloody bowel movement with associated radioactivity. Physiological uptake in vasculature, spleen, liver, and bladder. IMPRESSION: Positive large bowel hemorrhage in the region of the rectum or distal sigmoid colon. Significant bladder activity noted. RADIA
[2019-11-05] MEDS: SODIUM/POTASSIUM/MAG SULFATES 354 ML PREP KIT PO SCH (19:33)
[2019-11-05 21:25] LABS: HGB - HEMOGLOBIN 8.7 g/dL (14.0-18.0)
[2019-11-06] MEDS: SODIUM CHLORIDE FLUSH 0.9% 10 ML SYRINGE IVP SCH ×3 (01:11→16:46)
[2019-11-06] MEDS: SODIUM/POTASSIUM/MAG SULFATES 354 ML PREP KIT PO SCH (05:21)
[2019-11-06 05:29] LABS: BASOPHILS % (AUTO) 0.4 %; EOSINOPHILS % (AUTO) 0.3 %; HGB - HEMOGLOBIN 7.8 g/dL (14.0-18.0); LYMPHOCYTES # (AUTO) 1.2 10^3/uL (1.5-3.5); LYMPHOCYTES % (AUTO) 11.7 %; MEAN CORPUSCULAR HEMOGLOBIN 30.4 pg (27.0-31.0); MEAN CORPUSCULAR HGB CONC 32.2 g/dL (32.0-36.0); MEAN CORPUSCULAR VOLUME 94.2 fL (80.0-94.0); MEAN PLATELET VOLUME 9.6 fL (7.4-11.4); MONOCYTES # (AUTO) 0.8 10^3/uL (0.0-1.0); MONOCYTES % (AUTO) 7.6 %; NEUTROPHILS # (AUTO) 7.9 10^3/uL (1.5-6.6); NEUTROPHILS % (AUTO) 79.4 %; PLT - PLATELET COUNT 124 10^3/uL (130-450); RED BLOOD COUNT 2.57 10^6/uL (4.70-6.10); RED CELL DISTRIBUTION WIDTH 23.9 % (12.0-15.0); WHITE BLOOD COUNT 9.9 x10^3/uL (4.8-10.8)
[2019-11-06 05:38] LABS: CALCIUM 7.8 mg/dL (8.5-10.3); CREATININE 0.4 mg/dL (0.6-1.2)
[2019-11-06 06:21] LABS: PLATELET ESTIMATE, MANUAL NORMAL (130-450,000) (NORMAL)
--- NOTE | 2019-11-06 07:31 | PROVIDER PROGRESS NOTE ---
Assessment/Plan - Problem List (1) GI bleed Qualifiers: GI bleed type/associated pathology: unspecified gastrointestinal hemorrhage type Qualified Code(s): K92.2 - Gastrointestinal hemorrhage, unspecified Assessment/Plan: Clinically resolving; appears lower GI in etiology with neg EGD and tagged RBC scan suspicious for bleeding site in distal sigmoid or rectum. This suggests bleeding is most likely diverticular in nature given "neg" colonoscopy one year ago and diverticulosis noted on recent CT scan. PLan: colonoscopy today with therapy if indicated. PAR conf with patient and consent obtained. - Current Meds Current Meds: Current Medications Generic Name Dose Route Start Last Admin Trade Name Freq PRN Reason Stop Dose Admin Pantoprazole Sodium 40 mg 11/05/19 13:30 11/05/19 22:00 Protonix IVP 40 mg BID KHUSHI Administration Sodium Chloride 10 ml 11/05/19 10:24 11/05/19 22:00 Normal Saline Flush 0.9% IVP 10 ml PRN PRN Administration NEEDED PER PROVIDER ORDERS Sodium Chloride 10 ml 11/05/19 17:00 11/06/19 01:11 Normal Saline Flush 0.9% IVP 10 ml 0100,0900,1700 KHUSHI Administration - Lab Result Lab results reviewed: Yes Fish Bone Diagrams: 11/06/19 05:16 11/06/19 05:16 - Diagnostic Imaging Results Diagnostic Imaging Results: Final report reviewed, Read independently Diagnostic Imaging Results Comments: tagged RBC scan yest shows pooling of activity in lower sigmoid colon and rectum, suggesting site of bleeding is in this area or just proximal. - Additional Planning Condition/Complexity: Stable My Orders: My Active Orders 11/06/19 00:01 NPO except Meds at Midnight [DIET] Plan Discussed with:: Patient, Other (hospitalists) Time Spent: 15-30 minutes Subjective - Subjective Patient Reports: Resting Comfortably, No Complaints (tolerated bowel prep well; most recent bm clear yellow. Prior BMS overnight described as red or black.) Objective Vital Signs: Vital Signs - 24 hr 11/05/19 11/05/19 11/05/19 09:02 09:36 09:54 Temperature 36.5 C Heart Rate 127 H 101 H 98 Heart Rate [ Brachial] Respiratory 24 17 18 Rate Blood Pressure 149/86 H 133/68 H 144/81 H Blood Pressure [Right Brachial artery] O2 Saturation 100 100 100 11/05/19 11/05/19 11/05/19 10:06 10:30 11:00 Temperature Heart Rate 99 96 101 H Heart Rate [ Brachial] Respiratory 19 15 17 Rate Blood Pressure 135/81 H 151/86 H 151/83 H Blood Pressure [Right Brachial artery] O2 Saturation 100 100 100 11/05/19 11/05/19 11/05/19 11:20 11:50 12:10 Temperature 36.4 C L 36.4 C L 36.5 C Heart Rate 95 91 Heart Rate [ 99 Brachial] Respiratory 18 20 18 Rate Blood Pressure 131/82 H 148/79 H Blood Pressure 152/90 H [Right Brachial artery] O2 Saturation 100 11/05/19 11/05/19 11/05/19 13:40 14:10 14:15 Temperature 36.5 C 36.6 C 36.6 C Heart Rate 93 Heart Rate [ 89 91 Brachial] Respiratory 18 16 16 Rate Blood Pressure 163/76 H Blood Pressure 136/75 H 142/65 H [Right Brachial artery] O2 Saturation 98 97 11/05/19 11/05/19 11/05/19 14:20 14:50 17:25 Temperature 36.6 C 37.0 C 36.7 C Heart Rate Heart Rate [ 94 92 95 Brachial] Respiratory 16 16 18 Rate Blood Pressure Blood Pressure 138/78 H 154/82 H 160/73 H [Right Brachial artery] O2 Saturation 98 98 99 11/05/19 11/05/19 11/05/19 17:46 18:39 20:42 Temperature 36.3 C L 36.7 C 36.5 C Heart Rate 96 88 98 Heart Rate [ Brachial] Respiratory 18 19 18 Rate Blood Pressure 160/73 H 148/67 H 152/98 H Blood Pressure [Right Brachial artery] O2 Saturation 11/06/19 11/06/19 00:00 04:30 Temperature 36.9 C 37.2 C Heart Rate Heart Rate [ 92 89 Brachial] Respiratory 20 20 Rate Blood Pressure Blood Pressure 139/63 H 138/68 H [Right Brachial artery] O2 Saturation 100 96 Oxygen O2 Source [With Activity] Room air O2 Source Room air Oxygen Flow Rate 2 I&O (Last 24 Hrs): Intake and Output Totals x24h 11/04/19 11/05/19 11/06/19 23:59 23:59 23:59 Intake Total 2850 480 Output Total 251 Balance 2599 480 General: Alert, Oriented x3, Cooperative, No acute distress Abdomen: Soft, No tenderness, No hepatospenomegaly, No masses - Results Results: Laboratory Results WBC 9.9 x10^3/uL (4.8-10.8) 11/06/19 05:16 RBC 2.57 10^6/uL (4.70-6.10) L 11/06/19 05:16 Hgb 7.8 g/dL (14.0-18.0) L 11/06/19 05:16 Hct 24.2 % (42.0-52.0) L 11/06/19 05:16 MCV 94.2 fL (80.0-94.0) H 11/06/19 05:16 MCH 30.4 pg (27.0-31.0) 11/06/19 05:16 MCHC 32.2 g/dL (32.0-36.0) 11/06/19 05:16 RDW 23.9 % (12.0-15.0) H 11/06/19 05:16 Plt Count 124 10^3/uL (130-450) L 11/06/19 05:16 MPV 9.6 fL (7.4-11.4) 11/06/19 05:16 Neut # (Auto) 7.9 10^3/uL (1.5-6.6) H 11/06/19 05:16 Lymph # (Auto) 1.2 10^3/uL (1.5-3.5) L 11/06/19 05:16 [place] # (Auto) 0.8 10^3/uL (0.0-1.0) 11/06/19 05:16 Eos # (Auto) 0.0 10^3/uL (0.0-0.7) 11/06/19 05:16 Baso # (Auto) 0.0 10^3/uL (0.0-0.1) 11/06/19 05:16 Absolute Nucleated RBC 0.00 x10^3/uL 11/06/19 05:16 Nucleated RBC % 0.0 /100WBC 11/06/19 05:16 Manual Slide Review Indicated 11/06/19 05:16 WBC Morphology NORMAL APPEARANCE (NORMAL) 11/05/19 09:23 Platelet Estimate NORMAL (130-450,000) (NORMAL) 11/06/19 05:16 Platelet Morphology NORMAL APPEARANCE (NORMAL) 11/05/19 09:23 RBC Morph Micro Appear 2+ ANISOCYTOSIS (NORMAL) 2+ HYPOCHROMASIA (NORMAL) 1+ POLYCHROMASIA (NORMAL) OVALOCYTES (NORMAL) 11/05/19 09:23 RBC Morph Micro Appear 2+ ANISOCYTOSIS (NORMAL) 2+ HYPOCHROMASIA (NORMAL) 1+ POLYCHROMASIA (NORMAL) OVALOCYTES (NORMAL) 11/05/19 09:23 RBC Morph Micro Appear 2+ ANISOCYTOSIS (NORMAL) 2+ HYPOCHROMASIA (NORMAL) 1+ POLYCHROMASIA (NORMAL) OVALOCYTES (NORMAL) 11/05/19 09:23 RBC Morph Micro Appear 1+ ANISOCYTOSIS (NORMAL) 2+ HYPOCHROMASIA (NORMAL) 1+ POLYCHROMASIA (NORMAL) 1+ OVALOCYTES (NORMAL) 11/06/19 05:16 RBC Morph Micro Appear 1+ ANISOCYTOSIS (NORMAL) 2+ HYPOCHROMASIA (NORMAL) 1+ POLYCHROMASIA (NORMAL) 1+ OVALOCYTES (NORMAL) 11/06/19 05:16 RBC Morph Micro Appear 1+ ANISOCYTOSIS (NORMAL) 2+ HYPOCHROMASIA (NORMAL) 1+ POLYCHROMASIA (NORMAL) 1+ OVALOCYTES (NORMAL) 11/06/19 05:16 RBC Morph Micro Appear 1+ ANISOCYTOSIS (NORMAL) 2+ HYPOCHROMASIA (NORMAL) 1+ POLYCHROMASIA (NORMAL) 1+ OVALOCYTES (NORMAL) 11/06/19 05:16 PT 15.1 secs (9.9-12.6) H 11/05/19 09:23 INR 1.3 (0.8-1.2) H 11/05/19 09:23 Sodium 139 mmol/L (135-145) 11/06/19 05:16 Potassium 3.3 mmol/L (3.5-5.0) L 11/06/19 05:16 Chloride 102 mmol/L (101-111) 11/06/19 05:16 Carbon Dioxide 29 mmol/L (21-32) 11/06/19 05:16 Anion Gap 8.0 (6-13) 11/06/19 05:16 BUN 15 mg/dL (6-20) 11/06/19 05:16 Creatinine 0.4 mg/dL (0.6-1.2) L 11/06/19 05:16 Estimated GFR (MDRD) 211 (>89) 11/06/19 05:16 Glucose 91 mg/dL (70-100) 11/06/19 05:16 Calcium 7.8 mg/dL (8.5-10.3) L 11/06/19 05:16 Total Bilirubin 0.4 mg/dL (0.2-1.0) 11/05/19 09:23 AST 16 IU/L (10-42) 11/05/19 09:23 ALT 10 IU/L (10-60) 11/05/19 09:23 Alkaline Phosphatase 37 IU/L (42-121) L 11/05/19 09:23 B-Natriuretic Peptide 28 pg/mL (5-100) 11/05/19 09:23 Total Protein 5.3 g/dL (6.7-8.2) L 11/05/19 09:23 Albumin 3.0 g/dL (3.2-5.5) L 11/05/19 09:23 Globulin 2.3 g/dL (2.1-4.2) 11/05/19 09:23 Albumin/Globulin Ratio 1.3 (1.0-2.2) 11/05/19 09:23 Lipase 27 U/L (22-51) 11/05/19 09:23 Urine Color LT. YELLOW 11/05/19 10:25 Urine Clarity CLEAR (CLEAR) 11/05/19 10:25 Urine pH 6.0 PH (5.0-7.5) 11/05/19 10:25 Ur Specific [place] 1.010 (1.002-1.030) 11/05/19 10:25 Urine Protein NEGATIVE mg/dL (NEGATIVE) 11/05/19 10:25 Urine Glucose (UA) NEGATIVE mg/dL (NEGATIVE) 11/05/19 10:25 Urine Ketones NEGATIVE mg/dL (NEGATIVE) 11/05/19 10:25 Urine Occult Blood NEGATIVE (NEGATIVE) 11/05/19 10:25 Urine Nitrite NEGATIVE (NEGATIVE) 11/05/19 10:25 Urine Bilirubin NEGATIVE (NEGATIVE) 11/05/19 10:25 Urine Urobilinogen 0.2 (NORMAL) E.U./dL (NORMAL) 11/05/19 10:25 Ur Leukocyte Esterase NEGATIVE (NEGATIVE) 11/05/19 10:25 Ur Microscopic Review NOT INDICATED 11/05/19 10:25 Urine Culture Comments NOT INDICATED 11/05/19 10:25 Blood Type O POSITIVE 11/05/19 09:12 Antibody Screen NEGATIVE 11/05/19 09:12 Crossmatch IS Only See Detail 11/05/19 09:12 Most recent H/H after 2 units of PRBCs. - Procedures Procedures: Procedures EXCISION OF RIGHT KNEE JOINT, PERC ENDO APPROACH (09/03/15) ABX Reporting Has patient been on IV antibiotics over the past 48 hours?: No
[2019-11-06] MEDS ORDERED: PROPOFOL 200 MG/20 ML VIAL IVP ONE (08:00)
[2019-11-06] MEDS ORDERED: GLYCOPYRROLATE 1 MG/5 ML VIAL IVP ONE (08:00)
[2019-11-06] MEDS ORDERED: KETAMINE 500 MG/10 ML VIAL IVP ONE (08:00)
[2019-11-06] MEDS ORDERED: MIDAZOLAM 2 MG/2 ML VIAL IVP ONE (08:00)
[2019-11-06] MEDS ORDERED: LACTATED RINGERS 1,000 ML IV ONE (08:20)
--- NOTE | 2019-11-06 08:56 | PROCEDURE REPORT ---
Hospitalist Procedure Note - Procedure Note Procedure Note: Colonoscopy: moderate pandiverticulosis, nonbleeding mild diffuse mucosal edema/friability of unclear etiology; random biopsies of right, left colon and rectum obtained. no active bleeding was present and no suspected bleeding site was indentified. suspect bleeding was diverticular in nature Rec: ok to resume liquid diet today, continue observation; home tomorrow if remains stable avoid NSAIDs. if continues to rebleed, may need partial left colectomy.
--- NOTE | 2019-11-06 09:26 | PROVIDER PROGRESS NOTE ---
Assessment/Plan - Problem List (1) Anemia due to GI blood loss Assessment/Plan: Patient required transfusions this admission which have helped his energy. Continue to follow CBC every 6-12 hours, transfuse if there following still. Patient did have a bloody bowel movement after the colonoscopy today, this may have been due to biopsies if there are biopsies done. He will now be advised to stay off of aspirin for 1 month. I reviewed this with the patient and the was at the bedside today (2) Diverticula of colon Assessment/Plan: Yesterday the red blood cell tagged nuclear scan revealed the source to be at the sigmoid colon. Dr. Feliz did the colonoscopy today and did find diverticula in this region. I reviewed the proper diet for this with the patient and the is at the bedside. The requested a visit from RD which I will order. I reviewed the overall management of believing diverticular disease. (3) Hypokalemia Assessment/Plan: Replace. Follow BMP daily (4) Diabetes mellitus Assessment/Plan: Advance his diet to a carb controlled, low fiber diet. Restart his oral agent and sliding scale insulin (5) Hx of coronary artery disease Assessment/Plan: Stable , but ASA will be on hold for a month or so. Continue his cholesterol nanagement. (6) Hypertension Qualifiers: Hypertension type: essential hypertension Qualified Code(s): I10 - Essential (primary) hypertension Assessment/Plan: Resume BP meds, unless there is hypotension from bleeding - Current Meds Current Meds: Current Medications Generic Name Dose Route Start Last Admin Trade Name Freq PRN Reason Stop Dose Admin Sodium Chloride 10 ml 11/05/19 10:24 11/05/19 22:00 Normal Saline Flush 0.9% IVP 10 ml PRN PRN Administration NEEDED PER PROVIDER ORDERS Sodium Chloride 10 ml 11/05/19 17:00 11/06/19 01:11 Normal Saline Flush 0.9% IVP 10 ml 0100,0900,1700 KHUSHI Administration - Lab Result Fish Bone Diagrams: 11/06/19 13:51 11/06/19 05:16 - Additional Planning My Orders: My Active Orders 11/06/19 09:30 Fenofibrate Nanocrystallized [Tricor] 145 mg PO DAILY Pioglitazone HCl [Actos] 45 mg PO DAILY 11/06/19 10:00 Potassium Chloride/Water 10 mEq/100 mL q1h (Enter # of bags) Potassium Chlor 10 Meq/100 ml [Potassium Chloride] 10 meq in 100 ml IV Q1H 11/06/19 21:00 Ramipril [Ramipril] 10 mg PO BID Rosuvastatin Calcium [Crestor] 20 mg PO QPM 11/06/19 Dinner Carb-controlled Diet [DIET] 11/07/19 09:00 Ferrous Gluconate [Ferrous Gluconate] 240 mg PO DAILY Multivit-Mins/Iron/Folic/Lycop [Centrum Men's Tablet] 1 tab PO DAILY 11/05/19 10:24 Activity Orders [RC] Q2HR IO [RC] IOSHIFT Initiate Line Care Protocol [RC] QSHIFT Initiate Personal Care Protoco [RC] .protocol Oxygen Therapy [RC] Routine Telemetry- [RC] Q4HR Vital Signs [RC] 0800,1600,0000 Acetaminophen [Tylenol] 650 mg PO Q4HR PRN Sodium Chloride Flush 0.9% [Normal Saline Flush 0.9%] 10 ml IVP PRN PRN Code Status [OTHERS] Routine Condition of Patient [OTHERS] Routine DVT Prophylaxis [OTHERS] Routine 11/05/19 10:25 IV Insert [RC] .ONCE Incentive Spirometry - RT [RC] .TID SCDs [RC] QSHIFT 11/05/19 10:26 General Surgery Consult [CONS] Routine 11/05/19 13:05 Transfuse RBCs Leukoreduced [RC] .ONCE 11/05/19 17:00 Sodium Chloride Flush 0.9% [Normal Saline Flush 0.9%] 10 ml IVP 0100,0900,1700 Subjective - Subjective Patient Reports: Feeling Better, Resting Comfortably, Other (He had a bloody BM which he saved in the toilet bowl and showed me, following this morning's) Objective Vital Signs: Vital Signs - 24 hr 11/05/19 11/05/19 11/05/19 09:36 09:54 10:06 Temperature Heart Rate 101 H 98 99 Heart Rate [ Brachial] Respiratory 17 18 19 Rate Blood Pressure 133/68 H 144/81 H 135/81 H Blood Pressure [Right Brachial artery] O2 Saturation 100 100 100 11/05/19 11/05/19 11/05/19 10:30 11:00 11:20 Temperature 36.4 C L Heart Rate 96 101 H Heart Rate [ 99 Brachial] Respiratory 15 17 18 Rate Blood Pressure 151/86 H 151/83 H Blood Pressure 152/90 H [Right Brachial artery] O2 Saturation 100 100 100 11/05/19 11/05/19 11/05/19 11:50 12:10 13:40 Temperature 36.4 C L 36.5 C 36.5 C Heart Rate 95 91 93 Heart Rate [ Brachial] Respiratory 20 18 18 Rate Blood Pressure 131/82 H 148/79 H 163/76 H Blood Pressure [Right Brachial artery] O2 Saturation 11/05/19 11/05/19 11/05/19 14:10 14:15 14:20 Temperature 36.6 C 36.6 C 36.6 C Heart Rate Heart Rate [ 89 91 94 Brachial] Respiratory 16 16 16 Rate Blood Pressure Blood Pressure 136/75 H 142/65 H 138/78 H [Right Brachial artery] O2 Saturation 98 97 98 11/05/19 11/05/19 11/05/19 14:50 17:25 17:46 Temperature 37.0 C 36.7 C 36.3 C L Heart Rate 96 Heart Rate [ 92 95 Brachial] Respiratory 16 18 18 Rate Blood Pressure 160/73 H Blood Pressure 154/82 H 160/73 H [Right Brachial artery] O2 Saturation 98 99 11/05/19 11/05/19 11/06/19 18:39 20:42 00:00 Temperature 36.7 C 36.5 C 36.9 C Heart Rate 88 98 Heart Rate [ 92 Brachial] Respiratory 19 18 20 Rate Blood Pressure 148/67 H 152/98 H Blood Pressure 139/63 H [Right Brachial artery] O2 Saturation 100 11/06/19 11/06/19 04:30 08:00 Temperature 37.2 C 37.3 C Heart Rate Heart Rate [ 89 94 Brachial] Respiratory 20 16 Rate Blood Pressure Blood Pressure 138/68 H 128/64 [Right Brachial artery] O2 Saturation 96 95 Oxygen O2 Source [With Activity] Room air O2 Source Room air Oxygen Flow Rate 2 I&O (Last 24 Hrs): Intake and Output Totals x24h 11/04/19 11/05/19 11/06/19 23:59 23:59 23:59 Intake Total 2850 480 Output Total 251 Balance 2599 480 General: Alert, Oriented x3, Other (He is shivering.) HEENT: Mucous membr. moist/pink, Other (Male pattern baldness. PAle.) Neck: Supple Neuro: Alert, Non Focal Cardiovascular: Regular rate, No murmurs Respiratory: No respiratory distress, Breath sounds nml Abdomen: Normal bowel sounds, Soft Extremities: No edema - Results Results: Laboratory Results WBC 9.9 x10^3/uL (4.8-10.8) 11/06/19 05:16 RBC 2.57 10^6/uL (4.70-6.10) L 11/06/19 05:16 Hgb 7.8 g/dL (14.0-18.0) L 11/06/19 05:16 Hct 24.2 % (42.0-52.0) L 11/06/19 05:16 MCV 94.2 fL (80.0-94.0) H 11/06/19 05:16 MCH 30.4 pg (27.0-31.0) 11/06/19 05:16 MCHC 32.2 g/dL (32.0-36.0) 11/06/19 05:16 RDW 23.9 % (12.0-15.0) H 11/06/19 05:16 Plt Count 124 10^3/uL (130-450) L 11/06/19 05:16 MPV 9.6 fL (7.4-11.4) 11/06/19 05:16 Neut # (Auto) 7.9 10^3/uL (1.5-6.6) H 11/06/19 05:16 Lymph # (Auto) 1.2 10^3/uL (1.5-3.5) L 11/06/19 05:16 [place] # (Auto) 0.8 10^3/uL (0.0-1.0) 11/06/19 05:16 Eos # (Auto) 0.0 10^3/uL (0.0-0.7) 11/06/19 05:16 Baso # (Auto) 0.0 10^3/uL (0.0-0.1) 11/06/19 05:16 Absolute Nucleated RBC 0.00 x10^3/uL 11/06/19 05:16 Nucleated RBC % 0.0 /100WBC 11/06/19 05:16 Manual Slide Review Indicated 11/06/19 05:16 WBC Morphology NORMAL APPEARANCE (NORMAL) 12/31/19 09:23 Platelet Estimate NORMAL (130-450,000) (NORMAL) 11/06/19 05:16 Platelet Morphology NORMAL APPEARANCE (NORMAL) 11/05/19 09:23 RBC Morph Micro Appear 2+ ANISOCYTOSIS (NORMAL) 2+ HYPOCHROMASIA (NORMAL) 1+ POLYCHROMASIA (NORMAL) OVALOCYTES (NORMAL) 11/05/19 09:23 RBC Morph Micro Appear 2+ ANISOCYTOSIS (NORMAL) 2+ HYPOCHROMASIA (NORMAL) 1+ POLYCHROMASIA (NORMAL) OVALOCYTES (NORMAL) 11/05/19 09:23 RBC Morph Micro Appear 2+ ANISOCYTOSIS (NORMAL) 2+ HYPOCHROMASIA (NORMAL) 1+ POLYCHROMASIA (NORMAL) OVALOCYTES (NORMAL) 11/05/19 09:23 RBC Morph Micro Appear 1+ ANISOCYTOSIS (NORMAL) 2+ HYPOCHROMASIA (NORMAL) 1+ POLYCHROMASIA (NORMAL) 1+ OVALOCYTES (NORMAL) 11/06/19 05:16 RBC Morph Micro Appear 1+ ANISOCYTOSIS (NORMAL) 2+ HYPOCHROMASIA (NORMAL) 1+ POLYCHROMASIA (NORMAL) 1+ OVALOCYTES (NORMAL) 11/06/19 05:16 RBC Morph Micro Appear 1+ ANISOCYTOSIS (NORMAL) 2+ HYPOCHROMASIA (NORMAL) 1+ POLYCHROMASIA (NORMAL) 1+ OVALOCYTES (NORMAL) 11/06/19 05:16 RBC Morph Micro Appear 1+ ANISOCYTOSIS (NORMAL) 2+ HYPOCHROMASIA (NORMAL) 1+ POLYCHROMASIA (NORMAL) 1+ OVALOCYTES (NORMAL) 11/06/19 05:16 PT 15.1 secs (9.9-12.6) H 11/05/19 09:23 INR 1.3 (0.8-1.2) H 11/05/19 09:23 Sodium 139 mmol/L (135-145) 11/06/19 05:16 Potassium 3.3 mmol/L (3.5-5.0) L 11/06/19 05:16 Chloride 102 mmol/L (101-111) 11/06/19 05:16 Carbon Dioxide 29 mmol/L (21-32) 11/06/19 05:16 Anion Gap 8.0 (6-13) 11/06/19 05:16 BUN 15 mg/dL (6-20) 11/06/19 05:16 Creatinine 0.4 mg/dL (0.6-1.2) L 11/06/19 05:16 Estimated GFR (MDRD) 211 (>89) 11/06/19 05:16 Glucose 91 mg/dL (70-100) 11/06/19 05:16 POC Whole Bld Glucose 88 mg/dL (70 - 100) 11/06/19 07:54 Calcium 7.8 mg/dL (8.5-10.3) L 11/06/19 05:16 Total Bilirubin 0.4 mg/dL (0.2-1.0) 11/05/19 09:23 AST 16 IU/L (10-42) 11/05/19 09:23 ALT 10 IU/L (10-60) 11/05/19 09:23 Alkaline Phosphatase 37 IU/L (42-121) L 11/05/19 09:23 B-Natriuretic Peptide 28 pg/mL (5-100) 11/05/19 09:23 Total Protein 5.3 g/dL (6.7-8.2) L 11/05/19 09:23 Albumin 3.0 g/dL (3.2-5.5) L 11/05/19 09:23 Globulin 2.3 g/dL (2.1-4.2) 11/05/19 09:23 Albumin/Globulin Ratio 1.3 (1.0-2.2) 11/05/19 09:23 Lipase 27 U/L (22-51) 11/05/19 09:23 Urine Color LT. YELLOW 11/05/19 10:25 Urine Clarity CLEAR (CLEAR) 11/05/19 10:25 Urine pH 6.0 PH (5.0-7.5) 11/05/19 10:25 Ur Specific [place] 1.010 (1.002-1.030) 11/05/19 10:25 Urine Protein NEGATIVE mg/dL (NEGATIVE) 11/05/19 10:25 Urine Glucose (UA) NEGATIVE mg/dL (NEGATIVE) 11/05/19 10:25 Urine Ketones NEGATIVE mg/dL (NEGATIVE) 11/05/19 10:25 Urine Occult Blood NEGATIVE (NEGATIVE) 11/05/19 10:25 Urine Nitrite NEGATIVE (NEGATIVE) 11/05/19 10:25 Urine Bilirubin NEGATIVE (NEGATIVE) 11/05/19 10:25 Urine Urobilinogen 0.2 (NORMAL) E.U./dL (NORMAL) 11/05/19 10:25 Ur Leukocyte Esterase NEGATIVE (NEGATIVE) 11/05/19 10:25 Ur Microscopic Review NOT INDICATED 11/05/19 10:25 Urine Culture Comments NOT INDICATED 11/05/19 10:25 Blood Type O POSITIVE 11/05/19 09:12 Antibody Screen NEGATIVE 11/05/19 09:12 Crossmatch IS Only See Detail 11/05/19 09:12 - Procedures Procedures: Procedures EXCISION OF RIGHT KNEE JOINT, PERC ENDO APPROACH (09/03/15)
[2019-11-06] MEDS: SODIUM CHLORIDE FLUSH 0.9% 10 ML SYRINGE IVP PRN (09:49)
[2019-11-06] MEDS: FENOFIBRATE 48 MG TABLET PO SCH (09:49)
[2019-11-06] MEDS: POTASSIUM CHLOR 10 MEQ/100 ML 10 MEQ/100 ML BAG IV SCH ×2 (09:49→11:12)
[2019-11-06] MEDS: PIOGLITAZONE HCL 45 MG PO SCH (09:50)
[2019-11-06] MEDS ORDERED: oxyCODONE 5 MG TABLET PO PRN (12:01)
[2019-11-06] MEDS: INSULIN ASPART 300 UNIT/3 ML PEN SUBQ SCH ×3 (12:36→22:26)
[2019-11-06 14:11] LABS: HGB - HEMOGLOBIN 6.4 g/dL (14.0-18.0)
[2019-11-06] MEDS: PANTOPRAZOLE 40 MG TABLET PO SCH (16:45)
[2019-11-06] MEDS ORDERED: ATORVASTATIN 40 MG TABLET PO SCH (21:00)
[2019-11-06] MEDS ORDERED: SODIUM CHLORIDE 0.9% 500 ML ONE (22:22)
[2019-11-06] MEDS: ACETAMINOPHEN 325 MG TABLET PO PRN (22:25)
[2019-11-06] MEDS: lisinopriL 20 MG TABLET PO SCH (22:25)
[2019-11-07 05:56] LABS: BASOPHILS % (AUTO) 0.4 %; EOSINOPHILS % (AUTO) 0.4 %; HGB - HEMOGLOBIN 10.6 g/dL (14.0-18.0); LYMPHOCYTES # (AUTO) 1.3 10^3/uL (1.5-3.5); LYMPHOCYTES % (AUTO) 14.3 %; MEAN CORPUSCULAR HEMOGLOBIN 30.8 pg (27.0-31.0); MEAN CORPUSCULAR HGB CONC 31.9 g/dL (32.0-36.0); MEAN CORPUSCULAR VOLUME 96.5 fL (80.0-94.0); MONOCYTES # (AUTO) 0.9 10^3/uL (0.0-1.0); MONOCYTES % (AUTO) 9.1 %; NEUTROPHILS # (AUTO) 7.1 10^3/uL (1.5-6.6); NEUTROPHILS % (AUTO) 75.4 %; PLT - PLATELET COUNT 119 10^3/uL (130-450); RED BLOOD COUNT 3.44 10^6/uL (4.70-6.10); RED CELL DISTRIBUTION WIDTH 22.5 % (12.0-15.0); WHITE BLOOD COUNT 9.4 x10^3/uL (4.8-10.8)
[2019-11-07 06:04] LABS: CALCIUM 7.9 mg/dL (8.5-10.3); CREATININE 0.5 mg/dL (0.6-1.2)
[2019-11-07 06:31] LABS: PLATELET ESTIMATE, MANUAL DECREASED (<130,000) (NORMAL)
[2019-11-07] MEDS: SODIUM CHLORIDE FLUSH 0.9% 10 ML SYRINGE IVP SCH ×3 (07:05→10:37)
[2019-11-07] MEDS: ACETAMINOPHEN 325 MG TABLET PO PRN (07:27)
[2019-11-07] MEDS: PANTOPRAZOLE 40 MG TABLET PO SCH (07:28)
--- NOTE | 2019-11-07 07:33 | PROVIDER PROGRESS NOTE ---
Assessment/Plan - Problem List (1) GI bleed Qualifiers: GI bleed type/associated pathology: diverticulosis Qualified Code(s): K57.91 - Diverticulosis of intestine, part unspecified, without perforation or abscess with bleeding Assessment/Plan: clinically resolved; minor rectal bleeding likely s/p colonoscopic biopsies. Rec: OK for d/c from surgical standpoint. Avoid NSAIDs. Discussed options in detail if rebleeding occurs: interventional radiology with angiographic embolization vs partial/left colectomy vs transfusion only; doubt repeat colon oscopy would be able to successfully control diverticular bleeding. My rec would be to try angiographic embolization given his overall health status. - Current Meds Current Meds: Current Medications Generic Name Dose Route Start Last Admin Trade Name Freq PRN Reason Stop Dose Admin Acetaminophen 650 mg 11/05/19 10:24 11/07/19 07:27 Tylenol PO 650 mg Q4HR PRN Administration Pain 1 to 4 Atorvastatin Calcium 40 mg 11/06/19 21:00 11/06/19 22:25 Lipitor PO 40 mg QPM KHUSHI Administration Fenofibrate 144 mg 11/06/19 09:30 11/06/19 09:49 Tricor PO 144 mg DAILY KHUSHI Administration Insulin Aspart 1 - 5 unit 11/06/19 12:00 11/06/19 22:26 Novolog SUBQ Not Given 0800,1200,1700,2100 [facility] Protocol Lisinopril 40 mg 11/06/19 21:00 11/06/19 22:25 Zestril PO 40 mg BID KHUSHI Administration Non-Formulary Medication 45 mg 11/06/19 09:30 11/06/19 09:50 Pioglitazone Hcl [Actos] PO Not Given DAILY KHUSHI Pantoprazole Sodium 40 mg 11/06/19 16:00 11/07/19 07:28 Protonix PO 40 mg 0700,1600 KHUSHI Administration Sodium Chloride 10 ml 11/05/19 10:24 11/06/19 09:49 Normal Saline Flush 0.9% IVP 10 ml PRN PRN Administration NEEDED PER PROVIDER ORDERS Sodium Chloride 10 ml 11/05/19 17:00 11/07/19 07:05 Normal Saline Flush 0.9% IVP Not Given 0100,0900,1700 KHUSHI - Lab Result Fish Bone Diagrams: 11/07/19 05:23 11/07/19 05:23 Subjective - Subjective Patient Reports: Resting Comfortably, Abdominal Pain (mild lower abd cramps; passed bloody stool immediately following colonoscopy, then non bloody stool thereafter last night; no bm's since) Objective Vital Signs: Vital Signs - 24 hr 11/06/19 11/06/19 11/06/19 08:00 13:00 16:05 Temperature 37.3 C 36.9 C 37.4 C Heart Rate 91 Heart Rate [ 94 81 Brachial] Respiratory 16 21 18 Rate Blood Pressure 166/70 H Blood Pressure 128/64 137/72 H [Right Brachial artery] O2 Saturation 95 96 11/06/19 11/06/19 11/06/19 16:20 19:10 19:13 Temperature 36.9 C 36.9 C 36.9 C Heart Rate 88 86 Heart Rate [ 87 Brachial] Respiratory 18 16 18 Rate Blood Pressure 151/81 H 152/79 H Blood Pressure 152/79 H [Right Brachial artery] O2 Saturation 98 11/06/19 11/06/19 11/06/19 22:29 23:04 23:25 Temperature 36.5 C 36.5 C 37 C Heart Rate 85 86 Heart Rate [ 85 Brachial] Respiratory 20 20 20 Rate Blood Pressure 153/80 H 141/75 H Blood Pressure 153/80 H [Right Brachial artery] O2 Saturation 11/06/19 11/07/19 11/07/19 23:39 02:01 02:05 Temperature 36.9 C 36.8 C 36.8 C Heart Rate 84 Heart Rate [ 84 84 Brachial] Respiratory 18 18 18 Rate Blood Pressure 124/72 Blood Pressure 142/71 H 124/72 [Right Brachial artery] O2 Saturation 97 93 11/07/19 05:25 Temperature 36.9 C Heart Rate Heart Rate [ 81 Brachial] Respiratory 18 Rate Blood Pressure Blood Pressure 148/87 H [Right Brachial artery] O2 Saturation 97 Oxygen O2 Source [With Activity] Room air O2 Source Nasal cannula Oxygen Flow Rate 2 I&O (Last 24 Hrs): Intake and Output Totals x24h 11/05/19 11/06/19 11/07/19 23:59 23:59 23:59 Intake Total 2850 1620 300 Output Total 251 Balance 2599 1620 300 General: Alert, Oriented x3, Cooperative Abdomen: Soft, No tenderness, No hepatospenomegaly, No masses - Results Results: Laboratory Results WBC 9.4 x10^3/uL (4.8-10.8) 11/07/19 05:23 RBC 3.44 10^6/uL (4.70-6.10) L 11/07/19 05:23 Hgb 10.6 g/dL (14.0-18.0) L 11/07/19 05:23 Hct 33.2 % (42.0-52.0) L 11/07/19 05:23 MCV 96.5 fL (80.0-94.0) H 11/07/19 05:23 MCH 30.8 pg (27.0-31.0) 11/07/19 05:23 MCHC 31.9 g/dL (32.0-36.0) L 11/07/19 05:23 RDW 22.5 % (12.0-15.0) H 11/07/19 05:23 Plt Count 119 10^3/uL (130-450) L 11/07/19 05:23 MPV 9.0 fL (7.4-11.4) 11/07/19 05:23 Neut # (Auto) 7.1 10^3/uL (1.5-6.6) H 11/07/19 05:23 Lymph # (Auto) 1.3 10^3/uL (1.5-3.5) L 11/07/19 05:23 Nolan # (Auto) 0.9 10^3/uL (0.0-1.0) 11/07/19 05:23 Eos # (Auto) 0.0 10^3/uL (0.0-0.7) 11/07/19 05:23 Baso # (Auto) 0.0 10^3/uL (0.0-0.1) 11/07/19 05:23 Absolute Nucleated RBC 0.00 x10^3/uL 11/07/19 05:23 Nucleated RBC % 0.0 /100WBC 11/07/19 05:23 Manual Slide Review Indicated 11/07/19 05:23 WBC Morphology NORMAL APPEARANCE (NORMAL) 11/05/19 09:23 Platelet Estimate DECREASED (<130,000) (NORMAL) 11/07/19 05:23 Platelet Morphology NORMAL APPEARANCE (NORMAL) 11/05/19 09:23 RBC Morph Micro Appear 2+ ANISOCYTOSIS (NORMAL) 2+ HYPOCHROMASIA (NORMAL) 1+ POLYCHROMASIA (NORMAL) OVALOCYTES (NORMAL) 11/05/19 09:23 RBC Morph Micro Appear 2+ ANISOCYTOSIS (NORMAL) 2+ HYPOCHROMASIA (NORMAL) 1+ POLYCHROMASIA (NORMAL) OVALOCYTES (NORMAL) 11/05/19 09:23 RBC Morph Micro Appear 1+ ANISOCYTOSIS (NORMAL) 2+ HYPOCHROMASIA (NORMAL) 1+ POLYCHROMASIA (NORMAL) 1+ OVALOCYTES (NORMAL) 11/06/19 05:16 RBC Morph Micro Appear 1+ ANISOCYTOSIS (NORMAL) 2+ HYPOCHROMASIA (NORMAL) 1+ POLYCHROMASIA (NORMAL) 1+ OVALOCYTES (NORMAL) 11/06/19 05:16 RBC Morph Micro Appear 1+ ANISOCYTOSIS (NORMAL) 2+ HYPOCHROMASIA (NORMAL) 1+ POLYCHROMASIA (NORMAL) 1+ OVALOCYTES (NORMAL) 11/06/19 05:16 RBC Morph Micro Appear 1+ ANISOCYTOSIS (NORMAL) 2+ HYPOCHROMASIA (NORMAL) 1+ POLYCHROMASIA (NORMAL) 1+ OVALOCYTES (NORMAL) 11/06/19 05:16 RBC Morph Micro Appear 1+ ANISOCYTOSIS (NORMAL) 1+ HYPOCHROMASIA (NORMAL) 1+ POLYCHROMASIA (NORMAL) 1+ OVALOCYTES (NORMAL) 11/07/19 05:23 RBC Morph Micro Appear 1+ ANISOCYTOSIS (NORMAL) 1+ HYPOCHROMASIA (NORMAL) 1+ POLYCHROMASIA (NORMAL) 1+ OVALOCYTES (NORMAL) 11/07/19 05:23 RBC Morph Micro Appear 1+ ANISOCYTOSIS (NORMAL) 1+ HYPOCHROMASIA (NORMAL) 1+ POLYCHROMASIA (NORMAL) 1+ OVALOCYTES (NORMAL) 11/07/19 05:23 RBC Morph Micro Appear 1+ ANISOCYTOSIS (NORMAL) 1+ HYPOCHROMASIA (NORMAL) 1+ POLYCHROMASIA (NORMAL) 1+ OVALOCYTES (NORMAL) 11/07/19 05:23 PT 15.1 secs (9.9-12.6) H 11/05/19 09:23 INR 1.3 (0.8-1.2) H 11/05/19 09:23 Sodium 139 mmol/L (135-145) 11/07/19 05:23 Potassium 3.4 mmol/L (3.5-5.0) L 11/07/19 05:23 Chloride 105 mmol/L (101-111) 11/07/19 05:23 Carbon Dioxide 28 mmol/L (21-32) 11/07/19 05:23 Anion Gap 6.0 (6-13) 11/07/19 05:23 BUN 8 mg/dL (6-20) 11/07/19 05:23 Creatinine 0.5 mg/dL (0.6-1.2) L 11/07/19 05:23 Estimated GFR (MDRD) 163 (>89) 11/07/19 05:23 Glucose 97 mg/dL (70-100) 11/07/19 05:23 POC Whole Bld Glucose 132 mg/dL (70 - 100) H 11/06/19 20:47 Calcium 7.9 mg/dL (8.5-10.3) L 11/07/19 05:23 Total Bilirubin 0.4 mg/dL (0.2-1.0) 11/05/19 09:23 AST 16 IU/L (10-42) 11/05/19 09:23 ALT 10 IU/L (10-60) 11/05/19 09:23 Alkaline Phosphatase 37 IU/L (42-121) L 11/05/19 09:23 B-Natriuretic Peptide 28 pg/mL (5-100) 11/05/19 09:23 Total Protein 5.3 g/dL (6.7-8.2) L 11/05/19 09:23 Albumin 3.0 g/dL (3.2-5.5) L 11/05/19 09:23 Globulin 2.3 g/dL (2.1-4.2) 11/05/19 09:23 Albumin/Globulin Ratio 1.3 (1.0-2.2) 11/05/19 09:23 Lipase 27 U/L (22-51) 11/05/19 09:23 Urine Color LT. YELLOW 11/05/19 10:25 Urine Clarity CLEAR (CLEAR) 11/05/19 10:25 Urine pH 6.0 PH (5.0-7.5) 11/05/19 10:25 Ur Specific Aubrey 1.010 (1.002-1.030) 11/05/19 10:25 Urine Protein NEGATIVE mg/dL (NEGATIVE) 11/05/19 10:25 Urine Glucose (UA) NEGATIVE mg/dL (NEGATIVE) 11/05/19 10:25 Urine Ketones NEGATIVE mg/dL (NEGATIVE) 11/05/19 10:25 Urine Occult Blood NEGATIVE (NEGATIVE) 11/05/19 10:25 Urine Nitrite NEGATIVE (NEGATIVE) 11/05/19 10:25 Urine Bilirubin NEGATIVE (NEGATIVE) 11/05/19 10:25 Urine Urobilinogen 0.2 (NORMAL) E.U./dL (NORMAL) 11/05/19 10:25 Ur Leukocyte Esterase NEGATIVE (NEGATIVE) 11/05/19 10:25 Ur Microscopic Review NOT INDICATED 11/05/19 10:25 Urine Culture Comments NOT INDICATED 11/05/19 10:25 Blood Type O POSITIVE 11/05/19 09:12 Antibody Screen NEGATIVE 11/05/19 09:12 Crossmatch IS Only See Detail 11/05/19 09:12 - Procedures Procedures: Procedures EXCISION OF RIGHT KNEE JOINT, PERC ENDO APPROACH (09/03/15) ABX Reporting Has patient been on IV antibiotics over the past 48 hours?: No
[2019-11-07] MEDS ORDERED: MULTIVITAMIN W/MINERALS TABLET PO SCH (08:00)
[2019-11-07] MEDS ORDERED: FERROUS GLUCONATE 324 MG TABLET PO SCH (08:00)
--- NOTE | 2019-11-07 08:07 | Discharge Plan ---
Discharge Plan Problem Reviewed?: Yes Disposition: Home, Self Care Condition: Stable Diet: Diabetic Activity Restrictions: Activity as Tolerated Shower Restrictions: No Driving Restrictions: No Instruction Topics: ED Diverticulosis Health Concerns: You were admitted with a recurrence of GI bleeding. You were dizzy and short of breath because of severe anemia. You needed blood transfusions and the anemia has stabilized. The bleeding scan showed that the bleeding site was from the sigmoid colon. Endoscopy showed that you have diverticulosis. You may still have left over blood in the colon and see blood in you bowel movements for about a day. You are being discharged and advised to follow a diabetic diet with low fiber for diverticulosis management. Resume your usual medications except remain off of aspirin and ibuprofen and aspirin-like products until okayed to resume daily aspirin by your PCP. You should keep taking the iron replacement pills and have hemoglobin blood tests followed by your PCP. If you have new or worsening symptoms, call your PCP for advice or come to the ER. Plan of Treatment: As above. Care Goals: Stabilization and improvement of symptoms are the goals. Assessment: The patient is agreeable with the plan. No Smoking: If you smoke, Please STOP! Call for help. Follow-up with: Pavel Francois MD [Primary Care Provider] -
--- NOTE | 2019-11-07 08:25 | DISCHARGE SUMMARY ---
"Discharge Summary Admit Date: 11/05/19 Discharge Date: 11/07/19 Discharging Provider: Dr Mya Cornejo Primary Care Provider: Dr Avinash Francois Code Status: Attempt Resuscitation Condition at Discharge: Stable Discharge Disposition: 01 Home, Self Care - DIAGNOSES Admission Diagnoses: 1) GI bleed 2) Anemia 3) Snf antiplatelet use 4) CAD 5) DM, type 2 6) HTN 7) Hyprlipidemia 8) Lung CA Discharge Diagnoses with Status of Each Condition: See below - HPI History of Present Illness: This is a 74-year-old white male with a history of hypertension, CAD, hyperlipidemia and diabetes who was admitted here 1 week previously with shortness of breath felt to be from marked anemia and he had heme positive stools then. He received transfusion and decided not to have any endoscopy as long as the hemoglobin stabilized. He was sent home with empiric peptic ulcer meds, iron replacement and total to stop taking his daily aspirin until seen by his PCP and advised resumption. The patient never stopped his aspirin. It arrived this time more short of breath and with new dizziness and new weakness. He was found to have a hemoglobin of 5.8 and maroon and black bowel movements. He was admitted for management of lower GI blood loss anemia, transfusion and agreed to undergo endoscopies. - CONSULTS | PROCEDURES Consultations: Dr Alex Feliz Procedures: EGD, colonoscopy. - HOSPITAL COURSE Hospital Course: (1) Anemia due to GI blood loss Patient required transfusions this admission which have helped his energy. He underwent EGD which found no source of bleeding. While waiting for colonoscopy the following day, he underwent a nuclear-tagged right blood cell scan which did light up in the sigmoid as the site of his bleed. The following day the c olonoscopy showed diverticula which were no longer bleeding. The patient did have a bloody bowel movement after the colonoscopy probably due to biopsies taken. His diet was advanced, and he was staable and discharged with advice to stay off of aspirin for 1 month. (2) Diverticula of colon The red blood cell tagged nuclear scan revealed the source to be at the sigmoid colon. The following day the colonoscopy showed diverticula which were no longer bleeding. He had a consultation by SUNIL, who reviewed with him and his at bedside, the proper diet for diverticular disease. (3) Hypokalemia Replaced and followed BMP daily (4) Diabetes mellitus After each scoping, we advance his diet to a carb controlled, low fiber diet and sliding scale insulin coverage. Restarting his oral diabetic agent was done at discharge. (5) Hx of coronary artery disease Stable, but ASA will be on hold for a month or so. Continue his cholesterol management. (6) Hypertension BP meds were continued as he had no hypotension. (7) Hyperlipidemia His stain was continued. (8) Metastatic lung cancer He reported a recent PET scan for determination of further cancer management. - ALLERGIES Allergies/Adverse Reactions: Allergies Allergy/AdvReac Type Severity Reaction Status Date / Time No Known Drug Allergies Allergy Verified 11/05/19 09:06 - MEDICATIONS Home Medications: Ambulatory Orders Medication Instructions Recorded Confirmed Cholecalciferol (Vitamin D3) 5,000 unit PO DAILY 09/01/15 11/05/19 [Vitamin D3] Cinnamon Bark [Cinnamon] 1,700 mg PO DAILY 09/01/15 11/05/19 Fenofibrate Nanocrystallized 145 mg PO DAILY 09/01/15 11/05/19 [Tricor] Multivit-Mins/Iron/Folic/Lycop 1 tab PO DAILY 09/01/15 11/05/19 [Centrum Men's Tablet] Niacin [Niacin ER] 500 mg PO DAILY 09/01/15 11/05/19 Pioglitazone HCl [Actos] 45 mg PO DAILY 09/01/15 11/05/19 Ramipril 10 mg PO BID 09/01/15 11/05/19 Rosuvastatin Calcium [Crestor] 20 mg PO QPM 09/01/15 11/05/19 oxyCODONE [Roxicodone] 5 mg PO QID PRN 10/25/19 11/05/19 Ferrous Gluconate 240 mg PO DAILY #30 tablet 10/28/19 11/05/19 Omeprazole 20 mg PO BID #60 capsule. 10/28/19 11/05/19 - PHYSICAL EXAM AT DISCHARGE General Appearance: positive: No acute distress, Alert, Other (Male pattern baldness) Eyes Bilateral: positive: Normal inspection, PERRL, EOMI ENT: positive: ENT inspection nml Neck: positive: Nml inspection, No JVD Respiratory: positive: No respiratory distress, Breath sounds nml Cardiovascular: positive: Regular rate & rhythm, No murmur Abdomen: positive: Non-tender, No distention Skin: positive: Warm, Pallor Extremities: positive: No pedal edema Neurologic/Psychiatric: positive: Oriented x3, Other (Grossly intact) - LABS Result Diagrams: 11/07/19 05:23 11/07/19 05:23 - DIAGNOSTIC IMAGING Diagnostic Imaging Results: Final report reviewed - FOLLOW UP Follow Up: See PCP in the next 1 week for CBC and any medication adjustments. - TIME SPENT Time Spent in Discharge (Minutes): 40"
[2019-11-07 08:42] VITALS: BP 155/66
[2019-11-07] MEDS: lisinopriL 20 MG TABLET PO SCH (08:47)
[2019-11-07] MEDS: INSULIN ASPART 300 UNIT/3 ML PEN SUBQ SCH (08:47)
[2019-11-07] MEDS: FENOFIBRATE 48 MG TABLET PO SCH (08:47)
[2019-11-07] MEDS: PIOGLITAZONE HCL 45 MG PO SCH (08:49)
== END 2019-11-07 11:45 | disposition home or self-care (01) | DRG 811 ==
LOC: ED 08:57 → MS2 10:18
PROVIDERS: ADMIT Internal Medicine; ATTEND Internal Medicine
PROC: 0DJ08ZZ Inspection of Upper Intestinal Tract, Via Natural or Artificial Opening Endoscopic (ICD-10-PCS; 2019-11-05)
PROC: 0DBE8ZX Excision of Large Intestine, Via Natural or Artificial Opening Endoscopic, Diagnostic (ICD-10-PCS; 2019-11-06)
PROC: 30233N1 Transfusion of Nonautologous Red Blood Cells into Peripheral Vein, Percutaneous Approach (ICD-10-PCS; 2019-11-06)
PROC: 0DBP8ZX Excision of Rectum, Via Natural or Artificial Opening Endoscopic, Diagnostic (ICD-10-PCS; principal; 2019-11-06 08:00)
DX: D64.89 Other specified anemias (principal); K92.2 Gastrointestinal hemorrhage, unspecified; D50.0 Iron deficiency anemia secondary to blood loss (chronic); R60.0 Localized edema; K57.31 Diverticulosis of large intestine without perforation or abscess with bleeding; C79.31 Secondary malignant neoplasm of brain; E78.00 Pure hypercholesterolemia, unspecified; C34.90 Malignant neoplasm of unspecified part of unspecified bronchus or lung; I73.9 Peripheral vascular disease, unspecified; E11.9 Type 2 diabetes mellitus without complications; C78.7 Secondary malignant neoplasm of liver and intrahepatic bile duct; G62.2 Polyneuropathy due to other toxic agents; T45.1X5D Adverse effect of antineoplastic and immunosuppressive drugs, subsequent encounter; I25.10 Atherosclerotic heart disease of native coronary artery without angina pectoris; R32 Unspecified urinary incontinence; I10 Essential (primary) hypertension; E78.5 Hyperlipidemia, unspecified; E87.6 Hypokalemia; S22.49XD Multiple fractures of ribs, unspecified side, subsequent encounter for fracture with routine healing; M19.90 Unspecified osteoarthritis, unspecified site; W19.XXXD Unspecified fall, subsequent encounter; Z79.02 Long term (current) use of antithrombotics/antiplatelets; Z79.84 Long term (current) use of oral hypoglycemic drugs; Z87.891 Personal history of nicotine dependence; Z90.49 Acquired absence of other specified parts of digestive tract; Z92.3 Personal history of irradiation; Z86.79 Personal history of other diseases of the circulatory system; Z82.49 Family history of ischemic heart disease and other diseases of the circulatory system
CPT/HCPCS: 36415; 71045; 78278; 80048; 80053; 81003; 83690; 83880; 85014; 85018; 85025; 85610; 86850; 86900; 86901; 86920; 93005; 96374; 99283; 99285; A9270; J7120; P9016; 81001; 87086

== ENCOUNTER 2019-11-08 08:00 | Outpatient (CLI) | payer MEDICARE, OTHER ==
[2019-11-08 18:00] LABS: CREATININE 0.6 mg/dL (0.6-1.2)
== END 2019-11-08 23:59 | disposition home or self-care (01) ==
LOC: LAB.S 08:00
PROVIDERS: ATTEND Specialist
DX: C34.12 Malignant neoplasm of upper lobe, left bronchus or lung (principal); C34.90 Malignant neoplasm of unspecified part of unspecified bronchus or lung; C79.31 Secondary malignant neoplasm of brain
CPT/HCPCS: 36415; 82565; 84520

== ENCOUNTER 2019-11-12 08:00 | Outpatient (CLI) | payer MEDICARE, OTHER ==
[2019-11-12 17:22] LABS: HGB - HEMOGLOBIN 11.4 g/dL (14.0-18.0); MEAN CORPUSCULAR HEMOGLOBIN 30.5 pg (27.0-31.0); MEAN CORPUSCULAR HGB CONC 30.8 g/dL (32.0-36.0); MEAN CORPUSCULAR VOLUME 98.9 fL (80.0-94.0); MEAN PLATELET VOLUME 10.2 fL (7.4-11.4); RED BLOOD COUNT 3.74 10^6/uL (4.70-6.10); RED CELL DISTRIBUTION WIDTH 21.8 % (12.0-15.0); WHITE BLOOD COUNT 5.7 x10^3/uL (4.8-10.8)
== END 2019-11-12 23:59 | disposition home or self-care (01) ==
LOC: LAB.S 08:00
PROVIDERS: ATTEND Internal Medicine
DX: K92.2 Gastrointestinal hemorrhage, unspecified (principal)
CPT/HCPCS: 36415; 85025; 85027

== ENCOUNTER 2019-11-25 11:16 | Outpatient (CLI) | payer MEDICARE, OTHER ==
[2019-11-25 17:44] LABS: BASOPHILS # (AUTO) 0.1 10^3/uL (0.0-0.1); BASOPHILS % (AUTO) 1.1 %; EOSINOPHILS # (AUTO) 0.1 10^3/uL (0.0-0.7); EOSINOPHILS % (AUTO) 1.3 %; HGB - HEMOGLOBIN 11.6 g/dL (14.0-18.0); LYMPHOCYTES # (AUTO) 1.7 10^3/uL (1.5-3.5); LYMPHOCYTES % (AUTO) 20.5 %; MEAN CORPUSCULAR HEMOGLOBIN 30.7 pg (27.0-31.0); MEAN CORPUSCULAR HGB CONC 30.1 g/dL (32.0-36.0); MEAN CORPUSCULAR VOLUME 101.9 fL (80.0-94.0); MEAN PLATELET VOLUME 9.2 fL (7.4-11.4); MONOCYTES # (AUTO) 0.9 10^3/uL (0.0-1.0); MONOCYTES % (AUTO) 10.4 %; NEUTROPHILS # (AUTO) 5.4 10^3/uL (1.5-6.6); NEUTROPHILS % (AUTO) 66.5 %; PLT - PLATELET COUNT 364 10^3/uL (130-450); RED BLOOD COUNT 3.78 10^6/uL (4.70-6.10); RED CELL DISTRIBUTION WIDTH 20.6 % (12.0-15.0); WHITE BLOOD COUNT 8.2 x10^3/uL (4.8-10.8)
[2019-11-25 18:06] LABS: PLATELET ESTIMATE, MANUAL NORMAL (130-450,000) (NORMAL); PLATELET MORPHOLOGY NORMAL APPEARANCE (NORMAL)
[2019-11-25 18:19] LABS: ALBUMIN 3.4 g/dL (3.2-5.5); ALBUMIN/GLOBULIN RATIO 1.1 (1.0-2.2); BILIRUBIN,TOTAL 0.4 mg/dL (0.2-1.0); CALCIUM 9.3 mg/dL (8.5-10.3); CREATININE 0.7 mg/dL (0.6-1.2); TOTAL PROTEIN 6.4 g/dL (6.7-8.2)
== END 2019-11-25 11:17 | disposition home or self-care (01) ==
LOC: LAB.S 11:16
PROVIDERS: ATTEND Internal Medicine
DX: C34.12 Malignant neoplasm of upper lobe, left bronchus or lung (principal); C79.31 Secondary malignant neoplasm of brain
CPT/HCPCS: 36415; 80053; 85025

== ENCOUNTER 2019-12-03 08:00 | Outpatient (CLI) | payer MEDICARE, OTHER | END 2019-12-03 23:59 | disposition home or self-care (01) | LOC: LAB.R 08:00 | PROVIDERS: ATTEND Internal Medicine | DX: C34.12 Malignant neoplasm of upper lobe, left bronchus or lung (principal); C34.90 Malignant neoplasm of unspecified part of unspecified bronchus or lung; C79.31 Secondary malignant neoplasm of brain | CPT/HCPCS: 87493 ==

== ENCOUNTER 2019-12-16 13:38 | Outpatient (CLI) | payer MEDICARE, OTHER ==
[2019-12-16 17:41] LABS: BASOPHILS # (AUTO) 0.1 10^3/uL (0.0-0.1); BASOPHILS % (AUTO) 0.7 %; EOSINOPHILS # (AUTO) 0.2 10^3/uL (0.0-0.7); EOSINOPHILS % (AUTO) 1.9 %; HGB - HEMOGLOBIN 11.2 g/dL (14.0-18.0); LYMPHOCYTES # (AUTO) 2.3 10^3/uL (1.5-3.5); LYMPHOCYTES % (AUTO) 28.7 %; MEAN CORPUSCULAR HEMOGLOBIN 30.8 pg (27.0-31.0); MEAN CORPUSCULAR HGB CONC 30.8 g/dL (32.0-36.0); MEAN PLATELET VOLUME 8.9 fL (7.4-11.4); MONOCYTES # (AUTO) 1.2 10^3/uL (0.0-1.0); MONOCYTES % (AUTO) 14.5 %; NEUTROPHILS # (AUTO) 4.3 10^3/uL (1.5-6.6); NEUTROPHILS % (AUTO) 53.8 %; PLT - PLATELET COUNT 427 10^3/uL (130-450); RED BLOOD COUNT 3.64 10^6/uL (4.70-6.10); WHITE BLOOD COUNT 8.1 x10^3/uL (4.8-10.8)
[2019-12-16 18:08] LABS: ALBUMIN 3.3 g/dL (3.2-5.5); ALBUMIN/GLOBULIN RATIO 0.9 (1.0-2.2); BILIRUBIN,TOTAL 0.4 mg/dL (0.2-1.0); CREATININE 0.8 mg/dL (0.6-1.2)
== END 2019-12-16 13:39 | disposition home or self-care (01) ==
LOC: LAB.S 13:38
PROVIDERS: ATTEND Internal Medicine
DX: C34.12 Malignant neoplasm of upper lobe, left bronchus or lung (principal); C79.31 Secondary malignant neoplasm of brain; R19.7 Diarrhea, unspecified
CPT/HCPCS: 36415; 80053; 83735; 85025

== ENCOUNTER 2020-03-02 11:21 | Outpatient (CLI) | payer MEDICARE, OTHER ==
[2020-03-02 11:43] LABS: BASOPHILS % (AUTO) 0.3 %; HGB - HEMOGLOBIN 11.4 g/dL (14.0-18.0); LYMPHOCYTES # (AUTO) 1.5 10^3/uL (1.5-3.5); MEAN CORPUSCULAR HEMOGLOBIN 31.1 pg (27.0-31.0); MEAN CORPUSCULAR HGB CONC 31.8 g/dL (32.0-36.0); MEAN CORPUSCULAR VOLUME 97.8 fL (80.0-94.0); MEAN PLATELET VOLUME 8.5 fL (7.4-11.4); MONOCYTES # (AUTO) 0.5 10^3/uL (0.0-1.0); MONOCYTES % (AUTO) 4.5 %; NEUTROPHILS # (AUTO) 8.8 10^3/uL (1.5-6.6); NEUTROPHILS % (AUTO) 79.7 %; PLT - PLATELET COUNT 290 10^3/uL (130-450); RED BLOOD COUNT 3.66 10^6/uL (4.70-6.10); RED CELL DISTRIBUTION WIDTH 16.3 % (12.0-15.0)
[2020-03-02 11:52] LABS: ALBUMIN 3.9 g/dL (3.2-5.5); ALBUMIN/GLOBULIN RATIO 1.2 (1.0-2.2); BILIRUBIN,TOTAL 0.8 mg/dL (0.2-1.0); CALCIUM 8.9 mg/dL (8.5-10.3); CREATININE 0.7 mg/dL (0.6-1.2); TOTAL PROTEIN 7.1 g/dL (6.7-8.2)
== END 2020-03-02 11:22 | disposition home or self-care (01) ==
LOC: LAB 11:21
PROVIDERS: ATTEND Internal Medicine
DX: C34.92 Malignant neoplasm of unspecified part of left bronchus or lung (principal)
CPT/HCPCS: 36415; 80053; 84443; 85025

== ENCOUNTER 2020-03-23 15:06 | Outpatient (CLI) | payer MEDICARE, OTHER ==
[2020-03-23 15:26] LABS: BASOPHILS % (AUTO) 0.3 %; EOSINOPHILS # (AUTO) 0.8 10^3/uL (0.0-0.7); EOSINOPHILS % (AUTO) 6.8 %; HGB - HEMOGLOBIN 11.6 g/dL (14.0-18.0); LYMPHOCYTES # (AUTO) 3.8 10^3/uL (1.5-3.5); LYMPHOCYTES % (AUTO) 30.8 %; MEAN CORPUSCULAR HEMOGLOBIN 30.5 pg (27.0-31.0); MEAN CORPUSCULAR HGB CONC 31.1 g/dL (32.0-36.0); MEAN CORPUSCULAR VOLUME 98.2 fL (80.0-94.0); MEAN PLATELET VOLUME 8.4 fL (7.4-11.4); MONOCYTES # (AUTO) 1.1 10^3/uL (0.0-1.0); MONOCYTES % (AUTO) 9.1 %; NEUTROPHILS # (AUTO) 6.5 10^3/uL (1.5-6.6); NEUTROPHILS % (AUTO) 52.6 %; PLT - PLATELET COUNT 346 10^3/uL (130-450); WHITE BLOOD COUNT 12.4 x10^3/uL (4.8-10.8)
[2020-03-23 15:42] LABS: ALBUMIN 3.9 g/dL (3.2-5.5); ALBUMIN/GLOBULIN RATIO 1.2 (1.0-2.2); BILIRUBIN,TOTAL 0.4 mg/dL (0.2-1.0); CALCIUM 11.1 mg/dL (8.5-10.3); CREATININE 0.8 mg/dL (0.6-1.2); MAGNESIUM 1.2 mg/dL (1.7-2.8); TOTAL PROTEIN 7.1 g/dL (6.7-8.2)
== END 2020-03-23 15:07 | disposition home or self-care (01) ==
LOC: LAB 15:06
PROVIDERS: ATTEND Internal Medicine
DX: C34.92 Malignant neoplasm of unspecified part of left bronchus or lung (principal)
CPT/HCPCS: 36415; 80053; 83735; 84443; 85025

== ENCOUNTER 2020-04-13 10:46 | Outpatient (CLI) | payer MEDICARE, OTHER ==
[2020-04-13 15:03] LABS: BASOPHILS % (AUTO) 0.3 %; EOSINOPHILS # (AUTO) 0.2 10^3/uL (0.0-0.7); EOSINOPHILS % (AUTO) 2.9 %; HGB - HEMOGLOBIN 9.2 g/dL (14.0-18.0); LYMPHOCYTES # (AUTO) 2.4 10^3/uL (1.5-3.5); LYMPHOCYTES % (AUTO) 36.8 %; MEAN CORPUSCULAR HEMOGLOBIN 28.8 pg (27.0-31.0); MEAN CORPUSCULAR HGB CONC 29.6 g/dL (32.0-36.0); MEAN CORPUSCULAR VOLUME 97.2 fL (80.0-94.0); MEAN PLATELET VOLUME 9.5 fL (7.4-11.4); MONOCYTES # (AUTO) 0.9 10^3/uL (0.0-1.0); MONOCYTES % (AUTO) 14.2 %; NEUTROPHILS % (AUTO) 45.5 %; PLT - PLATELET COUNT 248 10^3/uL (130-450); RED CELL DISTRIBUTION WIDTH 14.8 % (12.0-15.0); WHITE BLOOD COUNT 6.6 x10^3/uL (4.8-10.8)
[2020-04-13 15:26] LABS: ALBUMIN 3.3 g/dL (3.2-5.5); ALBUMIN/GLOBULIN RATIO 0.9 (1.0-2.2); BILIRUBIN,TOTAL 0.3 mg/dL (0.2-1.0); CALCIUM 9.1 mg/dL (8.5-10.3); CREATININE 0.7 mg/dL (0.6-1.2); MAGNESIUM 1.2 mg/dL (1.7-2.8); TOTAL PROTEIN 6.8 g/dL (6.7-8.2)
== END 2020-04-13 10:47 | disposition home or self-care (01) ==
LOC: LAB.S 10:46
PROVIDERS: ATTEND Internal Medicine
DX: C34.92 Malignant neoplasm of unspecified part of left bronchus or lung (principal)
CPT/HCPCS: 36415; 80053; 83735; 85025

== ENCOUNTER 2020-04-24 11:25 | Outpatient (CLI) | payer MEDICARE, OTHER ==
[2020-04-24 15:03] LABS: HGB - HEMOGLOBIN 9.6 g/dL (14.0-18.0)
== END 2020-04-24 11:26 | disposition home or self-care (01) ==
LOC: LAB.S 11:25
PROVIDERS: ATTEND Internal Medicine
DX: C34.92 Malignant neoplasm of unspecified part of left bronchus or lung (principal)
CPT/HCPCS: 36415; 85014; 85018

== ENCOUNTER 2020-05-04 14:56 | Outpatient (CLI) | payer MEDICARE, OTHER ==
[2020-05-04 20:48] LABS: BASOPHILS % (AUTO) 0.3 %; EOSINOPHILS # (AUTO) 0.1 10^3/uL (0.0-0.7); EOSINOPHILS % (AUTO) 0.8 %; HGB - HEMOGLOBIN 10.1 g/dL (14.0-18.0); LYMPHOCYTES % (AUTO) 37.3 %; MEAN CORPUSCULAR HEMOGLOBIN 30.4 pg (27.0-31.0); MEAN CORPUSCULAR HGB CONC 30.7 g/dL (32.0-36.0); MEAN CORPUSCULAR VOLUME 99.1 fL (80.0-94.0); MEAN PLATELET VOLUME 9.1 fL (7.4-11.4); MONOCYTES % (AUTO) 12.9 %; NEUTROPHILS # (AUTO) 3.9 10^3/uL (1.5-6.6); NEUTROPHILS % (AUTO) 48.4 %; PLT - PLATELET COUNT 356 10^3/uL (130-450); RED BLOOD COUNT 3.32 10^6/uL (4.70-6.10); RED CELL DISTRIBUTION WIDTH 17.1 % (12.0-15.0)
[2020-05-04 21:33] LABS: ALBUMIN 3.6 g/dL (3.2-5.5); ALBUMIN/GLOBULIN RATIO 1.2 (1.0-2.2); BILIRUBIN,TOTAL 0.4 mg/dL (0.2-1.0); CREATININE 0.7 mg/dL (0.6-1.2); MAGNESIUM 1.3 mg/dL (1.7-2.8); TOTAL PROTEIN 6.7 g/dL (6.7-8.2)
== END 2020-05-04 14:57 | disposition home or self-care (01) ==
LOC: LAB.S 14:56
PROVIDERS: ATTEND Nurse Practitioner Gerontology
DX: C34.92 Malignant neoplasm of unspecified part of left bronchus or lung (principal)
CPT/HCPCS: 36415; 80053; 82728; 83540; 83735; 84466; 85025

== ENCOUNTER 2020-05-15 16:26 | Outpatient (CLI) | payer MEDICARE, OTHER ==
[2020-05-15 20:37] LABS: ALBUMIN 3.3 g/dL (3.2-5.5); ALBUMIN/GLOBULIN RATIO 1.1 (1.0-2.2); ALKALINE PHOSPHATASE 45 IU/L (42-121); ALT ALANINE AMINOTRANSFERASE < 10 IU/L (10-60); AMYLASE 28 U/L (28-100); AST ASPARTATE AMINOTRANSFERASE 18 IU/L (10-42); BILIRUBIN,TOTAL 0.4 mg/dL (0.2-1.0); BUN - BLOOD UREA NITROGEN 25 mg/dL (6-20); CARBON DIOXIDE - CO2 26 mmol/L (21-32); CHLORIDE 96 mmol/L (101-111); CREATININE 0.9 mg/dL (0.6-1.2); GLUCOSE 241 mg/dL (70-100); LIPASE 24 U/L (22-51); SODIUM 133 mmol/L (135-145); TOTAL PROTEIN 6.4 g/dL (6.7-8.2)
== END 2020-05-15 16:27 | disposition home or self-care (01) ==
LOC: LAB.S 16:26
PROVIDERS: ATTEND Internal Medicine
DX: C34.82 Malignant neoplasm of overlapping sites of left bronchus and lung (principal)
CPT/HCPCS: 36415; 80053; 82150; 83690

== ENCOUNTER 2020-05-22 13:25 | Outpatient (CLI) | payer MEDICARE, OTHER | END 2020-05-22 13:26 | disposition critical access hospital (66) | LOC: EMS 13:25 | PROVIDERS: ATTEND Surgery | DX: R53.1 Weakness (principal); R19.7 Diarrhea, unspecified; R10.9 Unspecified abdominal pain | CPT/HCPCS: A0425; A0427 ==

== ENCOUNTER 2020-06-15 15:18 | Outpatient (CLI) | payer MEDICARE, OTHER ==
[2020-06-15 20:25] LABS: BASOPHILS % (AUTO) 0.3 %; EOSINOPHILS # (AUTO) 0.1 10^3/uL (0.0-0.7); EOSINOPHILS % (AUTO) 0.5 %; HGB - HEMOGLOBIN 10.5 g/dL (14.0-18.0); LYMPHOCYTES # (AUTO) 2.9 10^3/uL (1.5-3.5); LYMPHOCYTES % (AUTO) 24.9 %; MEAN CORPUSCULAR HEMOGLOBIN 30.4 pg (27.0-31.0); MEAN CORPUSCULAR HGB CONC 30.3 g/dL (32.0-36.0); MEAN CORPUSCULAR VOLUME 100.3 fL (80.0-94.0); MEAN PLATELET VOLUME 8.5 fL (7.4-11.4); MONOCYTES # (AUTO) 1.4 10^3/uL (0.0-1.0); MONOCYTES % (AUTO) 11.5 %; NEUTROPHILS # (AUTO) 7.3 10^3/uL (1.5-6.6); NEUTROPHILS % (AUTO) 62.1 %; PLT - PLATELET COUNT 477 10^3/uL (130-450); RED BLOOD COUNT 3.45 10^6/uL (4.70-6.10); RED CELL DISTRIBUTION WIDTH 18.7 % (12.0-15.0); WHITE BLOOD COUNT 11.7 x10^3/uL (4.8-10.8)
[2020-06-15 20:50] LABS: % IRON SATURATION 9 % (20-50); ALBUMIN/GLOBULIN RATIO 0.8 (1.0-2.2); ALKALINE PHOSPHATASE 58 IU/L (42-121); ALT ALANINE AMINOTRANSFERASE < 10 IU/L (10-60); AST ASPARTATE AMINOTRANSFERASE 21 IU/L (10-42); BILIRUBIN,TOTAL < 0.2 mg/dL (0.2-1.0); BUN - BLOOD UREA NITROGEN 15 mg/dL (6-20); CALCIUM 9.3 mg/dL (8.5-10.3); CARBON DIOXIDE - CO2 27 mmol/L (21-32); CHLORIDE 99 mmol/L (101-111); CREATININE 0.6 mg/dL (0.6-1.2); GLUCOSE 158 mg/dL (70-100); IRON 25 ug/dL (45-182); SODIUM 138 mmol/L (135-145); TOTAL IRON BINDING CAPACITY 294 ug/dL (250-450); TRANSFERRIN 210 mg/dL (180-329)
== END 2020-06-15 15:19 | disposition home or self-care (01) ==
LOC: LAB.S 15:18
PROVIDERS: ATTEND Internal Medicine
DX: C34.82 Malignant neoplasm of overlapping sites of left bronchus and lung (principal)
CPT/HCPCS: 36415; 80053; 82728; 83540; 84466; 85025

== ENCOUNTER 2020-07-06 10:22 | Outpatient (CLI) | payer MEDICARE, OTHER ==
[2020-07-06 16:39] LABS: CREATININE 0.5 mg/dL (0.6-1.2)
== END 2020-07-06 10:23 | disposition home or self-care (01) ==
LOC: LAB.S 10:22
PROVIDERS: ATTEND Physician Assistant
DX: I21.4 Non-ST elevation (NSTEMI) myocardial infarction (principal); I73.9 Peripheral vascular disease, unspecified; C34.12 Malignant neoplasm of upper lobe, left bronchus or lung; C79.31 Secondary malignant neoplasm of brain
CPT/HCPCS: 36415; 82565; 83721; 84520